=== PATIENT | female | born 1970 | race Two or more races ===

== ENCOUNTER 2017-04-29 08:43 | Inpatient (IN) | payer BC, OTHER ==
[~2017-04-29] VITALS: Ht 167.6 cm; Wt 129.7 kg
[~2017-04-29 08:43] MED LIST: CIPRO500 MG PO; DOXYCYCLINE MO100 MG ORAL; NKM; NORCO 10-325 T1 EACH ORAL; NORCO 5-325 TA1 EACH ORAL
[2017-04-29 08:58] VITALS: BP 98/60
[2017-04-29 09:36] LABS: BASOPHILS % (AUTO) 0.6 % (0.0-2.0); EOSINOPHILS % (AUTO) 1.9 % (0.0-3.0); HEMATOCRIT 33.5 % (37.0-47.0); HEMOGLOBIN 10.8 G/DL (12.0-16.0); LYMPHOCYTES % (AUTO) 16.1 % (20.0-45.0); MEAN CORPUSCULAR VOLUME 92 FL (80-99); MONOCYTES % (AUTO) 7.1 % (1.0-10.0); NEUTROPHILS % (AUTO) 74.3 % (45.0-75.0); PLATELET COUNT 345 K/UL (150-450); RED BLOOD COUNT 3.66 M/UL (4.20-5.40); WHITE BLOOD COUNT 10.6 K/UL (4.8-10.8)
--- NOTE | 2017-04-29 09:39 | Emergency Room Report ---
History of Present Illness General Chief Complaint: Skin Rash/Abscess Source: Patient, Medical Record Present Illness HPI Patient with h/o hydradenitis with worsened pain, fever, drainage from lesions L thigh and between glutei. Has been worsening for several days. Taking motrin with fair relief. Pain now rated 10/10 thigh and buttock area, constant and worse when laying on affected areas, not radiating. Pus drainage from thigh and buttock area. Has had surgical treatment in the past. No dysuria. Menses last was normal. No URI, sore throat, cough, chest pain, NVD, joint pain. 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 Last Menstrual Period: 04/17/17 Reviewed Nursing Documentation: PMH: Agreed, PSxH: Agreed Nursing Documentation-PMH Past Medical History: No History, Except For Hx Cardiac Problems: No - hidradenitis suppurativa Hx Cancer: No Hx Gastrointestinal Problems: No Hx Neurological Problems: No Review of Systems All Other Systems: negative except mentioned in HPI Physical Exam Vital Signs Date Time Temp Pulse Resp B/P (MAP) Pulse Ox O2 Delivery O2 Flow Rate FiO2 04/29/17 08:48 97.4 83 18 117/74 100 Room Air 97.3 Sp02 EP Interpretation: reviewed, normal General Appearance: well appearing, no apparent distress, GCS 15 Head: normocephalic Eyes: bilateral eye normal inspection, bilateral eye PERRL ENT: moist mucus membranes Neck: supple Respiratory: lungs clear, normal breath sounds Cardiovascular #1: regular rate, rhythm Cardiovascular #2: 2+ radial (R) Gastrointestinal: normal inspection, normal bowel sounds, non tender, no mass, non-distended, overweight Genitourinary: normal inspection Musculoskeletal: back normal, gait/station normal, normal range of motion Neurologic: alert, oriented x3, grossly normal Psychiatric: mood/affect normal Skin: warm/dry, other - multiple lesions between thighs, worse L with some drainage, some erythema. Also between glutei Medical Decision Making Diagnostic Impression: Primary Impression: Hidradenitis suppurativa Additional Impression: Abscess or cellulitis of groin ER Course Patient with hydradinitis with worsening of lesions with drainage. Ddx: cellulitis, abscesses amongst others. Evaluation with labs, EKG, CXR, culture. Treatment for pain and antibiotics with IV hydration. EKG without injury. CXR normal. Labs with WBC upper limit normal, mild anemia , glucose 110. Improved with treatment. Will need surgical intervention. Admit med, Dr. Bernardo. Laboratory Tests Test 04/29/17 09:10 White Blood Count 10.6 K/UL (4.8-10.8) Red Blood Count 3.66 M/UL (4.20-5.40) L Hemoglobin 10.8 G/DL (12.0-16.0) L Hematocrit 33.5 % (37.0-47.0) L Mean Corpuscular Volume 92 FL (80-99) Mean Corpuscular Hemoglobin 29.6 PG (27.0-31.0) Mean Corpuscular Hemoglobin Concent 32.3 G/DL (32.0-36.0) Red Cell Distribution Width 13.0 % (11.6-14.8) Platelet Count 345 K/UL (150-450) Mean Platelet Volume 6.4 FL (6.5-10.1) L Neutrophils (%) (Auto) 74.3 % (45.0-75.0) Lymphocytes (%) (Auto) 16.1 % (20.0-45.0) L Monocytes (%) (Auto) 7.1 % (1.0-10.0) Eosinophils (%) (Auto) 1.9 % (0.0-3.0) Basophils (%) (Auto) 0.6 % (0.0-2.0) Prothrombin Time 9.1 SEC (9.30-11.50) L Prothrombin Time INR 0.9 (0.9-1.1) PTT 27 SEC (23-33) Urine Color Yellow Urine Appearance Clear Urine pH 5 (4.5-8.0) Urine Specific [place] 1.025 (1.005-1.035) Urine Protein 1+ (NEGATIVE) H Urine Glucose (UA) Negative (NEGATIVE) Urine Ketones Negative (NEGATIVE) Urine Occult Blood 5+ (NEGATIVE) H Urine Nitrite Negative (NEGATIVE) Urine Bilirubin Negative (NEGATIVE) Urine Urobilinogen Normal MG/DL (0.0-1.0) Urine Leukocyte Esterase 1+ (NEGATIVE) H Urine RBC 20-30 /HPF (0 - 2) H Urine WBC 2-4 /HPF (0 - 2) Urine Squamous Epithelial Cells Moderate /LPF (NONE/OCC) H Urine Bacteria Few /HPF (NONE) Urine HCG, Qualitative Negative Sodium Level 136 MMOL/L (136-145) Potassium Level 3.9 MMOL/L (3.5-5.1) Chloride Level 104 MMOL/L (98-107) Carbon Dioxide Level 26 MMOL/L (21-32) Anion Gap 6 mmol/L (5-15) Blood Urea Nitrogen 13 mg/dL (7-18) Creatinine 0.7 MG/DL (0.55-1.30) Estimate Glomerular Filtration Rate > 60 mL/min (>60) Glucose Level 110 MG/DL (74-106) H Calcium Level 8.4 MG/DL (8.5-10.1) L Total Bilirubin 0.2 MG/DL (0.2-1.0) Aspartate Amino Transferase (AST) 14 U/L (15-37) L Alanine Aminotransferase (ALT) 11 U/L (12-78) L Alkaline Phosphatase 79 U/L (46-116) Total Creatine Kinase 51 U/L (26-308) Total Protein 7.8 G/DL (6.4-8.2) Albumin 2.7 G/DL (3.4-5.0) L Globulin 5.1 g/dL Albumin/Globulin Ratio 0.5 (1.0-2.7) L EKG Diagnostic Results Rate: normal Rhythm: NSR ST Segments: no acute changes Rhythm Strip Diag. Results EP Interpretation: yes Rhythm: NSR, no PVC's, no ectopy Chest X-Ray Diagnostic Results Chest X-Ray Diagnostic Results : Chest X-Ray Ordered: Yes # of Views/Limited/Complete: 1 View Indication: Other EP Interpretation: Yes Interpretation: no consolidation, no effusion, no pneumothorax Impression: No acute disease Electronically Signed by: Arvin Martinez MD Last Vital Signs Date Time Temp Pulse Resp B/P (MAP) Pulse Ox O2 Delivery O2 Flow Rate FiO2 04/29/17 13:09 98.6 79 20 111/69 95 04/29/17 11:20 Room Air Status: improved Disposition: ADMITTED INPATIENT Condition: Serious Referrals: KHRIS NOLAN (PCP) Arvin Martinez M.D. Apr 29, 2017 09:38
[2017-04-29 09:40] LABS: COLOR,URINE YELLOW
[2017-04-29 09:41] LABS: APPEARANCE,URINE CLEAR; BILIRUBIN, URINE NEGATIVE (NEGATIVE); GLUCOSE, URINE (UA) NEGATIVE (NEGATIVE); KETONES,URINE NEGATIVE (NEGATIVE); LEUKOCYTE ESTERASE ,URINE 1+ (NEGATIVE); NITRITE,URINE NEGATIVE (NEGATIVE); PH,URINE 5 (4.5-8.0); PROTEIN,URINE 1+ (NEGATIVE); UROBILINOGEN,URINE NORMAL MG/DL (0.0-1.0)
[2017-04-29 09:44] LABS: ALANINE AMINOTRANSFERASE 11 U/L (12-78); ALBUMIN 2.7 G/DL (3.4-5.0); ALBUMIN/GLOBULIN RATIO 0.5 (1.0-2.7); ALKALINE PHOSPHATASE 79 U/L (46-116); ANION GAP 6 mmol/L (5-15); ASPARTATE AMINO TRANSFERASE 14 U/L (15-37); BLOOD UREA NITROGEN 13 mg/dL (7-18); CALCIUM 8.4 MG/DL (8.5-10.1); CARBON DIOXIDE 26 MMOL/L (21-32); CHLORIDE 104 MMOL/L (98-107); CREATINE KINASE 51 U/L (26-308); CREATININE 0.7 MG/DL (0.55-1.30); POTASSIUM 3.9 MMOL/L (3.5-5.1); SODIUM 136 MMOL/L (136-145)
[2017-04-29 09:49] LABS: INR 0.9 (0.9-1.1)
[2017-04-29 10:01] LABS: BILIRUBIN,TOTAL 0.2 MG/DL (0.2-1.0)
[2017-04-29] MEDS ORDERED: Acetaminophen 650 MG SUPP RECTAL PRN ×2 (10:15)
[2017-04-29] MEDS ORDERED: Zolpidem 5mg tab ORAL PRN (10:15)
[2017-04-29] MEDS ORDERED: Morphine Sulfate 2mg/ml Inj IVP PRN (10:15)
[2017-04-29] MEDS ORDERED: Mylanta II UD 30ml ORAL PRN (10:15)
[2017-04-29] MEDS ORDERED: Morphine Sulfate 4mg/ml Inj IVP PRN (10:15)
[2017-04-29] MEDS ORDERED: Ketorolac 30mg Inj IV ONE (10:30)
[2017-04-29] MEDS ORDERED: Vancomycin 1gm inj IVPB ONE (10:38)
[2017-04-29] MEDS ORDERED: Vancomycin 1 GM in D5W 275 ML IVPB ONE (10:45)
[2017-04-29 11:20] VITALS: BP 108/72
--- NOTE | 2017-04-29 11:42 | Diagnostic Imaging Report ---
Indication: Dyspnea Comparison: 12/05/2014 A single view chest radiograph was obtained. Findings: Cardiomediastinal appearance is within normal limits for age. Pulmonary vascularity is appropriate. The diaphragmatic contour is smooth and costophrenic angles are sharp. No pleural effusions are identified. The bones are unremarkable. Impression: No acute findings
--- NOTE | 2017-04-29 12:51 | History and Physical ---
History of Present Illness General Date patient seen: Apr 29, 2017 Time patient seen: 12:51 Reason for Hospitalization: Abscess Present Illness HPI 46y/o female with pmh of inguinal/groin abscesses s/p multiple I+D and flap elevations who presents with recurrent groin swelling/pain/redness/drainage. Pt last admitted 12/09-12/16 for similar symptoms and underwent surgical debridement and flap closure. Pt states she has been doing well but noted recurrent groin lesions w/ redness/pain/swelling/warmth/drainage. Also w/ intermittent subjective fevers/chills. Denies abd pain, n/v, d/c, chest pain, SOB. Pt states at baseline able to ambulate a couple blocks and a few flights of stairs w/o symptoms. Denies h/o AK/CHF/CKD/DM2/HTN. Allergies: Coded Allergies: Shrimp (Verified Allergy, Unknown, 12/10/15) Medication History Scheduled No Known Medications* (NKM - No Known Medications*), 0 ., (Reported) Scheduled PRN Hydrocodone Bit/Acetaminophen 10-325* ([place] 10-325*), 1 TAB ORAL Q6H PRN for For Pain, (Reported) Patient History History Provided By: Patient, Medical Record, PMD Healthcare decision maker Resuscitation status Full Code Advanced Directive on File Past Medical/Surgical History Past Medical/Surgical History: (1) Hidradenitis suppurativa Family History Family History: Patient reports no known family medical history. Social History Social History: (1) No significant social history Review of Systems Constitutional: Reports: fever, malaise, weakness Eye: Reports: no symptoms ENT: Reports: no symptoms Respiratory: Reports: no symptoms Cardiovascular: Reports: no symptoms Gastrointestinal: Reports: no symptoms Genitourinary: Reports: no symptoms Musculoskeletal: Reports: no symptoms Skin: Reports: lesions Psychiatric: Reports: no symptoms Neurological: Reports: no symptoms Endocrine: Reports: no symptoms Hematologic/Lymphatic: Reports: no symptoms Physical Exam Physical Exam Narrative General: alert, cooperative, no distress, appears stated age Head: normocephalic, without obvious abnormality, atraumatic Eyes: conjunctivae/corneas clear. PERRL, EOM's intact Throat: lips, mucosa, and tongue normal. MMM Neck: supple, symmetrical, trachea midline, and no JVD Lungs: clear to auscultation bilaterally Heart: regular rate and rhythm, S1, S2 normal, no murmur, click, rub or gallop Abdomen: soft, non-tender, non-distended, bowel sounds normal; no masses or organomegaly Extremities: extremities normal, atraumatic, no cyanosis or edema Pulses: 2+ and symmetric Skin: skin color, texture, turgor normal; no rashes or lesions Neurologic: grossly normal, no focal deficits Last 24 Hour Vital Signs Date Time Temp Pulse Resp B/P (MAP) Pulse Ox O2 Delivery O2 Flow Rate FiO2 04/29/17 11:20 98.2 85 20 108/72 99 Room Air 98.2 04/29/17 11:20 98.2 85 20 108/72 99 Room Air 207.1 04/29/17 11:11 98.2 04/29/17 10:41 97.3 04/29/17 08:58 97.3 77 19 98/60 100 Room Air 97.3 04/29/17 08:48 97.4 83 18 117/74 100 Room Air 97.3 Laboratory Tests Test 04/29/17 09:10 White Blood Count 10.6 K/UL (4.8-10.8) Red Blood Count 3.66 M/UL (4.20-5.40) L Hemoglobin 10.8 G/DL (12.0-16.0) L Hematocrit 33.5 % (37.0-47.0) L Mean Corpuscular Volume 92 FL (80-99) Mean Corpuscular Hemoglobin 29.6 PG (27.0-31.0) Mean Corpuscular Hemoglobin Concent 32.3 G/DL (32.0-36.0) Red Cell Distribution Width 13.0 % (11.6-14.8) Platelet Count 345 K/UL (150-450) Mean Platelet Volume 6.4 FL (6.5-10.1) L Neutrophils (%) (Auto) 74.3 % (45.0-75.0) Lymphocytes (%) (Auto) 16.1 % (20.0-45.0) L Monocytes (%) (Auto) 7.1 % (1.0-10.0) Eosinophils (%) (Auto) 1.9 % (0.0-3.0) Basophils (%) (Auto) 0.6 % (0.0-2.0) Prothrombin Time 9.1 SEC (9.30-11.50) L Prothromb Time International Ratio 0.9 (0.9-1.1) Activated Partial Thromboplast Time 27 SEC (23-33) Urine Color Yellow Urine Appearance Clear Urine pH 5 (4.5-8.0) Urine Specific [place] 1.025 (1.005-1.035) Urine Protein 1+ (NEGATIVE) H Urine Glucose (UA) Negative (NEGATIVE) Urine Ketones Negative (NEGATIVE) Urine Occult Blood 5+ (NEGATIVE) H Urine Nitrite Negative (NEGATIVE) Urine Bilirubin Negative (NEGATIVE) Urine Urobilinogen Normal MG/DL (0.0-1.0) Urine Leukocyte Esterase 1+ (NEGATIVE) H Urine RBC 20-30 /HPF (0 - 2) H Urine WBC 2-4 /HPF (0 - 2) Urine Squamous Epithelial Cells Moderate /LPF (NONE/OCC) H Urine Bacteria Few /HPF (NONE) Urine HCG, Qualitative Negative Sodium Level 136 MMOL/L (136-145) Potassium Level 3.9 MMOL/L (3.5-5.1) Chloride Level 104 MMOL/L (98-107) Carbon Dioxide Level 26 MMOL/L (21-32) Anion Gap 6 mmol/L (5-15) Blood Urea Nitrogen 13 mg/dL (7-18) Creatinine 0.7 MG/DL (0.55-1.30) Estimat Glomerular Filtration Rate > 60 mL/min (>60) Glucose Level 110 MG/DL (74-106) H Calcium Level 8.4 MG/DL (8.5-10.1) L Total Bilirubin 0.2 MG/DL (0.2-1.0) Aspartate Amino Transf (AST/SGOT) 14 U/L (15-37) L Alanine Aminotransferase (ALT/SGPT) 11 U/L (12-78) L Alkaline Phosphatase 79 U/L (46-116) Total Creatine Kinase 51 U/L (26-308) Total Protein 7.8 G/DL (6.4-8.2) Albumin 2.7 G/DL (3.4-5.0) L Globulin 5.1 g/dL Albumin/Globulin Ratio 0.5 (1.0-2.7) L Height (Feet): 5 Height (Inches): 6.00 Weight (Pounds): 286 Medications Current Medications Medications (Trade) Dose Ordered Sig/Reese Route PRN Reason Start Time Stop Time Status Last Admin Dose Admin Acetaminophen (Tylenol) 650 mg Q4H PRN ORAL Mild Pain (Pain Scale 1-3) 04/29/17 10:15 05/29/17 10:14 Acetaminophen (Tylenol) 650 mg Q4H PRN ORAL fever 04/29/17 10:15 05/29/17 10:14 Acetaminophen (Tylenol) 650 mg Q4H PRN RECTAL Mild Pain (Pain Scale 1-3) 04/29/17 10:15 05/29/17 10:14 Acetaminophen (Tylenol) 650 mg Q4H PRN RECTAL fever 04/29/17 10:15 05/29/17 10:14 Al Hydroxide/Mg Hydroxide (Mylanta II) 30 ml Q6H PRN ORAL dyspepsia 04/29/17 10:15 05/29/17 10:14 Bisacodyl (Dulcolax) 10 mg HSPRN PRN RECTAL Constipation 04/29/17 10:15 05/29/17 10:14 Dextrose (Dextrose 50%) STAT PRN IV Hypoglycemia 04/29/17 10:15 05/29/17 10:14 Dextrose/Sodium Chloride 1,000 ml @ 75 mls/hr [id number] IV 04/30/17 06:00 05/30/17 05:59 Diphenhydramine HCl (Benadryl) 25 mg Q6H PRN ORAL Itching/Pruritis 04/29/17 10:15 05/29/17 10:14 Docusate Sodium (Colace) 100 mg EVERY 12 HOURS ORAL 04/29/17 21:00 05/29/17 20:59 Morphine Sulfate (Morphine Sulfate) 2 mg Q4H PRN IVP Moderate Pain (Pain Scale 4-6) 04/29/17 10:15 05/06/17 10:14 Morphine Sulfate (Morphine Sulfate) 4 mg Q4H PRN IVP Severe Pain (Pain Scale 7-10) 04/29/17 10:15 05/06/17 10:14 Ondansetron HCl (Zofran) 4 mg Q6H PRN IVP Nausea & Vomiting 04/29/17 10:15 05/29/17 10:14 Polyethylene Glycol (Miralax) 17 gm HSPRN PRN ORAL Constipation 04/29/17 10:15 05/29/17 10:14 Zolpidem Tartrate (Ambien) 5 mg HSPRN PRN ORAL Insomnia 04/29/17 10:15 05/06/17 10:14 Assessment/Plan Problem List: (1) Groin abscess ICD Codes: L02.214 - Cutaneous abscess of groin SNOMED: [id number] (2) Hidradenitis suppurativa Status: stable Assessment/Plan Admit inpt Plastic surgery consulted Check blood cultures x 2 Empiric IV ancef Wound care per surgery Pain control, bowel regimen Supportive care If patient is required to have surgery, based on the patient's medical history, and other available ancillary data, the patient is a LOW risk for an INTERMEDIATE risk procedure. Per the most recent ACC/AHA guidelines, the patient does not need any further cardiopulmonary testing prior to the procedure and there do not appear to be any clear medical contraindications to proceeding with the proposed procedure. METs>4 Discussed with patient, RN, SW/CM, surgery regarding mgmt and dispo Huan Roche M.D. Apr 29, 2017 12:51
[2017-04-29 13:09] VITALS: BP 111/69
[2017-04-29 16:21] VITALS: BP 146/66
[2017-04-29] MEDS: Lactobacillus-GG tablet ORAL SCH (17:38)
[2017-04-29] MEDS ORDERED: Lactobacillus-GG tablet ORAL SCH (18:00)
[2017-04-29 20:00] VITALS: BP 123/70
[2017-04-29] MEDS: Docusate 100mg cap ORAL SCH ×2 (21:00→22:39)
[2017-04-29] MEDS: ceFAZolin sod 1 GM in NS 55 ML IVP SCH (22:39)
[2017-04-30] VITALS (13 sets, daily range): BP systolic 104–141; BP diastolic 63–94
[2017-04-30] MEDS: D5 1/2NS 1,000 ML IV SCH ×3 (05:27→19:20)
[2017-04-30] MEDS: ceFAZolin sod 1 GM in NS 55 ML IVP SCH ×2 (05:28→17:30)
[2017-04-30] MEDS ORDERED: Naloxone 0.4mg/ml Inj IV PRN ×2 (08:00)
[2017-04-30] MEDS ORDERED: Propofol 200mg/20ml IV ONE (08:01)
[2017-04-30] MEDS ORDERED: TransDerm Scop 1mg/72HR Patch TDERMAL ONE (08:02)
[2017-04-30] MEDS ORDERED: Bacitracin 50000 Units Vial ONE (08:02)
[2017-04-30] MEDS ORDERED: Lidocaine 1% 10mg/ml/EPI 0.01mg/ml 50ml INJ ONE (08:02)
[2017-04-30] MEDS ORDERED: NeoSporin Gu Irrig 1ml Amp IRRIG ONE (08:02)
[2017-04-30] MEDS: Docusate 100mg cap ORAL SCH ×2 (08:24→21:28)
[2017-04-30] MEDS: Lactobacillus-GG tablet ORAL SCH ×2 (08:24→17:30)
--- NOTE | 2017-04-30 08:35 | Pre-Procedure Note/Attestation ---
Pre-Procedure Note/Attestation Complete Prior to Procedure Planned Procedure: bilateral Procedure Narrative: Bilateral groin and buttock tissue and lower abdominal tissue debridement and flap elevation Attestation I attest that I discussed the nature of the procedure; its benefits; risks and complications; and alternatives (and the risks and benefits of such alternatives ), prior to the procedure, with the patient (or the patient's legal fulfillment representative). I attest that, if there was a reasonable possibility of needing a blood transfusion, the patient (or the patient's legal fulfillment representative) was given the [facility] standardized written summary, pursuant to the Jd Stephen Blood Safety Act ([place] Health and Safety Code # 1645, as amended). I attest that I re-evaluated the patient just prior to the surgery and that there has been no change in the patient's H&P, except as documented below: KHRIS NOLAN Apr 30, 2017 08:35
[2017-04-30] MEDS ORDERED: Zemuron 50mg/5ml Inj IV ONE (09:30)
[2017-04-30] MEDS ORDERED: Midazolam 2mg/2ml Inj ONE (09:30)
[2017-04-30] MEDS ORDERED: Succinylcholine 20mg/ml 10ml vial ONE (09:30)
[2017-04-30] MEDS ORDERED: LR 1000ml ONE (09:30)
[2017-04-30] MEDS ORDERED: fentaNYL 100 mcg/2 mL IV ONE (09:30)
[2017-04-30] MEDS ORDERED: NS Irrig 1000ml ONE (09:30)
[2017-04-30] MEDS ORDERED: Ketorolac 30mg Inj ONE (09:30)
[2017-04-30] MEDS ORDERED: Sterile Water Irrig 1000ml IRRIG ONE (09:30)
[2017-04-30] MEDS ORDERED: Morphine Sulfate 10mg/ml Inj ONE (09:30)
[2017-04-30] MEDS ORDERED: Surgicel 4in x 8in TOPIC ONE ×2 (10:08→10:51)
[2017-04-30] MEDS ORDERED: LR 1000ml 1,000 ML IVLG SCH (10:28)
--- NOTE | 2017-04-30 10:28 | Anethesia Preoperative Eval ---
Anesthesia Pre-op PMH/ROS General Date of Evaluation: Apr 30, 2017 Time of Evaluation: 09:10 Anesthesiologist: Kamila ASA Score: ASA 3 Mallampati Score Class I : Soft palate, uvula, fauces, pillars visible Class II: Soft palate, uvula, fauces visible Class III: Soft palate, base of uvula visible Class IV: Only hard plate visible Mallampati Classification: Class III Surgeon: Brenda Diagnosis: Bilateral groin HS Surgical Procedure: Excision of bilateral groin HSW Anesthesia History: none Family History: no anesthesia problems Allergies: Coded Allergies: Shrimp (Verified Allergy, Unknown, 12/10/15) Past Medical History Cardiovascular: Denies: HTN, CAD, NC, valve dz, arrhythmia, other Pulmonary: Reports: MELINDA, Denies: asthma, COPD, other Gastrointestinal/Genitourinary: Reports: GERD, Denies: CRI, ESRD, other Neurologic/Psychiatric: Reports: depression/anxiety, Denies: dementia, CVA, TIA, other Endocrine: Denies: DM, hypothyroidism, steroids, other HEENT: Denies: cataract (L), cataract (R), glaucoma, [place] (L), [place] (R), other Hematology/Immune: Reports: anemia - mild, Denies: DVT, bleeding disorder, other Musculoskeletal/Integumentary: Denies: OA, RA, DJD, DDD, edema, other Other: obesity PMH Narrative: as above PSxH Narrative: Multiple Sx for recurrent HS treatment Anesthesia Pre-op Phys. Exam Physician Exam Last Vital Signs Date Time Temp Pulse Resp B/P (MAP) Pulse Ox O2 Delivery O2 Flow Rate FiO2 04/30/17 08:00 98.0 93 18 116/65 99 04/30/17 04:00 Room Air Constitutional: NAD Neurologic: CN 2-12 intact Cardiovascular: RRR, no M/R/G Respiratory: CTA Gastrointestinal: other - obesity Airway Exam Mallampati Score: Class III MO: full Neck: short ROM: full Teeth: missing Dentures: no upper, no lower Anesthesia Pre-op A/P Labs see chart Risk Assessment & Plan Assessment: ASA 3 Plan: GA with ETT Status Change Before Surgery: No Pre-Antibiotics Drug: Ancef 2 gr. Given Within 1 Hr of Incision: Yes Time Given: 09:52 SERENA MENON M.D. Apr 30, 2017 10:28
[2017-04-30] MEDS ORDERED: Meperidine 50mg/ml Inj(FOR RIGORS ONLY) IV PRN ×2 (10:30)
[2017-04-30] MEDS ORDERED: DiphenhydrAMINE 50mg/ml Inj IVP PRN (10:30)
[2017-04-30] MEDS ORDERED: Ketorolac 30mg Inj IV PRN (10:30)
[2017-04-30] MEDS ORDERED: Hydromorphone 0.5mg/0.5ml inj IVP PRN (10:30)
[2017-04-30] MEDS ORDERED: Midazolam 2mg/2ml Inj IVP PRN (10:30)
[2017-04-30] MEDS ORDERED: Rate Change PCA 1 Each MISC PRN (10:45)
--- NOTE | 2017-04-30 10:52 | Operative Note - PDOC ---
Operative Note Operative Note Procedure: Bilateral groin, buttock and lower abdominal debridement and flap elevation Post-op Diagnosis: same as pre-op Surgeon: Brenda [employer] Specialist: Jordy Anesthesia: general Specimen: yes Complications: none Condition: stable Estimated Blood Loss: volume Drains: none Implant(s) used?: No - 50 KHRIS NOLAN Apr 30, 2017 10:51
--- NOTE | 2017-04-30 11:26 | Immediate Post-Op Evaluation ---
Immediate Post-Op Evalulation Immediate Post-Op Evalulation Procedure: Excision of bilateral groin HS Date of Evaluation: Apr 30, 2017 Time of Evaluation: 11:25 IV Fluids: 800 Blood Products: none Estimated Blood Loss: 100 Urinary Output: 200 Blood Pressure Systolic: 135 Blood Pressure Diastolic: 74 Pulse Rate: 82 Respiratory Rate: 20 O2 Sat by Pulse Oximetry: 99 Temperature (Fahrenheit): 97.6 Pain Score (1-10): 2 Nausea: No Vomiting: No Complications none Patient Status: awake, patent, extubated, none Hydration Status: adequate SERENA MENON M.D. Apr 30, 2017 11:26
[2017-04-30] MEDS: PCA HYDROmorphone 1mg/ml 30 ML IV PRN (11:40)
[2017-04-30] MEDS ORDERED: PCA Education Pamphlet MISC ONE (12:00)
--- NOTE | 2017-04-30 12:58 | Cardiology Report ---
APPROVED REPORT EKG Measurement Heart [id number] Normal sinus rhythm Normal ECG
[2017-04-30] MEDS ORDERED: D5 1/2NS 1000ml IV ONE (16:19)
[2017-04-30] MEDS ORDERED: Tubing IV Secondary IV ONE (16:19)
--- NOTE | 2017-04-30 18:47 | Consultation ---
DATE OF CONSULTATION: 04/30/2017 HISTORY OF PRESENT ILLNESS: This is a 46-year-old female admitted to the emergency room for multiple areas of active drainage associated with hidradenitis. The patient presented with pain and induration in multiple areas in her groin and buttock region. She was admitted by the medical team for IV antibiotics. PAST MEDICAL HISTORY: Significant for morbid obesity and hidradenitis. PAST SURGICAL HISTORY: Significant for previous hidradenitis suppurativa excision and reconstruction. MEDICATIONS: Include chronic use of antibiotics. ALLERGIES: Shrimp PHYSICAL EXAMINATION: GENERAL: The patient is alert and oriented x3. HEART: Regular rate and rhythm. ABDOMEN: Soft and nondistended, but reveals tender region in the left lower abdomen consistent with a grade 2/3 hidradenitis. EXTREMITIES: Evaluation of the perineum and upper thigh region reveals multiple areas of active abscesses associated with grade 2 and 3 hidradenitis. ASSESSMENT AND PLAN: This is a 46-year-old female with a known history of hidradenitis suppurativa previously treated and reconstructed, who now presents with new areas of disease in the perineum and lower abdomen. She will require radical excision and reconstruction of these areas. She understands the plan and agrees to proceed. Jm Gutierrez M.D. DR: SHANTI JOB#: [id number] CC: SELENA
[2017-04-30] MEDS: PCA shift volume MISC SCH (19:07)
--- NOTE | 2017-04-30 19:32 | Operative Note - Dictated ---
DATE OF OPERATION: 04/30/2017 PREOPERATIVE DIAGNOSIS: Multiple areas of active hidradenitis in the bilateral groin, upper thigh, buttock and abdominal regions. POSTOPERATIVE DIAGNOSIS: Multiple areas of active hidradenitis in the bilateral groin, upper thigh, buttock and abdominal regions. PROCEDURES: 1. Radical excision of hidradenitis bearing tissue in the following areas 1.1. Right inner buttock. 1.2. Right outer buttock. 1.3. Right perivulvar region. 1.4. Right groin. 1.5. Left perivulvar region. 1.6. Left upper thigh. 1.7. Left groin. 1.8. Left lower abdomen. 2. Elevation of a medial thigh fasciocutaneous flap for staged closure of left groin wound with the wound measuring 20 x 10 cm and the flap measurements were 15 x 10 cm. 3. Elevation of a posterior thigh flap for closure of left groin wound with flap measuring 5 x 5 cm. SURGEON: Jm Gutierrez M.D. LINE THERAPIST: Delia Spence M.D. ANESTHESIA: General. COMPLICATIONS: None. DRAINS: None. ESTIMATED BLOOD LOSS: 50 mL. SPECIMEN: Multiple specimens from the hidradenitis bearing tissues including the right inner buttock, right outer buttock, right perivulvar region, left perivulvar region, right groin, left groin, left upper thigh, and left lower abdominal regions. DISPOSITION: Stable to the recovery room. INDICATIONS FOR SURGERY: This is a 46-year-old female with an advanced history of hidradenitis suppurativa who has previously undergone radical excision and reconstruction about two and half years ago in her perineal and groin regions who now presented with new areas that are diseased and affected by her condition. She presented to the emergency room with significant pain and discomfort in these areas and was started on IV antibiotics for her infection. Upon evaluation by me, I felt that she was an appropriate candidate for staged treatment with first radical excision of the infected tissue followed by reconstruction in a staged fashion. The patient understood the risks and benefits of surgery and agreed to proceed. DETAILS OF THE OPERATION: The patient was brought to the operating room and laid in the supine position on the operating table. After induction of anesthesia, she was placed in lithotomy. We began by marking out all eight areas of abscess and disease within her perineum, thigh, and lower abdominal regions. Once this was done, she was fully prepped and draped and we began by first injecting a total of 20 mL of lidocaine with epinephrine to all the involved areas. Once this was done, we then sequentially began by using a #15 blade to individually removal all infected and diseased hidradenitis bearing tissue. First began on the right inner buttock tissue, a elliptical type of incision was designed. A #15 blade was then used to make the incision, radical excision carried down all way to the level of the fascia. We then went on to the right outer buttock tissue in a similar fashion. This excision was performed. She had diseased bearing tissue in the right perivulvar region inferior to the right vulva. This area was also excised using a #15 blade and the electrocautery in a similar fashion. The left perivulvar tissue was also approached with an elliptical type incision and the disease was removed. Next, the left upper thigh had a single lesion, which was removed as well using a #15 blade and then the right groin was addressed with a small lesion that had to be removed with an elliptical type of incision. The larger areas of disease were in the left groin and left lower abdomen. We first turned our attention to the left lower abdomen. An elliptical incision was designed that measured 10 x 5 cm and a #15 blade was then used to make the skin incision. The electrocautery was then used to radically excise the tissue all way down to the level of the Virginia's fascia. We then turned our attention to the left groin diseased bearing tissue and this was a large area that measured 20 x 10 cm. A #15 blade was used to make the skin incision to excise this all way down the level of the adductor fascia. This defect was quite large and could not be closed primarily and there was also a communication with the left perivulvar tissue where there was an opening that was extending into this area as well. As such, a medial thigh flap as well as the posterior thigh flap that was in the vicinity had to be elevated to allow for definitive tension-free repair. The medial thigh flap was elevated by releasing overlying skin and fascial tissue over the adductor muscles with proximal and distal incisions made to fully mobilize the flap and the superficial femoral artery perforators were perfusing this flap. This allowed for closure of the superior aspect; however, the posterior inferior aspect of the wound required elevation of a posterior thigh flap based off of perforators of the inferior gluteal artery with lateral and medial incisions made to fully mobilize this flap. After these two flaps fully mobilized, we were able to close the wound in a tentative fashion without any tension. The flap measurements for the medial thigh flap was 15 x 10 cm and for the posterior thigh flap was 5 x 5 cm. Once this was done, all the wounds were then copiously irrigated with pulse lavage. Once hemostasis was achieved, all the wounds were packed. The plan will be to bring the patient back to the operating room within 3 to 4 days to perform definitive wound closure. Again the reason for not performing definitive closure at this immediate setting is because of the level of purulent tissue and pus that was encountered. The patient tolerated the procedure well and there were no complications. Jm Gutierrez M.D. DR: DEION JOB#: [id number] CC:
[2017-04-30] MEDS: Heparin 5000 units/ml inj SUBQ SCH (21:29)
--- NOTE | 2017-04-30 22:00 | General Progress Note ---
Assessment/Plan Problem List: (1) Groin abscess ICD Codes: L02.214 - Cutaneous abscess of groin SNOMED: 98480990 (2) Hidradenitis suppurativa ICD Codes: L73.2 - Hidradenitis suppurativa SNOMED: 57339962 Status: stable Assessment/Plan Appreciate plastic surgery rec's s/p bilateral groin, buttock and lower abdominal debridement and flap elevation on 04/30/17 Cont empiric IV ancef F/u blood cultures mIVFs Post operative recommendations include: - encourage mobilization/ambulation - encourage incentive spirometry to optimize pulmonary hygiene - DVT/GI prophylaxis as appropriate--SCDs, HSQ - ctm CBC and hemodynamics - ctm electrolytes, adjust/replete prn - pain control, supportive care, bowel regimen FULL CODE A total of 32min of extra time was spent on this encounter in addition to normal encounter time for care/coordination and counseling. Discussed with pt, RN, SW/CM, surgery regarding mgmt and dispo. Subjective Date patient seen: Apr 30, 2017 Time patient seen: 16:00 ROS Limited/Unobtainable: No Constitutional: Reports: no symptoms HEENT: Reports: no symptoms Cardiovascular: Reports: no symptoms Respiratory: Reports: no symptoms Gastrointestinal/Abdominal: Reports: no symptoms Genitourinary: Reports: no symptoms Neurologic/Psychiatric: Reports: no symptoms Endocrine: Reports: no symptoms Hematologic/Lymphatic: Reports: no symptoms Allergies: Coded Allergies: Shrimp (Verified Allergy, Unknown, 12/10/15) Subjective No acute o/n events s/p bilateral groin, buttock and lower abdominal debridement and flap elevation POD#0 Pt doing well. Pain controlled. Denies f/c, n/v, d/c, chest pain, SOB Objective Last 24 Hour Vital Signs Date Time Temp Pulse Resp B/P (MAP) Pulse Ox O2 Delivery O2 Flow Rate FiO2 04/30/17 20:00 98.3 64 18 119/67 98 Room Air 04/30/17 19:46 97 Nasal Cannula 3.0 32 04/30/17 16:00 98.0 76 18 104/67 97 04/30/17 16:00 97 Nasal Cannula 3.0 04/30/17 16:00 18 04/30/17 13:04 16 04/30/17 12:40 95.0 58 18 109/70 96 04/30/17 12:40 96 Nasal Cannula 3.0 04/30/17 12:30 Nasal Cannula 3.0 32 04/30/17 12:30 96 3.0 32 04/30/17 12:30 16 04/30/17 12:25 15 04/30/17 12:17 98.0 67 15 125/72 100 Nasal Cannula 3.0 04/30/17 12:10 14 04/30/17 12:05 58 18 120/74 100 Nasal Cannula 3.0 04/30/17 12:03 98.3 04/30/17 12:03 98.3 04/30/17 11:55 16 04/30/17 11:50 53 18 120/72 100 Nasal Cannula 3.0 04/30/17 11:40 98.3 04/30/17 11:40 55 16 126/74 100 Nasal Cannula 3.0 04/30/17 11:40 15 04/30/17 11:33 98.3 04/30/17 11:28 53 18 126/73 100 Nasal Cannula 3.0 04/30/17 11:26 207.7 82 20 99 04/30/17 11:23 69 18 141/81 100 Simple Mask 6.0 04/30/17 11:18 97.7 65 15 131/81 100 Simple Mask 6.0 04/30/17 08:00 98.0 93 18 116/65 99 04/30/17 04:00 Room Air 04/30/17 04:00 98.3 72 18 108/63 98 04/30/17 00:00 Room Air 04/30/17 00:00 98.3 79 18 128/94 96 Intake and Output 04/29/17 04/30/17 19:00 07:00 Intake Total 600 ml 315 ml Balance 600 ml 315 ml Intake Oral 300 ml 240 ml IV Total 300 ml 75 ml # Voids 1 3 Height (Feet): 5 Height (Inches): 6.00 Weight (Pounds): 286 Objective General: alert, cooperative, no distress, appears stated age Head: normocephalic, without obvious abnormality, atraumatic Eyes: conjunctivae/corneas clear. PERRL, EOM's intact Throat: lips, mucosa, and tongue normal. MMM Neck: supple, symmetrical, trachea midline, and no JVD Lungs: clear to auscultation bilaterally Heart: regular rate and rhythm, S1, S2 normal, no murmur, click, rub or gallop Abdomen: soft, non-tender, non-distended, bowel sounds normal; no masses or organomegaly Extremities: extremities normal, atraumatic, no cyanosis or edema Pulses: 2+ and symmetric Skin: skin color, texture, turgor normal; no rashes or lesions Neurologic: grossly normal, no focal deficits Huan Roche M.D. Apr 30, 2017 22:00
[2017-05-01] MEDS: ceFAZolin sod 1 GM in NS 55 ML IVP SCH ×3 (01:17→17:33)
[2017-05-01] MEDS: D5 1/2NS 1,000 ML IV SCH (01:34)
[2017-05-01 04:00] VITALS: BP 123/64
[2017-05-01] MEDS: PCA shift volume MISC SCH ×2 (07:00→18:59)
[2017-05-01 08:00] VITALS: BP 109/71
[2017-05-01] MEDS: Docusate 100mg cap ORAL SCH ×2 (08:20→20:52)
[2017-05-01] MEDS: Lactobacillus-GG tablet ORAL SCH ×2 (08:21→17:32)
[2017-05-01] MEDS: Heparin 5000 units/ml inj SUBQ SCH ×2 (08:24→20:52)
--- NOTE | 2017-05-01 09:56 | General Progress Note ---
Progress Note Progress Note Pt seen and examined. POD# 1and doing very well. Dressings are CDI Will take down tomorrow and plan for surgery on Thursday for wound closures. MD AN Jhaveri AMIR May 01, 2017 09:56
[2017-05-01 12:00] VITALS: BP 123/58
--- NOTE | 2017-05-01 12:04 | 48 Hour Post Anesthesia Eval ---
Post Anesthesia Evaluation Procedure: Excision of bilateral groin HS Date of Evaluation: May 01, 2017 Time of Evaluation: 12:03 Blood Pressure Systolic: 110 0: 62 Pulse Rate: 74 Respiratory Rate: 20 Temperature (Fahrenheit): 97.6 O2 Sat by Pulse Oximetry: 98 Airway: patent Nausea: No Vomiting: No Pain Intensity: 3 Hydration Status: adequate Cardiopulmonary Status: stable Mental Status/LOC: patient returned to baseline Follow-up Care/Observations: n/a Post-Anesthesia Complications: none Follow-up care needed: N/A SERENA MENON M.D. May 01, 2017 12:04
[2017-05-01] MEDS: PCA HYDROmorphone 1mg/ml 30 ML IV PRN (13:48)
--- NOTE | 2017-05-01 15:34 | General Progress Note ---
Assessment/Plan Problem List: (1) Groin abscess ICD Codes: L02.214 - Cutaneous abscess of groin SNOMED: 31397406 (2) Hidradenitis suppurativa ICD Codes: L73.2 - Hidradenitis suppurativa SNOMED: 97126166 Status: stable Assessment/Plan Appreciate plastic surgery rec's s/p bilateral groin, buttock and lower abdominal debridement and flap elevation on 04/30/17 Cont empiric IV ancef F/u blood cultures D/c IVFs Post operative recommendations include: - encourage mobilization/ambulation - encourage incentive spirometry to optimize pulmonary hygiene - DVT/GI prophylaxis as appropriate--SCDs, HSQ - ctm CBC and hemodynamics - ctm electrolytes, adjust/replete prn - pain control, supportive care, bowel regimen FULL CODE A total of 31min of extra time was spent on this encounter in addition to normal encounter time for care/coordination and counseling. Discussed with pt, RN, SW/CM, surgery regarding mgmt and dispo. D/w surgery re postop mgmt Subjective Date patient seen: May 01, 2017 Time patient seen: 14:50 ROS Limited/Unobtainable: No Constitutional: Reports: no symptoms HEENT: Reports: no symptoms Cardiovascular: Reports: no symptoms Respiratory: Reports: no symptoms Gastrointestinal/Abdominal: Reports: no symptoms Genitourinary: Reports: no symptoms Neurologic/Psychiatric: Reports: no symptoms Endocrine: Reports: no symptoms Hematologic/Lymphatic: Reports: no symptoms Allergies: Coded Allergies: Shrimp (Verified Allergy, Unknown, 12/10/15) Subjective No acute o/n events s/p bilateral groin, buttock and lower abdominal debridement and flap elevation POD#1 Pt doing well. Didn't sleep well. Pain controlled. Denies f/c, n/v, d/c, chest pain, SOB Objective Last 24 Hour Vital Signs Date Time Temp Pulse Resp B/P (MAP) Pulse Ox O2 Delivery O2 Flow Rate FiO2 05/01/17 14:18 97.6 05/01/17 13:48 18 05/01/17 13:48 97.6 05/01/17 13:40 18 05/01/17 12:04 207.7 74 20 98 05/01/17 12:00 18 05/01/17 12:00 98.6 58 17 123/58 98 05/01/17 08:00 97.7 73 18 109/71 98 05/01/17 08:00 18 05/01/17 04:00 18 05/01/17 04:00 98.3 70 18 123/64 98 Room Air 05/01/17 00:00 18 04/30/17 20:00 98.3 64 18 119/67 98 Room Air 04/30/17 20:00 18 04/30/17 19:46 97 Nasal Cannula 3.0 32 04/30/17 16:00 98.0 76 18 104/67 97 04/30/17 16:00 97 Nasal Cannula 3.0 04/30/17 16:00 18 Intake and Output 04/30/17 05/01/17 19:00 07:00 Intake Total 2017.5 ml 1417.5 ml Output Total 250 ml 2000 ml Balance 1767.5 ml -582.5 ml Intake Oral 630 ml 500 ml IV Total 1387.5 ml 917.5 ml Output Urine Total 150 ml 2000 ml Estimated Blood Loss 100 ml Height (Feet): 5 Height (Inches): 6.00 Weight (Pounds): 286 Objective General: alert, cooperative, no distress, appears stated age Head: normocephalic, without obvious abnormality, atraumatic Eyes: conjunctivae/corneas clear. PERRL, EOM's intact Throat: lips, mucosa, and tongue normal. MMM Neck: supple, symmetrical, trachea midline, and no JVD Lungs: clear to auscultation bilaterally Heart: regular rate and rhythm, S1, S2 normal, no murmur, click, rub or gallop Abdomen: soft, non-tender, non-distended, bowel sounds normal; no masses or organomegaly Extremities: extremities normal, atraumatic, no cyanosis or edema Pulses: 2+ and symmetric Skin: skin color, texture, turgor normal; dressing c/d/i Neurologic: grossly normal, no focal deficits Huan Roche M.D. May 01, 2017 15:34
[2017-05-01 16:00] VITALS: BP 121/68
[2017-05-01 20:38] VITALS: BP 126/69
[2017-05-02 00:41] VITALS: BP 112/65
[2017-05-02] MEDS: ceFAZolin sod 1 GM in NS 55 ML IVP SCH ×3 (01:52→17:41)
[2017-05-02 04:43] VITALS: BP 108/67
[2017-05-02] MEDS: PCA shift volume MISC SCH ×3 (07:06→19:13)
[2017-05-02 08:00] VITALS: BP 117/64
[2017-05-02] MEDS ORDERED: Rate Change PCA 1 Each MISC PRN (08:00)
[2017-05-02] MEDS: Docusate 100mg cap ORAL SCH ×2 (08:14→20:11)
[2017-05-02] MEDS: Lactobacillus-GG tablet ORAL SCH ×2 (08:18→17:41)
[2017-05-02] MEDS: Heparin 5000 units/ml inj SUBQ SCH ×2 (08:22→20:13)
[2017-05-02 08:46] LABS: BASOPHILS % (AUTO) 0.7 % (0.0-2.0); EOSINOPHILS % (AUTO) 2.8 % (0.0-3.0); HEMATOCRIT 28.2 % (37.0-47.0); HEMOGLOBIN 9.3 G/DL (12.0-16.0); LYMPHOCYTES % (AUTO) 22.5 % (20.0-45.0); MEAN CORPUSCULAR VOLUME 91 FL (80-99); MONOCYTES % (AUTO) 8.4 % (1.0-10.0); NEUTROPHILS % (AUTO) 65.6 % (45.0-75.0); PLATELET COUNT 273 K/UL (150-450); RED CELL DISTRIBUTION WIDTH 13.3 % (11.6-14.8); WHITE BLOOD COUNT 9.2 K/UL (4.8-10.8)
--- NOTE | 2017-05-02 10:43 | General Progress Note ---
Progress Note Progress Note Pt seen and examined. POD# 2 and doing well. Dressings to be removed and can shower. To OR on thursday. MD NA Jhaveri AMIR May 02, 2017 10:43
[2017-05-02] MEDS ORDERED: Morphine Sulfate 4mg/ml Inj IVP PRN ×2 (11:00)
[2017-05-02 12:00] VITALS: BP 104/63
[2017-05-02] MEDS ORDERED: D5 1/2NS 1000ml IV ONE (14:29)
[2017-05-02] MEDS ORDERED: Tubing IV Secondary IV ONE (14:29)
[2017-05-02] MEDS: PCA HYDROmorphone 1mg/ml 30 ML IV PRN (15:52)
[2017-05-02 16:00] VITALS: BP 120/71
--- NOTE | 2017-05-02 20:03 | General Progress Note ---
Assessment/Plan Problem List: (1) Groin abscess ICD Codes: L02.214 - Cutaneous abscess of groin SNOMED: [id number] (2) Hidradenitis suppurativa ICD Codes: L73.2 - Hidradenitis suppurativa SNOMED: 92848534 Status: stable Assessment/Plan Appreciate plastic surgery rec's s/p bilateral groin, buttock and lower abdominal debridement and flap elevation on 04/30/17 Plan for 2nd surgery on Mon Cont empiric IV ancef F/u blood cultures--ngtd Repeat labs in AM Post operative recommendations include: - encourage mobilization/ambulation - encourage incentive spirometry to optimize pulmonary hygiene - DVT/GI prophylaxis as appropriate--SCDs, HSQ - ctm CBC and hemodynamics - ctm electrolytes, adjust/replete prn - pain control, supportive care, bowel regimen FULL CODE A total of 31min of extra time was spent on this encounter in addition to normal encounter time for care/coordination and counseling. Discussed with pt, RN, SW/CM, surgery regarding mgmt and dispo. D/w surgery re postop mgmt Subjective Date patient seen: May 02, 2017 Time patient seen: 13:00 ROS Limited/Unobtainable: No Constitutional: Reports: no symptoms HEENT: Reports: no symptoms Cardiovascular: Reports: no symptoms Respiratory: Reports: no symptoms Gastrointestinal/Abdominal: Reports: no symptoms Genitourinary: Reports: no symptoms Neurologic/Psychiatric: Reports: no symptoms Endocrine: Reports: no symptoms Hematologic/Lymphatic: Reports: no symptoms Allergies: Coded Allergies: Shrimp (Verified Allergy, Unknown, 12/10/15) All Systems: reviewed and negative except above Subjective No acute o/n events s/p bilateral groin, buttock and lower abdominal debridement and flap elevation POD#2 Pt doing well. Didn't sleep well. Pain controlled. Denies f/c, n/v, d/c, chest pain, SOB. C/o flare-up of acne on face, thinks it is related to Dilaudid Objective Last 24 Hour Vital Signs Date Time Temp Pulse Resp B/P (MAP) Pulse Ox O2 Delivery O2 Flow Rate FiO2 05/02/17 16:00 19 05/02/17 16:00 98.6 77 20 120/71 97 Room Air 05/02/17 12:00 18 05/02/17 12:00 98.0 70 18 104/63 99 Room Air 05/02/17 08:00 97.9 70 20 117/64 98 Room Air 05/02/17 08:00 20 05/02/17 04:43 98.2 85 17 108/67 98 05/02/17 04:00 17 05/02/17 00:41 98.9 73 17 112/65 98 05/01/17 23:56 18 05/01/17 20:38 99.3 84 18 126/69 97 05/01/17 20:00 17 Intake and Output 05/01/17 05/02/17 19:00 07:00 Intake Total 1172.5 ml 800 ml Output Total 1500 ml 2250 ml Balance -327.5 ml -1450 ml Intake Oral 650 ml 800 ml IV Total 522.5 ml Output Urine Total 1500 ml 2250 ml Laboratory Tests 05/02/17 07:10: White Blood Count 9.2, Red Blood Count 3.10L, Hemoglobin 9.3L, Hematocrit 28.2L , Mean Corpuscular Volume 91, Mean Corpuscular Hemoglobin 29.9, Mean Corpuscular Hemoglobin Concent 32.8, Red Cell Distribution Width 13.3, Platelet Count 273, Mean Platelet Volume 6.5, Neutrophils (%) (Auto) 65.6, Lymphocytes (% ) (Auto) 22.5, Monocytes (%) (Auto) 8.4, Eosinophils (%) (Auto) 2.8, Basophils ( %) (Auto) 0.7 Height (Feet): 5 Height (Inches): 6.00 Weight (Pounds): 286 Objective General: alert, cooperative, no distress, appears stated age Head: normocephalic, without obvious abnormality, atraumatic Eyes: conjunctivae/corneas clear. PERRL, EOM's intact Throat: lips, mucosa, and tongue normal. MMM Neck: supple, symmetrical, trachea midline, and no JVD Lungs: clear to auscultation bilaterally Heart: regular rate and rhythm, S1, S2 normal, no murmur, click, rub or gallop Abdomen: soft, non-tender, non-distended, bowel sounds normal; no masses or organomegaly Extremities: extremities normal, atraumatic, no cyanosis or edema Pulses: 2+ and symmetric Skin: skin color, texture, turgor normal; dressing c/d/i Neurologic: grossly normal, no focal deficits Huan Roche M.D. May 02, 2017 20:03
[2017-05-02 20:18] VITALS: BP 108/64
[2017-05-02] MEDS: Miralax 17gm pkt ORAL PRN (22:15)
[2017-05-03 00:48] VITALS: BP 115/64
[2017-05-03] MEDS: ceFAZolin sod 1 GM in NS 55 ML IVP SCH ×3 (02:10→19:09)
[2017-05-03 04:00] VITALS: BP 103/58
[2017-05-03 05:51] LABS: BASOPHILS % (AUTO) 0.7 % (0.0-2.0); EOSINOPHILS % (AUTO) 2.2 % (0.0-3.0); HEMATOCRIT 27.3 % (37.0-47.0); HEMOGLOBIN 9.3 G/DL (12.0-16.0); LYMPHOCYTES % (AUTO) 16.8 % (20.0-45.0); MEAN CORPUSCULAR VOLUME 90 FL (80-99); NEUTROPHILS % (AUTO) 73.2 % (45.0-75.0); PLATELET COUNT 284 K/UL (150-450); RED BLOOD COUNT 3.03 M/UL (4.20-5.40); WHITE BLOOD COUNT 10.2 K/UL (4.8-10.8)
[2017-05-03 06:11] LABS: ANION GAP 3 mmol/L (5-15); BLOOD UREA NITROGEN 6 mg/dL (7-18); CALCIUM 8.1 MG/DL (8.5-10.1); CARBON DIOXIDE 29 MMOL/L (21-32); CHLORIDE 103 MMOL/L (98-107); CREATININE 0.6 MG/DL (0.55-1.30); POTASSIUM 3.7 MMOL/L (3.5-5.1); SODIUM 135 MMOL/L (136-145)
[2017-05-03] MEDS: PCA shift volume MISC SCH ×2 (07:00→19:00)
[2017-05-03 08:39] VITALS: BP 116/74
[2017-05-03] MEDS: Lactobacillus-GG tablet ORAL SCH ×2 (08:55→19:09)
[2017-05-03] MEDS: Docusate 100mg cap ORAL SCH ×2 (08:55→19:53)
[2017-05-03] MEDS: Heparin 5000 units/ml inj SUBQ SCH ×2 (08:59→19:53)
[2017-05-03] MEDS ORDERED: NS 500ML ONE (10:14)
[2017-05-03 11:55] VITALS: BP 126/62
[2017-05-03 16:20] VITALS: BP 117/70
[2017-05-03] MEDS: PCA HYDROmorphone 1mg/ml 30 ML IV PRN (17:22)
[2017-05-03] MEDS: Miralax 17gm pkt ORAL PRN (19:09)
[2017-05-03 20:00] VITALS: BP 133/89
--- NOTE | 2017-05-03 20:48 | General Progress Note ---
Assessment/Plan Problem List: (1) Groin abscess ICD Codes: L02.214 - Cutaneous abscess of groin SNOMED: [id number] (2) Hidradenitis suppurativa ICD Codes: L73.2 - Hidradenitis suppurativa SNOMED: [id number] Status: stable Assessment/Plan Appreciate plastic surgery rec's s/p bilateral groin, buttock and lower abdominal debridement and flap elevation on 04/30/17 Plan for 2nd surgery on Mon, NPO at [place], IVFs Cont empiric IV ancef F/u blood cultures--ngtd Repeat labs in AM Post operative recommendations include: - encourage mobilization/ambulation - encourage incentive spirometry to optimize pulmonary hygiene - DVT/GI prophylaxis as appropriate--SCDs, HSQ - ctm CBC and hemodynamics - ctm electrolytes, adjust/replete prn - pain control, supportive care, bowel regimen FULL CODE A total of 31min of extra time was spent on this encounter in addition to normal encounter time for care/coordination and counseling. Discussed with pt, RN, SW/CM, surgery regarding mgmt and dispo. D/w surgery re postop mgmt, plan for OR tomorrow Subjective Date patient seen: May 03, 2017 Time patient seen: 12:50 ROS Limited/Unobtainable: No Constitutional: Reports: no symptoms HEENT: Reports: no symptoms Cardiovascular: Reports: no symptoms Respiratory: Reports: no symptoms Gastrointestinal/Abdominal: Reports: no symptoms Genitourinary: Reports: no symptoms Neurologic/Psychiatric: Reports: no symptoms Endocrine: Reports: no symptoms Allergies: Coded Allergies: Shrimp (Verified Allergy, Unknown, 12/10/15) Subjective No acute o/n events s/p bilateral groin, buttock and lower abdominal debridement and flap elevation POD#3 Pt doing well. Didn't sleep well. Denies f/c, n/v, d/c, chest pain, SOB. C/o flare-up of acne on face, thinks it is related to Dilaudid Objective Last 24 Hour Vital Signs Date Time Temp Pulse Resp B/P (MAP) Pulse Ox O2 Delivery O2 Flow Rate FiO2 05/03/17 20:00 17 05/03/17 16:20 98.9 67 20 117/70 97 Room Air 05/03/17 16:00 18 05/03/17 13:21 97 Room Air 21 05/03/17 13:21 Room Air 21 05/03/17 12:00 18 05/03/17 11:55 98.4 72 20 126/62 97 05/03/17 08:39 98.4 78 21 116/74 97 05/03/17 08:00 17 05/03/17 04:00 18 05/03/17 04:00 98.8 77 18 103/58 97 05/03/17 00:48 98.7 72 19 115/64 98 Intake and Output 05/02/17 05/03/17 19:00 07:00 Intake Total 850 ml 800 ml Output Total 1200 ml 2200 ml Balance -350 ml -1400 ml Intake Oral 850 ml 800 ml Output Urine Total 1200 ml 2200 ml Laboratory Tests 05/03/17 05:15: White Blood Count 10.2, Red Blood Count 3.03L, Hemoglobin 9.3L, Hematocrit 27.3L , Mean Corpuscular Volume 90, Mean Corpuscular Hemoglobin 30.7, Mean Corpuscular Hemoglobin Concent 34.1, Red Cell Distribution Width 13.0, Platelet Count 284, Mean Platelet Volume 6.5, Neutrophils (%) (Auto) 73.2, Lymphocytes (% ) (Auto) 16.8L, Monocytes (%) (Auto) 7.0, Eosinophils (%) (Auto) 2.2, Basophils (%) (Auto) 0.7, Sodium Level 135L, Potassium Level 3.7, Chloride Level 103, Carbon Dioxide Level 29, Anion Gap 3L, Blood Urea Nitrogen 6L, Creatinine 0.6, Estimat Glomerular Filtration Rate > 60, Glucose Level 96, Calcium Level 8.1L Height (Feet): 5 Height (Inches): 6.00 Weight (Pounds): 286 Objective General: alert, cooperative, no distress, appears stated age Head: normocephalic, without obvious abnormality, atraumatic Eyes: conjunctivae/corneas clear. PERRL, EOM's intact Throat: lips, mucosa, and tongue normal. MMM Neck: supple, symmetrical, trachea midline, and no JVD Lungs: clear to auscultation bilaterally Heart: regular rate and rhythm, S1, S2 normal, no murmur, click, rub or gallop Abdomen: soft, non-tender, non-distended, bowel sounds normal; no masses or organomegaly Extremities: extremities normal, atraumatic, no cyanosis or edema Pulses: 2+ and symmetric Skin: skin color, texture, turgor normal; dressing c/d/i Neurologic: grossly normal, no focal deficits Huan Roche M.D. May 03, 2017 20:48
[2017-05-03] MEDS: D5NS 1,000 ML IV SCH (21:27)
[2017-05-04] VITALS (15 sets, daily range): BP systolic 96–142; BP diastolic 59–83
[2017-05-04] MEDS: ceFAZolin sod 1 GM in NS 55 ML IVP SCH ×3 (01:30→17:27)
[2017-05-04] MEDS ORDERED: Rate Change PCA 1 Each MISC PRN ×2 (07:00→11:50)
[2017-05-04] MEDS ORDERED: Morphine Sulfate 4mg/ml Inj IVP PRN (07:00)
[2017-05-04] MEDS ORDERED: PCA shift volume MISC SCH (07:00)
[2017-05-04] MEDS ORDERED: Bacitracin 50000 Units Vial ONE (07:29)
[2017-05-04] MEDS ORDERED: NeoSporin Gu Irrig 1ml Amp IRRIG ONE (07:29)
[2017-05-04] MEDS ORDERED: Surgicel 4in x 8in TOPIC ONE (07:29)
[2017-05-04] MEDS ORDERED: Lidocaine 1% 10mg/ml/EPI 0.01mg/ml 50ml INJ ONE (07:29)
[2017-05-04] MEDS ORDERED: PCA HYDROmorphone 1mg/ml 30 ML IV PRN (08:00)
[2017-05-04] MEDS: Docusate 100mg cap ORAL SCH ×2 (08:00→20:06)
[2017-05-04] MEDS: Lactobacillus-GG tablet ORAL SCH ×2 (08:00→17:27)
[2017-05-04] MEDS: Heparin 5000 units/ml inj SUBQ SCH ×2 (08:01→20:07)
[2017-05-04] MEDS ORDERED: LR 1000ml 1,000 ML IVLG SCH (08:44)
[2017-05-04] MEDS ORDERED: LORazepam Inj 2mg/ml 1ml IV PRN (08:45)
[2017-05-04] MEDS ORDERED: oxyCODONE HCL/Acetaminophen 5/325mg ORAL PRN (08:45)
[2017-05-04] MEDS ORDERED: Midazolam 2mg/2ml Inj IVP PRN (08:45)
[2017-05-04] MEDS ORDERED: DiphenhydrAMINE 50mg/ml Inj IVP PRN (08:45)
[2017-05-04] MEDS ORDERED: Labetalol 5mg/ml 20ml vial IV PRN (08:45)
[2017-05-04] MEDS ORDERED: HYDROcodone/Acetamin 7.5/325 tab ORAL PRN (08:45)
[2017-05-04] MEDS ORDERED: fentaNYL 100 mcg/2 mL IV PRN (08:45)
[2017-05-04] MEDS ORDERED: Ketorolac 60mg Inj IV PRN (08:45)
[2017-05-04] MEDS ORDERED: Atropine Inj 1mg/10ml Syr IV PRN (08:45)
[2017-05-04] MEDS ORDERED: Ketorolac 30mg Inj IV PRN (08:45)
[2017-05-04] MEDS ORDERED: Acetaminophen (Non formulary) 100 ML IV ONE (08:45)
[2017-05-04] MEDS ORDERED: Norco 5mg/325mg tab ORAL PRN (08:45)
--- NOTE | 2017-05-04 08:54 | Immediate Post-Op Evaluation ---
Immediate Post-Op Evalulation Immediate Post-Op Evalulation Procedure: Closure of bilateral groin HS Date of Evaluation: May 04, 2017 Time of Evaluation: 11:20 IV Fluids: 700 LR Blood Products: 0 Estimated Blood Loss: 25 Urinary Output: 300 Blood Pressure Systolic: 142 Blood Pressure Diastolic: 77 Pulse Rate: 104 Respiratory Rate: 16 O2 Sat by Pulse Oximetry: 97 Temperature (Fahrenheit): 98.5 Pain Score (1-10): 3 Nausea: No Vomiting: No Complications 0 Patient Status: awake, reacts, patent, extubated, none Hydration Status: adequate Dru grams Ancef IV Given Within 1 Hr of Incision: Yes Time Given: 09:11 Kamlesh Castaneda MD May 04, 2017 08:54
[2017-05-04] MEDS ORDERED: Zemuron 50mg/5ml Inj IV ONE (09:00)
[2017-05-04] MEDS ORDERED: fentaNYL 100 mcg/2 mL IV ONE (09:00)
[2017-05-04] MEDS ORDERED: NS Irrig 1000ml ONE (09:00)
[2017-05-04] MEDS ORDERED: Propofol 1,000mg/ 100ml btl IV ONE (09:00)
[2017-05-04] MEDS ORDERED: LR 1000ml ONE (09:00)
[2017-05-04] MEDS ORDERED: Sterile Water Irrig 1000ml IRRIG ONE (09:00)
[2017-05-04] MEDS ORDERED: Propofol 200mg/20ml IV ONE (09:00)
[2017-05-04] MEDS ORDERED: Lidocaine 1% MPF 10mg/ml 5ml ONE (09:00)
--- NOTE | 2017-05-04 09:03 | Pre-Procedure Note/Attestation ---
Pre-Procedure Note/Attestation Complete Prior to Procedure Planned Procedure: bilateral Procedure Narrative: CLosure of bilateral groin , thigh, and abdominal wounds Attestation I attest that I discussed the nature of the procedure; its benefits; risks and complications; and alternatives (and the risks and benefits of such alternatives ), prior to the procedure, with the patient (or the patient's legal teleservices representative). I attest that, if there was a reasonable possibility of needing a blood transfusion, the patient (or the patient's legal teleservices representative) was given the [facility] standardized written summary, pursuant to the Jd Stephen Blood Safety Act ([place] Health and Safety Code # 1645, as amended). I attest that I re-evaluated the patient just prior to the surgery and that there has been no change in the patient's H&P, except as documented below: KHRIS NOLAN May 04, 2017 09:03
[2017-05-04] MEDS ORDERED: PCA Education Pamphlet MISC ONE (09:15)
[2017-05-04] MEDS: D5NS 1,000 ML IV SCH ×2 (10:20→17:28)
--- NOTE | 2017-05-04 10:47 | Operative Note - PDOC ---
Operative Note Operative Note Procedure: Bilateral groin, buttock and lower abdominal wound closures Post-op Diagnosis: same as pre-op Surgeon: Brenda Rotor Coil Taper: Tammie Anesthesia: general Specimen: yes Complications: none Condition: stable Estimated Blood Loss: minimal Drains: SHELLIE Implant(s) used?: No KHRIS NOLAN May 04, 2017 10:47
[2017-05-04] MEDS: Hydromorphone 0.5mg/0.5ml inj IVP PRN ×3 (11:17→12:06)
[2017-05-04] MEDS ORDERED: Naloxone 0.4mg/ml Inj IV PRN (11:50)
[2017-05-04] MEDS: PCA HYDROmorphone 1mg/ml 30 ML IV PRN (11:57)
--- NOTE | 2017-05-04 16:45 | Operative Note - Dictated ---
DATE OF OPERATION: 05/04/2017 PREOPERATIVE DIAGNOSIS: Multiple open groin, buttock, and abdominal wounds. POSTOPERATIVE DIAGNOSIS: Multiple open groin, buttock, and abdominal wounds. PROCEDURES: 1. Preparation of left lower abdominal wound for secondary closure. 2. Secondary closure of left lower abdominal wound. 3. Secondary closure of left thigh wound. 4. Secondary closure of right groin wound. 5. Adjacent tissue transfer closure of right inferior perivulvar wound measuring 5 x 6 cm. 6. Medial thigh flap re-elevation for closure of left groin wound measuring 15 x 10 cm. The flap measurements are 10 x 5 cm. 7. Re-elevation of posterior thigh flap for closure of left groin wound measuring 5 x 5 cm. SURGEON: Jm Gutierrez M.D. MEAT BONER AND SLICER: Narinder Crump M.D. ANESTHESIA: General. COMPLICATIONS: None. DRAINS: Included one SHELLIE in the left groin wound. DISPOSITION: Stable to the recovery room. INDICATIONS FOR SURGERY: This is a 46-year-old female, who is now four days status post radical excision of infected hidradenitis in bilateral groin, buttock, and lower abdominal regions, who has undergone local wound care, was on IV antibiotics, and is now prepared for definitive closure of her wounds. She understands the risks and benefits of surgery and agrees to proceed. DETAILS OF THE OPERATION: The patient was brought to the operating room and laid in the lithotomy position on the operating table. Her bilateral upper thighs, groin, and lower abdominal regions were prepped and draped in sterile and usual fashion. I first began by debriding some of the nonviable tissue of the left lower abdominal wound. This wound measured 8 x 4 cm, however, there was no need to sterilely elevate flaps for this as it was amenable to tension-free closure, so we pursued a secondary closure of the wound following debridement of the wound. The secondary closure was completed using #0 and 2-0 Vicryl sutures and dre were used to close the skin. There was also a left thigh wound in the inferior mid thigh region that measured 5 x 4 cm. This was also not requiring elevation of skin flaps for closure. As such, a secondary closure was pursued using #0 and 2-0 Vicryl sutures and dre were used to close the skin. There was also a 4 x 4 cm right groin wound that also was amenable to primary closure and so secondary closure was pursued using #0 and 2-0 Vicryl sutures and dre were used to close the skin. The patient's right inferior perivulvar wound measured 5 x 6 cm and this was debrided of some of its nonviable tissue and the skin flaps were elevated on either side to allow for adjacent tissue transfer closure of the wound using #0 and 2-0 Vicryl sutures and 2-0 Prolene was used to close the skin. The central left groin wound was 5 x 10 cm, was clearly not amenable to definitive closure. Flaps that had been previously elevated in the first operation had to be re-elevated and the medial thigh flap was re-elevated based off of perforators of the superficial femoral artery and this was then advanced into the wound and along with a posterior thigh flap that had been previously elevated, that was further mobilized and its tissues that were tethering at its base were further released to allow for tension-free reapproximation of all the tissues in the groin wound as well as in the left perivulvar region. The wounds were closed over a SHELLIE drain, size #15 using #0 and 2-0 Vicryl sutures and a combination of dre and 2-0 Prolene was used to close the skin. All the wounds were then covered with dressings. The patient tolerated the procedure well and of note, the inner buttock wounds that had been previously created from excision of the hidradenitis were felt to be appropriate to be left open given their location and likelihood for dehiscence and high likelihood of infection given the proximity to the fecal stream. The patient tolerated the procedure well. There were no complications. Jm Gutierrez M.D. DR: ILEANA JOB#: [id number] CC:
[2017-05-04] MEDS: PCA shift volume MISC SCH (19:03)
[2017-05-04] MEDS: Miralax 17gm pkt ORAL PRN (20:06)
[2017-05-04] MEDS ORDERED: Zolpidem 5mg tab ORAL PRN (21:00)
--- NOTE | 2017-05-04 22:10 | General Progress Note ---
Assessment/Plan Problem List: (1) Groin abscess ICD Codes: L02.214 - Cutaneous abscess of groin SNOMED: 20220627 (2) Hidradenitis suppurativa ICD Codes: L73.2 - Hidradenitis suppurativa SNOMED: 25307631 Status: stable Assessment/Plan Appreciate plastic surgery rec's s/p bilateral groin, buttock and lower abdominal debridement and flap elevation on 04/30/17 s/p bilateral groin, buttock and lower abdominal wound closures on 05/04/17 Cont empiric IV ancef F/u blood cultures--ngtd Repeat labs in AM Post operative recommendations include: - encourage mobilization/ambulation - encourage incentive spirometry to optimize pulmonary hygiene - DVT/GI prophylaxis as appropriate--SCDs, HSQ - ctm CBC and hemodynamics - ctm electrolytes, adjust/replete prn - pain control, supportive care, bowel regimen FULL CODE A total of 31min of extra time was spent on this encounter in addition to normal encounter time for care/coordination and counseling. Discussed with pt, RN, SW/CM, surgery regarding mgmt and dispo. D/w surgery re postop mgmt Subjective Date patient seen: May 04, 2017 Time patient seen: 16:00 ROS Limited/Unobtainable: No Constitutional: Reports: no symptoms HEENT: Reports: no symptoms Cardiovascular: Reports: no symptoms Respiratory: Reports: no symptoms Gastrointestinal/Abdominal: Reports: no symptoms Genitourinary: Reports: no symptoms Neurologic/Psychiatric: Reports: no symptoms Endocrine: Reports: no symptoms Hematologic/Lymphatic: Reports: no symptoms Allergies: Coded Allergies: Shrimp (Verified Allergy, Unknown, 12/10/15) All Systems: reviewed and negative except above Subjective No acute o/n events s/p bilateral groin, buttock and lower abdominal debridement and flap elevation POD#4 s/p bilateral groin, buttock and lower abdominal wound closures POD#0 Pt doing well. Pain controlled. Denies f/c, n/v, d/c, chest pain, SOB. Objective Last 24 Hour Vital Signs Date Time Temp Pulse Resp B/P (MAP) Pulse Ox O2 Delivery O2 Flow Rate FiO2 05/04/17 20:00 98.4 90 19 105/68 100 Nasal Cannula 3.0 05/04/17 20:00 17 2/19/18 16:00 18 05/04/17 16:00 98.3 89 18 112/61 100 Nasal Cannula 3.0 05/04/17 13:45 97.7 83 18 103/71 97 Nasal Cannula 2.0 05/04/17 12:45 98.4 68 18 110/63 99 Nasal Cannula 2.0 05/04/17 12:40 15 05/04/17 12:25 98.6 70 16 108/59 97 Nasal Cannula 3.0 05/04/17 12:25 98.6 05/04/17 12:25 98.6 05/04/17 12:25 16 05/04/17 12:10 87 16 96/68 97 Nasal Cannula 3.0 05/04/17 12:10 16 05/04/17 12:06 98.5 05/04/17 12:03 98.5 05/04/17 11:57 98.5 05/04/17 11:57 16 05/04/17 11:55 72 11 115/71 97 Nasal Cannula 3.0 05/04/17 11:43 80 19 118/77 97 Nasal Cannula 3.0 05/04/17 11:43 98.5 05/04/17 11:33 98.5 05/04/17 11:33 85 18 129/77 97 Nasal Cannula 3.0 05/04/17 11:25 85 15 124/78 96 Nasal Cannula 3.0 05/04/17 11:17 98.5 05/04/17 11:17 93 13 136/83 97 Nasal Cannula 3.0 05/04/17 11:14 100 15 140/80 97 Simple Mask 6.0 05/04/17 11:09 98.5 105 17 142/77 94 Simple Mask 6.0 05/04/17 11:08 209.3 104 16 97 05/04/17 09:51 Nasal Cannula 3.0 05/04/17 09:50 96 Nasal Cannula 3.0 32 05/04/17 08:00 20 05/04/17 08:00 99.9 91 20 126/69 96 Room Air 05/04/17 04:00 17 05/04/17 00:00 18 05/04/17 00:00 98.1 80 18 117/80 98 Room Air Intake and Output 05/03/17 05/04/17 19:00 07:00 Intake Total 375 ml 900 ml Output Total 700 ml 2000 ml Balance -325 ml -1100 ml Intake Oral 300 ml IV Total 75 ml 900 ml Output Urine Total 700 ml 2000 ml # Bowel Movements 1 Height (Feet): 5 Height (Inches): 6.00 Weight (Pounds): 286 Objective General: alert, cooperative, no distress, appears stated age Head: normocephalic, without obvious abnormality, atraumatic Eyes: conjunctivae/corneas clear. PERRL, EOM's intact Throat: lips, mucosa, and tongue normal. MMM Neck: supple, symmetrical, trachea midline, and no JVD Lungs: clear to auscultation bilaterally Heart: regular rate and rhythm, S1, S2 normal, no murmur, click, rub or gallop Abdomen: soft, non-tender, non-distended, bowel sounds normal; no masses or organomegaly Extremities: extremities normal, atraumatic, no cyanosis or edema Pulses: 2+ and symmetric Skin: skin color, texture, turgor normal; dressing c/d/i Neurologic: grossly normal, no focal deficits Huan Roche M.D. May 04, 2017 22:10
[2017-05-05] VITALS (7 sets, daily range): BP systolic 98–128; BP diastolic 61–70
[2017-05-05] MEDS: ceFAZolin sod 1 GM in NS 55 ML IVP SCH (00:15)
[2017-05-05] MEDS: PCA shift volume MISC SCH ×2 (07:00→19:00)
[2017-05-05] MEDS: Docusate 100mg cap ORAL SCH ×2 (08:27→20:08)
[2017-05-05] MEDS: Lactobacillus-GG tablet ORAL SCH ×2 (08:27→17:10)
[2017-05-05] MEDS: Heparin 5000 units/ml inj SUBQ SCH ×2 (08:28→20:17)
[2017-05-05 09:37] LABS: APPEARANCE,URINE CLEAR; BILIRUBIN, URINE NEGATIVE (NEGATIVE); COLOR,URINE PALE YELLOW; GLUCOSE, URINE (UA) NEGATIVE (NEGATIVE); KETONES,URINE NEGATIVE (NEGATIVE); LEUKOCYTE ESTERASE ,URINE NEGATIVE (NEGATIVE); NITRITE,URINE NEGATIVE (NEGATIVE); PH,URINE 6 (4.5-8.0); PROTEIN,URINE NEGATIVE (NEGATIVE); UROBILINOGEN,URINE NORMAL MG/DL (0.0-1.0)
--- NOTE | 2017-05-05 10:33 | 48 Hour Post Anesthesia Eval ---
Post Anesthesia Evaluation Procedure: Closure of bilateral groin HS Date of Evaluation: May 05, 2017 Time of Evaluation: 10:37 Blood Pressure Systolic: 102 0: 67 Pulse Rate: 89 Respiratory Rate: 18 Temperature (Fahrenheit): 98.1 O2 Sat by Pulse Oximetry: 96 Airway: patent Nausea: No Vomiting: No Pain Intensity: 3 Hydration Status: adequate Cardiopulmonary Status: Stable Mental Status/LOC: patient returned to baseline Follow-up Care/Observations: 0 Post-Anesthesia Complications: 0 Follow-up care needed: N/A Kamlesh Castaneda MD May 05, 2017 10:33
[2017-05-05] MEDS: PCA HYDROmorphone 1mg/ml 30 ML IV PRN (11:53)
[2017-05-05 13:15] LABS: BASOPHILS % (AUTO) 0.4 % (0.0-2.0); EOSINOPHILS % (AUTO) 1.9 % (0.0-3.0); LYMPHOCYTES % (AUTO) 9.4 % (20.0-45.0); MEAN CORPUSCULAR VOLUME 91 FL (80-99); MONOCYTES % (AUTO) 8.4 % (1.0-10.0); NEUTROPHILS % (AUTO) 79.9 % (45.0-75.0); PLATELET COUNT 309 K/UL (150-450); RED CELL DISTRIBUTION WIDTH 13.3 % (11.6-14.8)
[2017-05-05 13:52] LABS: ALANINE AMINOTRANSFERASE < 6 U/L (12-78); ALBUMIN 2.2 G/DL (3.4-5.0); ALBUMIN/GLOBULIN RATIO 0.5 (1.0-2.7); ALKALINE PHOSPHATASE 58 U/L (46-116); ANION GAP 2 mmol/L (5-15); ASPARTATE AMINO TRANSFERASE 10 U/L (15-37); BILIRUBIN,TOTAL 0.4 MG/DL (0.2-1.0); BLOOD UREA NITROGEN 6 mg/dL (7-18); CALCIUM 7.9 MG/DL (8.5-10.1); CARBON DIOXIDE 30 MMOL/L (21-32); CHLORIDE 101 MMOL/L (98-107); CREATININE 0.6 MG/DL (0.55-1.30); POTASSIUM 3.9 MMOL/L (3.5-5.1); SODIUM 133 MMOL/L (136-145)
--- NOTE | 2017-05-05 17:27 | General Progress Note ---
Assessment/Plan Problem List: (1) Sepsis ICD Codes: A41.9 - Sepsis, unspecified organism SNOMED: 77901369 (2) Groin abscess ICD Codes: L02.214 - Cutaneous abscess of groin SNOMED: 26335598 (3) Hidradenitis suppurativa ICD Codes: L73.2 - Hidradenitis suppurativa SNOMED: 37006577 (4) Postoperative fever ICD Codes: R50.82 - Postprocedural fever SNOMED: 126715407 (5) Hyponatremia ICD Codes: E87.1 - Hypo-osmolality and hyponatremia SNOMED: 48176142 (6) Acute blood loss anemia ICD Codes: D62 - Acute posthemorrhagic anemia SNOMED: 924569679 Status: stable Assessment/Plan Appreciate plastic surgery rec's s/p bilateral groin, buttock and lower abdominal debridement and flap elevation on 04/30/17 s/p bilateral groin, buttock and lower abdominal wound closures on 05/04/17 Will change to levaquin given wound cultures results, d/c ancef Repeat U/A Consider ID consult give continues to have fevers F/u blood cultures--ngtd Repeat labs in AM IVFs Post operative recommendations include: - encourage mobilization/ambulation - encourage incentive spirometry to optimize pulmonary hygiene - DVT/GI prophylaxis as appropriate--SCDs, HSQ - ctm CBC and hemodynamics - ctm electrolytes, adjust/replete prn - pain control, supportive care, bowel regimen FULL CODE A total of 33min of extra time was spent on this encounter in addition to normal encounter time for care/coordination and counseling. Discussed with pt, RN, SW/CM, surgery regarding mgmt and dispo. D/w surgery re postop mgmt, fevers , change in antibiotics Subjective Date patient seen: May 05, 2017 Time patient seen: 17:24 ROS Limited/Unobtainable: No Constitutional: Reports: no symptoms HEENT: Reports: no symptoms Cardiovascular: Reports: no symptoms Respiratory: Reports: no symptoms Gastrointestinal/Abdominal: Reports: no symptoms Genitourinary: Reports: no symptoms Neurologic/Psychiatric: Reports: no symptoms Endocrine: Reports: no symptoms Hematologic/Lymphatic: Reports: no symptoms Allergies: Coded Allergies: Shrimp (Verified Allergy, Unknown, 12/10/15) All Systems: reviewed and negative except above Subjective No acute o/n events s/p bilateral groin, buttock and lower abdominal debridement and flap elevation POD#5 s/p bilateral groin, buttock and lower abdominal wound closures POD#1 Fever to 101 early this AM Pt doing well. C/o increase in pain since 2nd surgery but LABOR RELATIONS TEACHER is helping. Denies f/c, n/v, d/c, chest pain, SOB. Objective Last 24 Hour Vital Signs Date Time Temp Pulse Resp B/P (MAP) Pulse Ox O2 Delivery O2 Flow Rate FiO2 05/05/17 15:58 18 05/05/17 12:03 18 05/05/17 12:00 18 05/05/17 12:00 98.3 88 18 99/63 96 Room Air 05/05/17 10:33 208.6 89 18 96 05/05/17 08:00 18 05/05/17 08:00 98.1 89 18 102/67 96 Room Air 05/05/17 05:53 101.1 05/05/17 04:54 101.3 05/05/17 04:00 98.4 88 18 98/62 97 Nasal Cannula 3.0 05/05/17 04:00 18 05/05/17 00:00 18 05/05/17 00:00 98.2 89 18 108/70 100 Nasal Cannula 3.0 05/04/17 20:00 98.4 90 19 105/68 100 Nasal Cannula 3.0 05/04/17 20:00 17 05/04/17 19:00 95 Nasal Cannula 3.0 32 05/04/17 19:00 Nasal Cannula 3.0 32 Intake and Output 05/04/17 05/05/17 19:00 07:00 Intake Total 2442.5 ml 400 ml Output Total 915 ml 1305 ml Balance 1527.5 ml -905 ml Intake Oral 600 ml 400 ml IV Total 1842.5 ml Output Urine Total 850 ml 1300 ml Drainage Total 15 ml 5 ml Estimated Blood Loss 50 ml # Bowel Movements 1 Laboratory Tests 05/05/17 08:45: Urine Color Pale yellow, Urine Appearance Clear, Urine pH 6, Urine Specific [place] 1.005, Urine Protein Negative, Urine Glucose (UA) Negative, Urine Ketones Negative, Urine Occult Blood 3+H, Urine Nitrite Negative, Urine Bilirubin Negative, Urine Urobilinogen Normal, Urine Leukocyte Esterase Negative , Urine RBC 2-4H, Urine WBC 2-4, Urine Squamous Epithelial Cells Few, Urine Bacteria Few 05/05/17 11:54: White Blood Count 13.0H, Red Blood Count 3.10L, Hemoglobin 9.0L, Hematocrit 28.0L, Mean Corpuscular Volume 91, Mean Corpuscular Hemoglobin 29.0, Mean Corpuscular Hemoglobin Concent 32.0, Red Cell Distribution Width 13.3, Platelet Count 309, Mean Platelet Volume 6.5, Neutrophils (%) (Auto) 79.9H, Lymphocytes ( %) (Auto) 9.4L, Monocytes (%) (Auto) 8.4, Eosinophils (%) (Auto) 1.9, Basophils (%) (Auto) 0.4, Sodium Level 133L, Potassium Level 3.9, Chloride Level 101, Carbon Dioxide Level 30, Anion Gap 2L, Blood Urea Nitrogen 6L, Creatinine 0.6, Estimat Glomerular Filtration Rate > 60, Glucose Level 93, Calcium Level 7.9L, Total Bilirubin 0.4, Aspartate Amino Transf (AST/SGOT) 10L, Alanine Aminotransferase (ALT/SGPT) < 6L, Alkaline Phosphatase 58, Total Protein 6.6, Albumin 2.2L, Globulin 4.4, Albumin/Globulin Ratio 0.5L Height (Feet): 5 Height (Inches): 6.00 Weight (Pounds): 286 Objective General: alert, cooperative, no distress, appears stated age Head: normocephalic, without obvious abnormality, atraumatic Eyes: conjunctivae/corneas clear. PERRL, EOM's intact Throat: lips, mucosa, and tongue normal. MMM Neck: supple, symmetrical, trachea midline, and no JVD Lungs: clear to auscultation bilaterally Heart: regular rate and rhythm, S1, S2 normal, no murmur, click, rub or gallop Abdomen: soft, non-tender, non-distended, bowel sounds normal; no masses or organomegaly Extremities: extremities normal, atraumatic, no cyanosis or edema Pulses: 2+ and symmetric Skin: skin color, texture, turgor normal; dressing c/d/i Neurologic: grossly normal, no focal deficits Huan Roche M.D. May 05, 2017 17:27
[2017-05-06 00:28] VITALS: BP 114/72
[2017-05-06 04:40] VITALS: BP 109/62
[2017-05-06] MEDS: PCA shift volume MISC SCH ×2 (07:02→19:15)
[2017-05-06 08:00] VITALS: BP 104/67
[2017-05-06] MEDS ORDERED: Rate Change PCA 1 Each MISC PRN (08:15)
[2017-05-06] MEDS ORDERED: Acetaminophen 650 MG SUPP RECTAL PRN (08:30)
[2017-05-06] MEDS: Docusate 100mg cap ORAL SCH ×2 (09:18→17:31)
[2017-05-06] MEDS: Miralax 17gm pkt ORAL PRN (09:18)
[2017-05-06] MEDS: Lactobacillus-GG tablet ORAL SCH ×2 (09:18→17:31)
[2017-05-06] MEDS: Heparin 5000 units/ml inj SUBQ SCH ×2 (09:21→20:29)
--- NOTE | 2017-05-06 09:52 | General Progress Note ---
Progress Note Progress Note Pt seen and examined. POD# 2 from closure of wounds. Doing well. Will remove dressings and can shower today. Continue IV abx and check CBC. Khris Nolan M.D. KHRIS NOLAN May 06, 2017 09:52
[2017-05-06 10:40] LABS: BASOPHILS % (AUTO) 0.3 % (0.0-2.0); EOSINOPHILS % (AUTO) 1.3 % (0.0-3.0); HEMATOCRIT 25.6 % (37.0-47.0); HEMOGLOBIN 8.5 G/DL (12.0-16.0); LYMPHOCYTES % (AUTO) 8.3 % (20.0-45.0); MEAN CORPUSCULAR VOLUME 90 FL (80-99); MONOCYTES % (AUTO) 6.5 % (1.0-10.0); NEUTROPHILS % (AUTO) 83.6 % (45.0-75.0); PLATELET COUNT 292 K/UL (150-450); RED BLOOD COUNT 2.83 M/UL (4.20-5.40); RED CELL DISTRIBUTION WIDTH 13.1 % (11.6-14.8); WHITE BLOOD COUNT 13.1 K/UL (4.8-10.8)
[2017-05-06 11:07] LABS: ALANINE AMINOTRANSFERASE 11 U/L (12-78); ALBUMIN 2.1 G/DL (3.4-5.0); ALKALINE PHOSPHATASE 60 U/L (46-116); ANION GAP 6 mmol/L (5-15); ASPARTATE AMINO TRANSFERASE 11 U/L (15-37); BILIRUBIN,DIRECT < 0.1 MG/DL (0.0-0.3); BILIRUBIN,TOTAL 0.3 MG/DL (0.2-1.0); BLOOD UREA NITROGEN 5 mg/dL (7-18); CALCIUM 8.2 MG/DL (8.5-10.1); CARBON DIOXIDE 27 MMOL/L (21-32); CHLORIDE 101 MMOL/L (98-107); CREATININE 0.6 MG/DL (0.55-1.30); POTASSIUM 3.7 MMOL/L (3.5-5.1); SODIUM 134 MMOL/L (136-145)
[2017-05-06] MEDS ORDERED: Morphine Sulfate 4mg/ml Inj IVP PRN ×2 (11:50)
[2017-05-06 12:00] VITALS: BP 103/60
[2017-05-06] MEDS: PCA HYDROmorphone 1mg/ml 30 ML IV PRN (13:37)
[2017-05-06 16:00] VITALS: BP 110/68
--- NOTE | 2017-05-06 22:30 | General Progress Note ---
Assessment/Plan Problem List: (1) Sepsis ICD Codes: A41.9 - Sepsis, unspecified organism SNOMED: 62729385 (2) Groin abscess ICD Codes: L02.214 - Cutaneous abscess of groin SNOMED: 37089518 (3) Hidradenitis suppurativa ICD Codes: L73.2 - Hidradenitis suppurativa SNOMED: 03723037 (4) Postoperative fever ICD Codes: R50.82 - Postprocedural fever SNOMED: 246860724 (5) Hyponatremia ICD Codes: E87.1 - Hypo-osmolality and hyponatremia SNOMED: 14375231 (6) Acute blood loss anemia ICD Codes: D62 - Acute posthemorrhagic anemia SNOMED: 049110593 Status: stable Assessment/Plan Appreciate plastic surgery rec's s/p bilateral groin, buttock and lower abdominal debridement and flap elevation on 04/30/17 s/p bilateral groin, buttock and lower abdominal wound closures on 05/04/17 Cont levaquin (05/05-) s/p ancef Repeat U/A--neg Consider ID consult if persistent fevers F/u blood cultures--ngtd Repeat CBC in AM IVFs Post operative recommendations include: - encourage mobilization/ambulation - encourage incentive spirometry to optimize pulmonary hygiene - DVT/GI prophylaxis as appropriate--SCDs, HSQ - ctm CBC and hemodynamics - ctm electrolytes, adjust/replete prn - pain control, supportive care, bowel regimen FULL CODE A total of 32min of extra time was spent on this encounter in addition to normal encounter time for care/coordination and counseling. Discussed with pt, RN, SW/CM, surgery regarding mgmt and dispo. D/w surgery re postop mgmt, fevers , change in antibiotics Subjective Date patient seen: May 06, 2017 Time patient seen: 13:00 ROS Limited/Unobtainable: No Constitutional: Reports: no symptoms, fever HEENT: Reports: no symptoms Cardiovascular: Reports: no symptoms Respiratory: Reports: no symptoms Gastrointestinal/Abdominal: Reports: no symptoms Genitourinary: Reports: no symptoms Neurologic/Psychiatric: Reports: no symptoms Endocrine: Reports: no symptoms Hematologic/Lymphatic: Reports: no symptoms Allergies: Coded Allergies: Shrimp (Verified Allergy, Unknown, 12/10/15) Subjective No acute o/n events s/p bilateral groin, buttock and lower abdominal debridement and flap elevation POD#6 s/p bilateral groin, buttock and lower abdominal wound closures POD#2 Fever to 101 yesterday evening, afebrile this AM Pt doing well. 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 Denies f/c, n/v, d/c, chest pain, SOB. Ambulating. Passing gas, but no BM yet Objective Last 24 Hour Vital Signs Date Time Temp Pulse Resp B/P (MAP) Pulse Ox O2 Delivery O2 Flow Rate FiO2 05/06/17 16:54 Nasal Cannula 3.0 32 05/06/17 16:54 94 Nasal Cannula 3.0 32 05/06/17 16:00 98.6 83 20 110/68 100 Room Air 98.6 05/06/17 16:00 18 05/06/17 12:00 98.1 79 20 103/60 97 Room Air 98.1 05/06/17 12:00 20 05/06/17 08:00 20 05/06/17 08:00 98.6 87 22 104/67 95 98.6 05/06/17 04:40 98.9 99 20 109/62 97 98.9 05/06/17 04:00 18 05/06/17 00:28 98.7 97 20 114/72 98 98.7 05/06/17 00:00 18 05/06/17 00:00 96 Room Air Intake and Output 05/05/17 05/06/17 19:00 07:00 Intake Total 3375 ml 1110 ml Output Total 2800 ml 1701 ml Balance 575 ml -591 ml Intake Oral 360 ml IV Total 675 ml 750 ml Other 2700 ml Output Urine Total 2800 ml 1700 ml Drainage Total 1 ml # Voids 3 Laboratory Tests 05/06/17 09:54: White Blood Count 13.1H, Red Blood Count 2.83L, Hemoglobin 8.5L, Hematocrit 25.6L, Mean Corpuscular Volume 90, Mean Corpuscular Hemoglobin 29.9, Mean Corpuscular Hemoglobin Concent 33.1, Red Cell Distribution Width 13.1, Platelet Count 292, Mean Platelet Volume 6.4L, Neutrophils (%) (Auto) 83.6H, Lymphocytes (%) (Auto) 8.3L, Monocytes (%) (Auto) 6.5, Eosinophils (%) (Auto) 1.3, Basophils (%) (Auto) 0.3, Sodium Level 134L, Potassium Level 3.7, Chloride Level 101, Carbon Dioxide Level 27, Anion Gap 6, Blood Urea Nitrogen 5L, Creatinine 0.6, Estimat Glomerular Filtration Rate > 60, Glucose Level 113H, Calcium Level 8.2L, Total Bilirubin 0.3, Direct Bilirubin < 0.1, Aspartate Amino Transf (AST/SGOT) 11L, Alanine Aminotransferase (ALT/SGPT) 11L, Alkaline Phosphatase 60, Total Protein 6.7, Albumin 2.1L Height (Feet): 5 Height (Inches): 6.00 Weight (Pounds): 286 Objective General: alert, cooperative, no distress, appears stated age Head: normocephalic, without obvious abnormality, atraumatic Eyes: conjunctivae/corneas clear. PERRL, EOM's intact Throat: lips, mucosa, and tongue normal. MMM Neck: supple, symmetrical, trachea midline, and no JVD Lungs: clear to auscultation bilaterally Heart: regular rate and rhythm, S1, S2 normal, no murmur, click, rub or gallop Abdomen: soft, non-tender, non-distended, bowel sounds normal; no masses or organomegaly Extremities: extremities normal, atraumatic, no cyanosis or edema Pulses: 2+ and symmetric Skin: skin color, texture, turgor normal; dressing c/d/i Neurologic: grossly normal, no focal deficits Huan Roche M.D. May 06, 2017 22:30
[2017-05-07] VITALS (8 sets, daily range): BP systolic 99–145; BP diastolic 55–71
[2017-05-07] MEDS: PCA shift volume MISC SCH ×2 (07:00→19:17)
[2017-05-07 07:23] LABS: HEMATOCRIT 24.2 % (37.0-47.0); HEMOGLOBIN 7.9 G/DL (12.0-16.0); MEAN CORPUSCULAR VOLUME 90 FL (80-99); PLATELET COUNT 293 K/UL (150-450); RED BLOOD COUNT 2.69 M/UL (4.20-5.40); RED CELL DISTRIBUTION WIDTH 13.3 % (11.6-14.8); WHITE BLOOD COUNT 10.5 K/UL (4.8-10.8)
--- NOTE | 2017-05-07 08:32 | General Progress Note ---
Progress Note Progress Note Pt seen and examined. Doing well. wounds are clean. WBC is normal. DC home tomorrow or Thursday. KHRIS Singh MD May 07, 2017 08:32
[2017-05-07] MEDS: Lactobacillus-GG tablet ORAL SCH ×2 (09:50→18:20)
[2017-05-07] MEDS: Pantoprazole Inj IVP SCH (09:50)
[2017-05-07] MEDS: Docusate 100mg cap ORAL SCH ×2 (09:50→21:02)
[2017-05-07] MEDS: Heparin 5000 units/ml inj SUBQ SCH ×2 (09:53→21:08)
--- NOTE | 2017-05-07 13:33 | General Progress Note ---
Assessment/Plan Problem List: (1) Sepsis ICD Codes: A41.9 - Sepsis, unspecified organism SNOMED: 10868914 (2) Groin abscess ICD Codes: L02.214 - Cutaneous abscess of groin SNOMED: 56585974 (3) Hidradenitis suppurativa ICD Codes: L73.2 - Hidradenitis suppurativa SNOMED: 00728886 (4) Postoperative fever ICD Codes: R50.82 - Postprocedural fever SNOMED: 983392384 (5) Hyponatremia ICD Codes: E87.1 - Hypo-osmolality and hyponatremia SNOMED: 06192789 (6) Acute blood loss anemia ICD Codes: D62 - Acute posthemorrhagic anemia SNOMED: 088187973 Status: stable Assessment/Plan Appreciate plastic surgery rec's s/p bilateral groin, buttock and lower abdominal debridement and flap elevation on 04/30/17 s/p bilateral groin, buttock and lower abdominal wound closures on 05/04/17 Cont levaquin (05/05-) s/p ancef F/u repeat U/A--neg Consider ID consult if persistent fevers or leukocytopsis F/u blood cultures--ngtd IV venofer for Fe def anemia Post operative recommendations include: - encourage mobilization/ambulation - encourage incentive spirometry to optimize pulmonary hygiene - DVT/GI prophylaxis as appropriate--SCDs, HSQ - ctm CBC and hemodynamics - ctm electrolytes, adjust/replete prn - pain control, supportive care, bowel regimen Home health ordered DC planning for home w/ hh in 1-2 todays FULL CODE A total of 31min of extra time was spent on this encounter in addition to normal encounter time for care/coordination and counseling. Discussed with pt, RN, SW/CM, surgery regarding mgmt and dispo. D/w surgery re dc plan, home health , anemia Subjective Date patient seen: May 07, 2017 Time patient seen: 13:33 ROS Limited/Unobtainable: No Constitutional: Reports: no symptoms HEENT: Reports: no symptoms Cardiovascular: Reports: no symptoms Respiratory: Reports: no symptoms Gastrointestinal/Abdominal: Reports: no symptoms Genitourinary: Reports: no symptoms Neurologic/Psychiatric: Reports: no symptoms Endocrine: Reports: no symptoms Hematologic/Lymphatic: Reports: no symptoms Allergies: Coded Allergies: Shrimp (Verified Allergy, Unknown, 12/10/15) All Systems: reviewed and negative except above Subjective No acute o/n events s/p bilateral groin, buttock and lower abdominal debridement and flap elevation POD#7 s/p bilateral groin, buttock and lower abdominal wound closures POD#3 Afebrile o/n and this AM Pt doing well. C/o increase in pain since 2nd surgery but HOSPITAL MEDICAL ASSISTANT is helping. Denies f/c, n/v, d/c, chest pain, SOB. Ambulating. Passing gas, but no BM yet Objective Last 24 Hour Vital Signs Date Time Temp Pulse Resp B/P (MAP) Pulse Ox O2 Delivery O2 Flow Rate FiO2 05/07/17 12:00 99.1 75 19 103/55 98 99.1 05/07/17 08:19 98.6 90 18 145/70 98 Room Air 98.6 05/07/17 08:00 98.0 75 19 100/55 98 98.0 05/07/17 04:00 18 05/07/17 04:00 98.7 82 20 107/61 98 Room Air 98.7 05/07/17 00:00 18 05/07/17 00:00 98.5 86 20 111/64 100 Room Air 98.5 05/06/17 20:00 18 05/06/17 16:54 Nasal Cannula 3.0 32 05/06/17 16:54 94 Nasal Cannula 3.0 32 05/06/17 16:00 98.6 83 20 110/68 100 Room Air 98.6 05/06/17 16:00 18 Intake and Output 05/06/17 05/07/17 19:00 07:00 Intake Total 300 ml 1050 ml Output Total 1220 ml 1930 ml Balance -920 ml -880 ml Intake Oral 450 ml IV Total 300 ml 600 ml Output Urine Total 1220 ml 1900 ml Drainage Total 30 ml Laboratory Tests 05/07/17 06:20: White Blood Count 10.5, Red Blood Count 2.69L, Hemoglobin 7.9L, Hematocrit 24.2L , Mean Corpuscular Volume 90, Mean Corpuscular Hemoglobin 29.5, Mean Corpuscular Hemoglobin Concent 32.8, Red Cell Distribution Width 13.3, Platelet Count 293, Mean Platelet Volume 6.2L, Neutrophils (%) (Auto) , Lymphocytes (%) ( Auto) , Monocytes (%) (Auto) , Eosinophils (%) (Auto) , Basophils (%) (Auto) , Differential Total Cells Counted 100, Neutrophils % (Manual) 69, Lymphocytes % ( Manual) 21, Monocytes % (Manual) 5, Eosinophils % (Manual) 5H, Basophils % ( Manual) 0, Band Neutrophils 0, Platelet Estimate Adequate, Platelet Morphology Normal, Hypochromasia 3+, Anisocytosis 1+ Height (Feet): 5 Height (Inches): 6.00 Weight (Pounds): 286 Objective General: alert, cooperative, no distress, appears stated age Head: normocephalic, without obvious abnormality, atraumatic Eyes: conjunctivae/corneas clear. PERRL, EOM's intact Throat: lips, mucosa, and tongue normal. MMM Neck: supple, symmetrical, trachea midline, and no JVD Lungs: clear to auscultation bilaterally Heart: regular rate and rhythm, S1, S2 normal, no murmur, click, rub or gallop Abdomen: soft, non-tender, non-distended, bowel sounds normal; no masses or organomegaly Extremities: extremities normal, atraumatic, no cyanosis or edema Pulses: 2+ and symmetric Skin: skin color, texture, turgor normal; dressing c/d/i Neurologic: grossly normal, no focal deficits Huan Roche M.D. May 07, 2017 13:33
[2017-05-07] MEDS: PCA HYDROmorphone 1mg/ml 30 ML IV PRN (13:50)
[2017-05-07] MEDS ORDERED: Iron Sucrose 100 MG in NS 55 ML IV ONE (14:00)
[2017-05-07] MEDS ORDERED: D5NS 1000ml IV ONE (15:51)
[2017-05-07] MEDS ORDERED: Tubing IV Secondary IV ONE (15:51)
[2017-05-07] MEDS: Lactulose 20gm/30ml UDC ORAL PRN (16:33)
[2017-05-07] MEDS ORDERED: Magnesium Citrate Liq Btl ORAL ONE (17:30)
[2017-05-07] MEDS ORDERED: Iron Sucrose 100 MG in NS 55 ML IV SCH (21:00)
[2017-05-08] VITALS: BP 93/57
[2017-05-08 04:07] VITALS: BP 98/63
[2017-05-08] MEDS: PCA shift volume MISC SCH (07:00)
[2017-05-08 08:10] VITALS: BP 115/68
[2017-05-08] MEDS: Pantoprazole Inj IVP SCH (09:27)
[2017-05-08] MEDS: Docusate 100mg cap ORAL SCH ×2 (09:27→21:59)
[2017-05-08] MEDS: Lactobacillus-GG tablet ORAL SCH ×2 (09:27→18:01)
[2017-05-08] MEDS: Heparin 5000 units/ml inj SUBQ SCH ×2 (09:31→21:59)
[2017-05-08 11:46] VITALS: BP 114/79
[2017-05-08] MEDS ORDERED: LEVAQUIN750 MG ORAL (14:30)
--- NOTE | 2017-05-08 14:56 | General Progress Note ---
Assessment/Plan Problem List: (1) Sepsis ICD Codes: A41.9 - Sepsis, unspecified organism SNOMED: 89158398 (2) Groin abscess ICD Codes: L02.214 - Cutaneous abscess of groin SNOMED: 26324960 (3) Hidradenitis suppurativa ICD Codes: L73.2 - Hidradenitis suppurativa SNOMED: 53105705 (4) Postoperative fever ICD Codes: R50.82 - Postprocedural fever SNOMED: 504472862 (5) Hyponatremia ICD Codes: E87.1 - Hypo-osmolality and hyponatremia SNOMED: 18440908 (6) Acute blood loss anemia ICD Codes: D62 - Acute posthemorrhagic anemia SNOMED: 045093721 Status: stable Assessment/Plan Appreciate plastic surgery rec's s/p bilateral groin, buttock and lower abdominal debridement and flap elevation on 04/30/17 s/p bilateral groin, buttock and lower abdominal wound closures on 05/04/17 Cont levaquin (05/05-) s/p ancef F/u repeat U/A--neg F/u blood cultures--ngtd Iron supplementation added for Fe def anemia Post operative recommendations include: - encourage mobilization/ambulation - encourage incentive spirometry to optimize pulmonary hygiene - DVT/GI prophylaxis as appropriate--SCDs, HSQ - ctm CBC and hemodynamics - ctm electrolytes, adjust/replete prn - pain control, supportive care, bowel regimen DC planning for home likey tomorrow AM FULL CODE A total of 32min of extra time was spent on this encounter in addition to normal encounter time for care/coordination and counseling. Discussed with pt, RN, SW/CM, surgery regarding mgmt and dispo. D/w surgery re dc plan, home health , anemia Subjective Date patient seen: May 08, 2017 Time patient seen: 12:00 ROS Limited/Unobtainable: No Constitutional: Reports: no symptoms HEENT: Reports: no symptoms Cardiovascular: Reports: no symptoms Respiratory: Reports: no symptoms Gastrointestinal/Abdominal: Reports: no symptoms Genitourinary: Reports: no symptoms Neurologic/Psychiatric: Reports: no symptoms Endocrine: Reports: no symptoms Hematologic/Lymphatic: Reports: no symptoms Allergies: Coded Allergies: Shrimp (Verified Allergy, Unknown, 12/10/15) All Systems: reviewed and negative except above Subjective No acute o/n events s/p bilateral groin, buttock and lower abdominal debridement and flap elevation POD#8 s/p bilateral groin, buttock and lower abdominal wound closures POD#4 Afebrile o/n and this AM Pt doing well. C/o increase in pain since 2nd surgery but SLIP TENDER is helping. Denies f/c, n/v, d/c, chest pain, SOB. Ambulating. Passing gas, but no BM yet Objective Last 24 Hour Vital Signs Date Time Temp Pulse Resp B/P (MAP) Pulse Ox O2 Delivery O2 Flow Rate FiO2 05/08/17 12:00 18 05/08/17 11:46 98.2 72 20 114/79 99 98.2 05/08/17 08:10 98.2 80 21 115/68 97 98.2 05/08/17 08:00 18 05/08/17 07:36 Room Air 05/08/17 07:36 97 Room Air 21 05/08/17 04:07 98.1 75 18 98/63 99 Room Air 98.1 05/08/17 04:00 18 05/08/17 00:00 18 05/08/17 00:00 98.4 82 18 93/57 98 98.4 05/07/17 20:00 18 05/07/17 20:00 97.9 79 18 120/71 100 97.9 05/07/17 18:50 96 Room Air 05/07/17 18:50 Room Air 05/07/17 16:00 98.2 82 19 99/62 98 98.2 05/07/17 16:00 18 05/07/17 15:23 99.1 Intake and Output 05/07/17 05/08/17 19:00 07:00 Intake Total 480 ml 1000 ml Output Total 1500 ml 2485 ml Balance -1020 ml -1485 ml Intake Oral 480 ml 1000 ml Output Urine Total 1500 ml 2450 ml Drainage Total 35 ml # Voids 1 # Bowel Movements 1 Height (Feet): 5 Height (Inches): 6.00 Weight (Pounds): 286 Objective General: alert, cooperative, no distress, appears stated age Head: normocephalic, without obvious abnormality, atraumatic Eyes: conjunctivae/corneas clear. PERRL, EOM's intact Throat: lips, mucosa, and tongue normal. MMM Neck: supple, symmetrical, trachea midline, and no JVD Lungs: clear to auscultation bilaterally Heart: regular rate and rhythm, S1, S2 normal, no murmur, click, rub or gallop Abdomen: soft, non-tender, non-distended, bowel sounds normal; no masses or organomegaly Extremities: extremities normal, atraumatic, no cyanosis or edema Pulses: 2+ and symmetric Skin: skin color, texture, turgor normal; dressing c/d/i Neurologic: grossly normal, no focal deficits Huan Roche M.D. May 08, 2017 14:56
[2017-05-08 15:58] VITALS: BP 124/73
[2017-05-08 20:00] VITALS: BP 109/67
[2017-05-08 20:08] LABS: % IRON SATURATION 5 % (15-50); IRON 9 ug/dL (50-175); TOTAL IRON BINDING CAPACITY 199 ug/dL (250-450)
[2017-05-08 20:22] LABS: FERRITIN 76 NG/ML (8-388)
[2017-05-08] MEDS ORDERED: traMADol 50mg tab ORAL PRN (21:45)
--- NOTE | 2017-05-09 | Consultation ---
DATE OF CONSULTATION: 05/07/2017 HEMATOLOGY/ONCOLOGY CONSULTATION CONSULTING PHYSICIAN: Fernando Mayfield M.D. REFERRING PHYSICIANS: 1. Huan Roche M.D. 2. Maye Bernardo M.D. REASON FOR CONSULTATION: Evaluation of ongoing anemia and leukocytosis. IDENTIFICATION DATA: Dear Dr. Pressley and Dr. Bernardo: The patient is a pleasant 46-year-old female with past medical history significant for multiple areas of drainage, noted to be consistent with hidradenitis; history of morbid obesity; prior reconstruction procedure; status post multiple I and D and flap elevations, at this time presents with recurrent groin swelling, pain, redness, drainage, noted to be anemic. Hematology Service consulted for further evaluation and treatment as well as the patient noted to have mild leukocytosis. PAST MEDICAL HISTORY: As noted above, hidradenitis suppurativa. PAST SURGICAL HISTORY: Multiple surgeries, status post multiple I and D, flap elevation. MEDICATIONS: Reviewed. SOCIAL HISTORY: No alcohol, tobacco, or illicit drug use. REVIEW OF SYSTEMS: CONSTITUTIONAL: No fever, chills, or night sweats. SKIN: No rashes, bumps, or itching. HEENT: No headache, hearing, or vision changes. BREASTS: No lumps, pain, or discharge. PULMONARY: No cough, sputum, or shortness of breath. GASTROINTESTINAL: No nausea, vomiting, or diarrhea. GENITOURINARY: No dysuria, frequency, or urgency. MUSCULOSKELETAL: No joint swelling, muscle pain, or trauma. PHYSICAL EXAMINATION: VITAL SIGNS: Reviewed. Temperature 98.2 degrees Fahrenheit, pulse rate of 72, respiratory rate 12, blood pressure 114/79, and pulse oximetry 99% on room air. GENERAL: No acute distress. PULMONARY: Decreased breath sounds. CARDIOVASCULAR: Regular rate. No S3 or S4. ABDOMEN: Soft, nontender, and nondistended. EXTREMITIES: No cyanosis, swelling, or edema. LABORATORY AND DIAGNOSTIC DATA: WBC of 10.5, hemoglobin of 9.8, and platelet count 298,000. Anemia workup not yet ordered. INR of 0.9. BUN of 5 and creatinine 0.6. Imaging, chest x-ray from 04/29/2017 normal limits for age. ASSESSMENT AND RECOMMENDATIONS: 1. Anemia due to underlying chronic disease, potentially secondary to heavy menstruation. Continue to closely monitor. Obtain anemia workup. 2. Leukocytosis, likely secondary to reactive process, very mild at this time, also could be secondary to surgery. Continue antibiotics as needed. 3. Anemia due to history of iron-deficiency anemia. The patient is status post intravenous iron treatment. Continue to monitor. 4. Status post bilateral groin and buttock and lower abdominal debridements and flap elevation. 5. Groin abscess. 6. Hyponatremia. I appreciate the consultation. Fernando Mayfield M.D. DR: Farheen JOB#: [id number] CC:
[2017-05-09 04:00] VITALS: BP 105/70
[2017-05-09 08:00] VITALS: BP 99/57
[2017-05-09] MEDS: Heparin 5000 units/ml inj SUBQ SCH (09:00)
[2017-05-09] MEDS: Lactulose 20gm/30ml UDC ORAL PRN (09:39)
[2017-05-09] MEDS: Docusate 100mg cap ORAL SCH (09:40)
[2017-05-09] MEDS: Lactobacillus-GG tablet ORAL SCH (09:40)
--- NOTE | 2017-05-10 11:58 | General Progress Note ---
Assessment/Plan Assessment/Plan 1. Anemia due to underlying chronic disease, potentially secondary to heavy menstruation. --> Continue to closely monitor. --> Anemia workup reviewed. --> Iron 9, TIBC 199, %sat 5. 2. Leukocytosis, likely secondary to reactive process, very mild at this time, also could be secondary to surgery. --> Continue antibiotics as needed. 3. Anemia due to history of iron-deficiency anemia. --> The patient is status post intravenous iron treatment. --> Continue to monitor. 4. Status post bilateral groin and buttock and lower abdominal debridements and flap elevation. 5. Groin abscess. 6. Hyponatremia. Subjective Date patient seen: May 08, 2017 Constitutional: Denies: no symptoms, chills, diaphoresis, fever, malaise, weakness, other HEENT: Denies: no symptoms, eye pain, blurred vision, tearing, double vision, ear pain, ear discharge, nose pain, nose congestion, throat pain, throat swelling, mouth pain, mouth swelling, other Cardiovascular: Denies: no symptoms, chest pain, edema, irregular heart rate, lightheadedness, palpitations, syncope, other Respiratory: Denies: no symptoms, cough, orthopnea, shortness of breath, SOB with excertion, SOB at rest, sputum, stridor, wheezing, other Gastrointestinal/Abdominal: Denies: no symptoms, abdomen distended, abdominal pain, black stools, tarry stools, blood in stool, constipated, diarrhea, difficulty swallowing, nausea, poor appetite, poor fluid intake, rectal bleeding , vomiting, other Genitourinary: Denies: no symptoms, burning, discharge, frequency, flank pain, hematuria, incontinence, pain, urgency, other Neurologic/Psychiatric: Denies: no symptoms, anxiety, depressed, emotional problems, headache, numbness, paresthesia, pre-existing deficit, seizure, tingling, tremors, weakness, other Hematologic/Lymphatic: Reports: anemia Allergies: Coded Allergies: Shrimp (Verified Allergy, Unknown, 12/10/15) Subjective NAD. Resting in bed. No sob or cp. Objective VS - Last 72 Hours, by Label Date Time Temp Pulse Resp B/P (MAP) Pulse Ox O2 Delivery O2 Flow Rate FiO2 05/09/17 11:38 98.1 05/09/17 09:54 98.1 05/09/17 08:00 98.1 99 18 99/57 97 Room Air 98.1 05/09/17 04:00 98.4 82 20 105/70 99 Room Air 98.4 05/08/17 20:00 99.1 93 20 109/67 99 Room Air 99.1 05/08/17 19:41 97 Room Air 05/08/17 19:41 Room Air 05/08/17 16:00 17 05/08/17 15:58 98.6 85 20 124/73 96 98.6 05/08/17 12:00 18 05/08/17 11:46 98.2 72 20 114/79 99 98.2 05/08/17 08:10 98.2 80 21 115/68 97 98.2 05/08/17 08:00 18 05/08/17 07:36 Room Air 05/08/17 07:36 97 Room Air 21 05/08/17 04:07 98.1 75 18 98/63 99 Room Air 98.1 05/08/17 04:00 18 05/08/17 00:00 18 05/08/17 00:00 98.4 82 18 93/57 98 98.4 05/07/17 20:00 18 05/07/17 20:00 97.9 79 18 120/71 100 97.9 05/07/17 18:50 96 Room Air 05/07/17 18:50 Room Air 05/07/17 16:00 98.2 82 19 99/62 98 98.2 05/07/17 16:00 18 05/07/17 15:23 99.1 05/07/17 14:00 18 05/07/17 13:50 99.1 05/07/17 12:00 99.1 75 19 103/55 98 99.1 05/07/17 12:00 18 Labs Test 05/08/17 19:30 Fibrinogen 714 mg/dL (200-400) Iron Level 9 ug/dL (50-175) Total Iron Binding Capacity 199 ug/dL (250-450) Percent Iron Saturation 5 % (15-50) Unsaturated Iron Binding 190 ug/dL (112-346) Ferritin 76 NG/ML (8-388) Height (Feet): 5 Height (Inches): 6.00 Weight (Pounds): 286 General Appearance: no apparent distress Cardiovascular: normal rate Respiratory/Chest: lungs clear Abdomen: non tender Fernando Mayfield May 10, 2017 11:58
--- NOTE | 2017-05-10 12:02 | General Progress Note ---
Assessment/Plan Assessment/Plan 1. Anemia due to underlying chronic disease, potentially secondary to heavy menstruation. --> Hemoglobin goal >7, transfuse if below goal or symptomatic. --> Continue to closely monitor. --> Anemia workup reviewed. --> Iron 9, TIBC 199, %sat 5. 2. Leukocytosis, likely secondary to reactive process, very mild at this time, also could be secondary to surgery. --> Continue antibiotics as needed. 3. Anemia due to history of iron-deficiency anemia. --> The patient is status post intravenous iron treatment. --> Continue to monitor. 4. Status post bilateral groin and buttock and lower abdominal debridements and flap elevation. 5. Groin abscess. 6. Hyponatremia. Subjective Date patient seen: May 09, 2017 Constitutional: Denies: no symptoms, chills, diaphoresis, fever, malaise, weakness, other HEENT: Denies: no symptoms, eye pain, blurred vision, tearing, double vision, ear pain, ear discharge, nose pain, nose congestion, throat pain, throat swelling, mouth pain, mouth swelling, other Cardiovascular: Denies: no symptoms, chest pain, edema, irregular heart rate, lightheadedness, palpitations, syncope, other Respiratory: Denies: no symptoms, cough, orthopnea, shortness of breath, SOB with excertion, SOB at rest, sputum, stridor, wheezing, other Gastrointestinal/Abdominal: Denies: no symptoms, abdomen distended, abdominal pain, black stools, tarry stools, blood in stool, constipated, diarrhea, difficulty swallowing, nausea, poor appetite, poor fluid intake, rectal bleeding , vomiting, other Genitourinary: Denies: no symptoms, burning, discharge, frequency, flank pain, hematuria, incontinence, pain, urgency, other Neurologic/Psychiatric: Denies: no symptoms, anxiety, depressed, emotional problems, headache, numbness, paresthesia, pre-existing deficit, seizure, tingling, tremors, weakness, other Hematologic/Lymphatic: Reports: anemia Allergies: Coded Allergies: Shrimp (Verified Allergy, Unknown, 12/10/15) Subjective Pt improved. On pain control. NAD. Objective Height (Feet): 5 Height (Inches): 6.00 Weight (Pounds): 286 General Appearance: no apparent distress EENT: normal ENT inspection Respiratory/Chest: decreased breath sounds Abdomen: non tender, soft Neurologic: java websphere developer II-XII grossly normal Skin: warm/dry Fernando Mayfield May 10, 2017 12:02
--- NOTE | 2017-05-11 09:00 | Discharge Summary ---
Discharge Summary Hospital Course Date of Admission Apr 29, 2017 at 09:33 Date of Discharge May 09, 2017 at 13:00 Admitting Diagnosis abscess Reason for Hospitalization: abscess HPI 46y/o female with pmh of inguinal/groin abscesses s/p multiple I+D and flap elevations who presents with recurrent groin swelling/pain/redness/drainage. Pt last admitted 12/09-12/16 for similar symptoms and underwent surgical debridement and flap closure. Pt states she has been doing well but noted recurrent groin lesions w/ redness/pain/swelling/warmth/drainage. Also w/ intermittent subjective fevers/chills. Denies abd pain, n/v, d/c, chest pain, SOB. Pt states at baseline able to ambulate a couple blocks and a few flights of stairs w/o symptoms. Denies h/o NE/CHF/CKD/DM2/HTN. Consultations Plastic surgery - Dr. Gutierrez Procedures Bilateral groin, buttock and lower abdominal debridement and flap elevation on Bilateral groin, buttock and lower abdominal wound closures on 05/04/17 Hospital Course Pt was admitted and placed on IV antibiotics. She was seen by surgery and underwent bilateral groin, buttock and lower abdominal debridement and flap elevation on 04/30/17, followed by bilateral groin, buttock and lower abdominal wound closures on 05/04/17. Pt tolerated procedures well. Hospital course complicated by fevers and leukocytosis. Antibiotics adjusted per wound culture with improvement. Once pain controlled and wounds stable, pt was discharged home. Discharge Medications New Medications: Levofloxacin* (Levaquin*) 750 Mg Tablet 750 MG ORAL DAILY for 7 Days, #7 TAB Continued Medications: Hydrocodone Bit/Acetaminophen 10-325* (Berwick 10-325*) 1 Each Tablet 1 TAB ORAL Q6H PRN for For Pain, #30 TAB 0 Refills PRN PAIN Discharge Condition Upon Discharge: stable Discharge Disposition Patient was discharged to Home (01) Discharge Diagnoses: (1) Abscess or cellulitis of groin (2) Hidradenitis suppurativa (3) Sepsis (4) Groin abscess (5) UTI (urinary tract infection) (6) Hyponatremia (7) Acute blood loss anemia (8) Postoperative fever Huan Roche M.D. May 11, 2017 09:00
== END 2017-05-09 13:00 | disposition home or self-care (01) | DRG 576 ==
LOC: EMR 09:15 → 3E 09:33 → EDBEDREQ 09:47
DX: L73.2 Hidradenitis suppurativa (principal); A41.9 Sepsis, unspecified organism; Z68.42 Body mass index [BMI] 45.0-49.9, adult; E66.01 Morbid (severe) obesity due to excess calories; D62 Acute posthemorrhagic anemia; E87.1 Hypo-osmolality and hyponatremia; N39.0 Urinary tract infection, site not specified; L02.214 Cutaneous abscess of groin; D50.9 Iron deficiency anemia, unspecified
CPT/HCPCS: 36415; 71045; 80048; 80053; 80076; 81003; 81025; 82550; 82728; 83540; 83550; 84238; 85007; 85025; 85384; 85610; 85730; 86850; 86900; 86901; 87040; 87070; 87181; 87205; 93005; 94003; 94150; 94760; 99285; J2250; J2405

== ENCOUNTER 2018-01-26 12:14 | Inpatient (IN) | payer OTHER ==
[~2018-01-26] VITALS: Ht 165.1 cm; Wt 136.5 kg
[~2018-01-26 12:14] MED LIST changes: +LEVAQUIN750 MG ORAL
[2018-01-26 12:25] VITALS: BP 101/57
[2018-01-26] MEDS ORDERED: Naloxone 0.4mg/ml Inj IVP PRN (12:46)
[2018-01-26 13:02] LABS: BASOPHILS % (AUTO) 0.7 % (0.0-2.0); EOSINOPHILS % (AUTO) 1.1 % (0.0-3.0); HEMATOCRIT 35.7 % (37.0-47.0); HEMOGLOBIN 11.6 G/DL (12.0-16.0); LYMPHOCYTES % (AUTO) 18.1 % (20.0-45.0); MEAN CORPUSCULAR VOLUME 86 FL (80-99); MONOCYTES % (AUTO) 5.5 % (1.0-10.0); NEUTROPHILS % (AUTO) 74.5 % (45.0-75.0); PLATELET COUNT 408 K/UL (150-450); RED BLOOD COUNT 4.16 M/UL (4.20-5.40); RED CELL DISTRIBUTION WIDTH 13.1 % (11.6-14.8); WHITE BLOOD COUNT 11.2 K/UL (4.8-10.8)
[2018-01-26 13:09] LABS: INR 0.9 (0.9-1.1)
[2018-01-26 13:13] LABS: BILIRUBIN, URINE NEGATIVE (NEGATIVE); GLUCOSE, URINE (UA) NEGATIVE (NEGATIVE); KETONES,URINE NEGATIVE (NEGATIVE); LEUKOCYTE ESTERASE ,URINE 1+ (NEGATIVE); NITRITE,URINE POSITIVE (NEGATIVE); PH,URINE 6 (4.5-8.0); PROTEIN,URINE 3+ (NEGATIVE); UROBILINOGEN,URINE NORMAL MG/DL (0.0-1.0)
[2018-01-26 13:14] LABS: APPEARANCE,URINE SLIGHTLY CLOUDY; COLOR,URINE YELLOW
[2018-01-26 13:17] LABS: ANION GAP 10 mmol/L (5-15); BLOOD UREA NITROGEN 11 mg/dL (7-18); CALCIUM 8.5 MG/DL (8.5-10.1); CARBON DIOXIDE 25 MMOL/L (21-32); CHLORIDE 104 MMOL/L (98-107); CREATININE 0.9 MG/DL (0.55-1.30); POTASSIUM 3.7 MMOL/L (3.5-5.1); SODIUM 139 MMOL/L (136-145)
[2018-01-26 13:23] LABS: ALANINE AMINOTRANSFERASE 16 U/L (12-78); ALBUMIN 3.1 G/DL (3.4-5.0); ALBUMIN/GLOBULIN RATIO 0.6 (1.0-2.7); ALKALINE PHOSPHATASE 78 U/L (46-116); ASPARTATE AMINO TRANSFERASE 13 U/L (15-37); BILIRUBIN,TOTAL 0.3 MG/DL (0.2-1.0)
--- NOTE | 2018-01-26 13:35 | Emergency Room Report ---
History of Present Illness General Chief Complaint: General Complaint Source: Patient, Medical Record Present Illness HPI Patient presents emergency department today complaining of right groin hidradenitis. Patient has had multiple episodes of hidradenitis and require surgery in the past. Patient's surgeon is Dr. Casas. Patient presents today complaining of worsening right buttock pain. She is concerned her hidradenitis getting worse. She denies any fever chest pain shortness breath. She was sent here for evaluation and possible admission. No other modifying factors. No other associated signs and symptoms. No other complaints were noted. Allergies: Coded Allergies: Shrimp (Verified Allergy, Unknown, 12/10/15) Patient History Past Medical History: other - Hidradenitis Past Surgical History: none Pertinent Family History: none Social History: Denies: smoking, alcohol use, drug use Last Menstrual Period: 01/22/18 Reviewed Nursing Documentation: PMH: Agreed; PSxH: Agreed Nursing Documentation-PMH Past Medical History: No History, Except For Hx Cardiac Problems: No - HYDRADENITIS, anemia Hx Cancer: No Hx Gastrointestinal Problems: No Hx Neurological Problems: No Review of Systems All Other Systems: negative except mentioned in HPI Physical Exam Vital Signs Date Time Temp Pulse Resp B/P (MAP) Pulse Ox O2 Delivery O2 Flow Rate FiO2 01/26/18 12:23 98.1 87 18 126/79 96 Room Air Sp02 EP Interpretation: reviewed, normal General Appearance: normal inspection, well appearing, no apparent distress, alert Head: atraumatic Eyes: bilateral eye normal inspection ENT: normal ENT inspection, hearing grossly normal, normal voice Neck: normal inspection, full range of motion, supple, no bony tend Respiratory: normal inspection, lungs clear, normal breath sounds, no respiratory distress, no retraction, no wheezing Cardiovascular #1: regular rate, rhythm, no edema Gastrointestinal: normal inspection, normal bowel sounds, non tender, soft, no guarding, no hernia Genitourinary: no CVA tenderness Musculoskeletal: normal inspection, back normal, normal range of motion Neurologic: normal inspection, alert, responsive, speech normal Psychiatric: normal inspection, judgement/insight normal, mood/affect normal Skin: other - Right groin hidradenitis Medical Decision Making Diagnostic Impression: Primary Impression: Hidradenitis suppurativa ER Course Patient presents emergency department today complaining of right groin swelling. Differential considerations: Abscess, cellulitis, lymphadenopathy. Patient's exam consistent hidradenitis. Case was discussed with Dr. Az atkinson for admission. Patient will be admitted to their service for further treatment. Labs Test 01/26/18 12:35 01/26/18 12:46 Urine Color Yellow Urine Appearance Slightly cloudy Urine pH 6 (4.5-8.0) Urine Specific [place] 1.020 (1.005-1.035) Urine Protein 3+ (NEGATIVE) Urine Glucose (UA) Negative (NEGATIVE) Urine Ketones Negative (NEGATIVE) Urine Blood 5+ (NEGATIVE) Urine Nitrite Positive (NEGATIVE) Urine Bilirubin Negative (NEGATIVE) Urine Urobilinogen Normal MG/DL (0.0-1.0) Urine Leukocyte Esterase 1+ (NEGATIVE) Urine RBC 5-10 /HPF (0 - 2) Urine WBC 2-4 /HPF (0 - 2) Urine Squamous Epithelial Cells Many /LPF (NONE/OCC) Urine Bacteria Moderate /HPF (NONE) Urine HCG, Qualitative Negative (NEGATIVE) White Blood Count 11.2 K/UL (4.8-10.8) Red Blood Count 4.16 M/UL (4.20-5.40) Hemoglobin 11.6 G/DL (12.0-16.0) Hematocrit 35.7 % (37.0-47.0) Mean Corpuscular Volume 86 FL (80-99) Mean Corpuscular Hemoglobin 27.8 PG (27.0-31.0) Mean Corpuscular Hemoglobin Concent 32.4 G/DL (32.0-36.0) Red Cell Distribution Width 13.1 % (11.6-14.8) Platelet Count 408 K/UL (150-450) Mean Platelet Volume 5.9 FL (6.5-10.1) Neutrophils (%) (Auto) 74.5 % (45.0-75.0) Lymphocytes (%) (Auto) 18.1 % (20.0-45.0) Monocytes (%) (Auto) 5.5 % (1.0-10.0) Eosinophils (%) (Auto) 1.1 % (0.0-3.0) Basophils (%) (Auto) 0.7 % (0.0-2.0) Prothrombin Time 10.0 SEC (9.30-11.50) Prothromb Time International Ratio 0.9 (0.9-1.1) Activated Partial Thromboplast Time 28 SEC (23-33) Sodium Level 139 MMOL/L (136-145) Potassium Level 3.7 MMOL/L (3.5-5.1) Chloride Level 104 MMOL/L (98-107) Carbon Dioxide Level 25 MMOL/L (21-32) Anion Gap 10 mmol/L (5-15) Blood Urea Nitrogen 11 mg/dL (7-18) Creatinine 0.9 MG/DL (0.55-1.30) Estimat Glomerular Filtration Rate > 60 mL/min (>60) Glucose Level 112 MG/DL (74-106) Calcium Level 8.5 MG/DL (8.5-10.1) Total Bilirubin 0.3 MG/DL (0.2-1.0) Aspartate Amino Transf (AST/SGOT) 13 U/L (15-37) Alanine Aminotransferase (ALT/SGPT) 16 U/L (12-78) Alkaline Phosphatase 78 U/L (46-116) Total Protein 8.3 G/DL (6.4-8.2) Albumin 3.1 G/DL (3.4-5.0) Globulin 5.2 g/dL Albumin/Globulin Ratio 0.6 (1.0-2.7) Last Vital Signs Date Time Temp Pulse Resp B/P (MAP) Pulse Ox O2 Delivery O2 Flow Rate FiO2 01/26/18 12:25 98.1 85 18 101/57 97 Room Air Status: improved Disposition: ADMITTED INPATIENT Condition: Stable Referrals: Jm Gutierrez MD (PCP) Fransisco Roland MD Jan 26, 2018 13:35
[2018-01-26] MEDS ORDERED: HYDROcodone/Acetamin 10/325 tab ORAL PRN (14:15)
[2018-01-26] MEDS ORDERED: Norco 5mg/325mg tab ORAL PRN (14:15)
[2018-01-26] MEDS ORDERED: Morphine Sulfate 2mg/ml Inj IVP PRN (14:15)
[2018-01-26] MEDS ORDERED: Rate Change PCA 1 Each MISC PRN (14:15)
[2018-01-26] MEDS ORDERED: PCA HYDROmorphone 1mg/ml 30 ML IV PRN (14:15)
[2018-01-26 14:20] VITALS: BP 104/57
--- NOTE | 2018-01-26 14:26 | History and Physical ---
History of Present Illness General Date patient seen: Jan 26, 2018 Time patient seen: 14:00 Reason for Hospitalization: abscess, groin Present Illness HPI 47 yo F PMH of obesity Hidradenitis Suppurativa, Anemia, presents for worsening pain and drainage from B/L groin region. Patient has has history of HS with abscesses in the past and multiple admissions for surgery with Dr. Gutierrez. Patient denies fevers, chills, sob, dysuria chest pain or shortness of breath. She does not regularly exercise but states she is able to walk up a flight of stairs without chest pain or shortness of breath. Patient is also able to carry her groceries without any difficulty. Patient states on last admission the "second antibiotic" given was tolerated better than the first. Upon review of prior records, it appears patient was referring to levaquin being tolerated better than ancef. Allergies: NKDA Meds: occasionally iron sulfate PMH: HS PSH: multiple I and D for HS and groin abscesses in the past FmHx: father- HTN Soc Hx: patient used to smoke occasionally for several years, drinks occasionally, and occasionally uses marijuana Allergies: Coded Allergies: Shrimp (Verified Allergy, Unknown, 12/10/15) Medication History Scheduled Levofloxacin* (Levaquin*), 750 MG ORAL DAILY No Known Medications* (NKM - No Known Medications*), 0 ., (Reported) Scheduled PRN Hydrocodone Bit/Acetaminophen 10-325* ([place] 10-325*), 1 TAB ORAL Q6H PRN for For Pain, (Reported) Patient History Healthcare decision maker Resuscitation status Advanced Directive on File Family History Family History: Patient reports no known family medical history. Review of Systems All Other Systems: negative except mentioned in HPI ROS Narrative all ROS aside from HPI are negative including more than 12 systems Physical Exam General Appearance: WD/WN, no apparent distress, alert, morbidly obese Lines, tubes and drains: peripheral HEENT: normocephalic, atraumatic, anicteric, PERRL Neck: non-tender, normal alignment, supple, normal inspection Respiratory/Chest: chest wall non-tender, lungs clear, normal breath sounds, no respiratory distress, no accessory muscle use Cardiovascular/Chest: normal peripheral pulses, normal rate, regular rhythm, no JVD Abdomen: normal bowel sounds, non tender, soft, no organomegaly, no mass, abnormal bowel sounds Genitourinary/Rectal: other - B/L groin region mid and post, acitve drainage of serous fluid with renderness and erythema b/l Extremities: normal range of motion, non-tender, normal inspection, no calf tenderness, normal capillary refill Skin Exam: normal pigmentation, warm/dry 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: 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 grossly normal, no motor/sensory deficits, oriented x 3 , responsive, normal mood/affect Musculoskeletal: normal muscle bulk Last 24 Hour Vital Signs Date Time Temp Pulse Resp B/P (MAP) Pulse Ox O2 Delivery O2 Flow Rate FiO2 01/26/18 12:25 98.1 85 18 101/57 97 Room Air 01/26/18 12:25 87 18 Room Air 01/26/18 12:23 98.1 87 18 126/79 96 Room Air Laboratory Tests Test 01/26/18 12:35 01/26/18 12:46 Urine Color Yellow Urine Appearance Slightly cloudy Urine pH 6 (4.5-8.0) Urine Specific [place] 1.020 (1.005-1.035) Urine Protein 3+ (NEGATIVE) H Urine Glucose (UA) Negative (NEGATIVE) Urine Ketones Negative (NEGATIVE) Urine Blood 5+ (NEGATIVE) H Urine Nitrite Positive (NEGATIVE) H Urine Bilirubin Negative (NEGATIVE) Urine Urobilinogen Normal MG/DL (0.0-1.0) Urine Leukocyte Esterase 1+ (NEGATIVE) H Urine RBC 5-10 /HPF (0 - 2) H Urine WBC 2-4 /HPF (0 - 2) Urine Squamous Epithelial Cells Many /LPF (NONE/OCC) H Urine Bacteria Moderate /HPF (NONE) H Urine HCG, Qualitative Negative (NEGATIVE) White Blood Count 11.2 K/UL (4.8-10.8) H Red Blood Count 4.16 M/UL (4.20-5.40) L Hemoglobin 11.6 G/DL (12.0-16.0) L Hematocrit 35.7 % (37.0-47.0) L Mean Corpuscular Volume 86 FL (80-99) Mean Corpuscular Hemoglobin 27.8 PG (27.0-31.0) Mean Corpuscular Hemoglobin Concent 32.4 G/DL (32.0-36.0) Red Cell Distribution Width 13.1 % (11.6-14.8) Platelet Count 408 K/UL (150-450) Mean Platelet Volume 5.9 FL (6.5-10.1) L Neutrophils (%) (Auto) 74.5 % (45.0-75.0) Lymphocytes (%) (Auto) 18.1 % (20.0-45.0) L Monocytes (%) (Auto) 5.5 % (1.0-10.0) Eosinophils (%) (Auto) 1.1 % (0.0-3.0) Basophils (%) (Auto) 0.7 % (0.0-2.0) Prothrombin Time 10.0 SEC (9.30-11.50) Prothromb Time International Ratio 0.9 (0.9-1.1) Activated Partial Thromboplast Time 28 SEC (23-33) Sodium Level 139 MMOL/L (136-145) Potassium Level 3.7 MMOL/L (3.5-5.1) Chloride Level 104 MMOL/L (98-107) Carbon Dioxide Level 25 MMOL/L (21-32) Anion Gap 10 mmol/L (5-15) Blood Urea Nitrogen 11 mg/dL (7-18) Creatinine 0.9 MG/DL (0.55-1.30) Estimat Glomerular Filtration Rate > 60 mL/min (>60) Glucose Level 112 MG/DL (74-106) H Calcium Level 8.5 MG/DL (8.5-10.1) Total Bilirubin 0.3 MG/DL (0.2-1.0) Aspartate Amino Transf (AST/SGOT) 13 U/L (15-37) L Alanine Aminotransferase (ALT/SGPT) 16 U/L (12-78) Alkaline Phosphatase 78 U/L (46-116) Total Protein 8.3 G/DL (6.4-8.2) H Albumin 3.1 G/DL (3.4-5.0) L Globulin 5.2 g/dL Albumin/Globulin Ratio 0.6 (1.0-2.7) L Height (Feet): 5 Height (Inches): 6.00 Weight (Pounds): 300 Medications Current Medications Medications (Trade) Dose Ordered Sig/Reese Route PRN Reason Start Time Stop Time Status Last Admin Dose Admin Acetaminophen (Tylenol) 650 mg Q4H PRN ORAL Mild Pain (Pain Scale 1-3) 01/26/18 14:15 02/25/18 14:14 UNV Acetaminophen (Tylenol) 650 mg Q4H PRN ORAL fever 01/26/18 14:15 02/25/18 14:14 UNV Acetaminophen/ Hydrocodone Bitart ([place] 10/325) 1 tab Q4H PRN ORAL For Pain 01/26/18 14:15 02/02/18 14:14 UNV Acetaminophen/ Hydrocodone Bitart ([place] 5/325) 1 tab Q4H PRN ORAL Moderate Pain (Pain Scale >6) 01/26/18 14:15 02/02/18 14:14 UNV Dextrose (Dextrose 50%) 25 ml Q30M PRN IV Hypoglycemia 01/26/18 14:15 02/25/18 14:14 UNV Dextrose (Dextrose 50%) 50 ml Q30M PRN IV Hypoglycemia 01/26/18 14:15 02/25/18 14:14 UNV Docusate Sodium (Colace) 200 mg EVERY 12 HOURS ORAL 01/26/18 21:00 02/25/18 20:59 UNV Heparin Sodium (Porcine) (Heparin 5000 units/ml) 5,000 units EVERY 12 HOURS SUBQ 01/26/18 21:00 02/25/18 20:59 UNV Hydromorphone HCl 30 ml @ 0 mls/hr Q24H PRN IV For Pain 01/26/18 14:15 01/28/18 14:14 UNV Magnesium Hydroxide (Mom) 30 ml HSPRN PRN ORAL Constipation 01/26/18 14:15 02/25/18 14:14 UNV Miscellaneous Medication (PLUNKET NURSE Education Pamphlet) 1 ea ONCE ONCE MISC 01/26/18 14:15 01/26/18 14:16 UNV Miscellaneous Medication (PLUNKET NURSE Rate Change) 1 ea DAILY PRN MISC rate change 01/26/18 14:15 01/28/18 14:14 UNV Miscellaneous Medication (PLUNKET NURSE shift volume) 1 ea Q12HR@0700,1900 MISC 01/26/18 19:00 01/28/18 18:59 UNV Morphine Sulfate (Morphine Sulfate) 2 mg Q4H PRN IVP breakthrough 01/26/18 14:15 02/02/18 14:14 UNV Naloxone HCl (Narcan) 0.1 mg Q1M PRN IVP RR<10/min OR SBP<90 mmHg 01/26/18 14:15 01/28/18 14:14 UNV Ondansetron HCl (Zofran) 4 mg Q6H PRN IVP Nausea & Vomiting 01/26/18 14:15 02/25/18 14:14 UNV Pantoprazole (Protonix) 40 mg DAILY ORAL 01/27/18 09:00 02/26/18 08:59 UNV Sodium Chloride 1,000 ml @ 100 mls/hr Q10H IVLG 01/26/18 15:15 02/25/18 15:14 UNV Zolpidem Tartrate (Ambien) 5 mg HSPRN PRN ORAL Insomnia 01/26/18 14:15 02/02/18 14:14 UNV Assessment/Plan Problem List: (1) Groin abscess ICD Codes: L02.214 - Cutaneous abscess of groin SNOMED: 06525313 (2) Hidradenitis suppurativa ICD Codes: L73.2 - Hidradenitis suppurativa SNOMED: 69883961 (3) Anemia ICD Codes: D64.9 - Anemia, unspecified SNOMED: 979510908 Qualifiers: Qualified Codes: D64.9 - Anemia, unspecified Status: stable Assessment/Plan Hidradenitis suppurative with Groin Abscess - consult Dr. Gutierrez - IVF - IV ABX - wound care - pain control - mobilization - bowel regimen - baseline EKG reviewed with NSR, no ST or T wave changes Anemia - patient currently menstruating - iron panel - transfuse if Hgb < 70 - continue to monitor If patient is required to have surgery, based on the patient's medical history, and other available ancillary data, the patient is a LOW risk for an INTERMEDIATE risk procedure. Per the most recent ACC/AHA guidelines, the patient does not need any further cardiopulmonary testing prior to the procedure and there do not appear to be any clear medical contraindications to proceeding with the proposed procedure. METS>4 I have spent 70 minutes regarding patient care and counseling and 35 minutes of face to face time with the patient. Jen Gonzalez DO Jan 26, 2018 14:26
[2018-01-26 14:30] VITALS: BP 121/67
[2018-01-26 15:47] VITALS: BP 127/80
[2018-01-26 16:12] LABS: % IRON SATURATION 9 % (15-50); IRON 25 ug/dL (50-175); TOTAL IRON BINDING CAPACITY 285 ug/dL (250-450)
[2018-01-26] MEDS ORDERED: PCA Education Pamphlet MISC ONE (17:00)
[2018-01-26] MEDS ORDERED: PCA shift volume MISC SCH (19:00)
[2018-01-26 20:00] VITALS: BP 112/59
[2018-01-26] MEDS ORDERED: Zolpidem 5mg tab ORAL PRN (21:00)
[2018-01-26] MEDS ORDERED: Milk of Magnesia 30ml Ud ORAL PRN (21:00)
[2018-01-26] MEDS: Docusate 100mg cap ORAL SCH (21:00)
[2018-01-26] MEDS: Heparin 5000 units/ml inj SUBQ SCH (22:07)
[2018-01-27] VITALS (20 sets, daily range): BP systolic 100–133; BP diastolic 56–86
[2018-01-27 06:38] LABS: BASOPHILS % (AUTO) 0.5 % (0.0-2.0); EOSINOPHILS % (AUTO) 2.6 % (0.0-3.0); HEMATOCRIT 31.3 % (37.0-47.0); HEMOGLOBIN 10.2 G/DL (12.0-16.0); LYMPHOCYTES % (AUTO) 25.5 % (20.0-45.0); MEAN CORPUSCULAR VOLUME 87 FL (80-99); NEUTROPHILS % (AUTO) 63.4 % (45.0-75.0); PLATELET COUNT 346 K/UL (150-450); RED BLOOD COUNT 3.58 M/UL (4.20-5.40); RED CELL DISTRIBUTION WIDTH 13.3 % (11.6-14.8); WHITE BLOOD COUNT 7.6 K/UL (4.8-10.8)
[2018-01-27] MEDS ORDERED: Acetaminophen IV (Non formulary) 1,000 MG/100 ML ML IV ONE (07:00)
[2018-01-27 07:22] LABS: ANION GAP 10 mmol/L (5-15); CARBON DIOXIDE 24 MMOL/L (21-32); CHLORIDE 105 MMOL/L (98-107); POTASSIUM 3.6 MMOL/L (3.5-5.1); SODIUM 139 MMOL/L (136-145)
[2018-01-27 07:35] LABS: BLOOD UREA NITROGEN 12 mg/dL (7-18); CHOLESTEROL 158 MG/DL (< 200); CREATININE 0.7 MG/DL (0.55-1.30); HDL CHOLESTEROL 38 MG/DL (40-60); TRIGLYCERIDES 107 MG/DL (30-150)
--- NOTE | 2018-01-27 08:26 | General Progress Note ---
Assessment/Plan Problem List: (1) Abscess or cellulitis of groin SNOMED: 392127199 (2) Hidradenitis suppurativa ICD Codes: L73.2 - Hidradenitis suppurativa SNOMED: 55878795 (3) Anemia ICD Codes: D64.9 - Anemia, unspecified SNOMED: 085131364 Qualifiers: Qualified Codes: D64.9 - Anemia, unspecified Status: stable Assessment/Plan Hidradenitis suppurative with Groin Abscess - planned for procedure per Dr. Gutierrez - cont fluids - has been npo since midnight - IV ABX, lvq, states she believes she had abnormal reaction to penicillins in the past - wound care - pain control - mobilization - bowel regimen - baseline EKG reviewed with NSR, no ST or T wave changes Anemia - patient currently menstruating - iron panel - transfuse if Hgb < 7 - continue to monitor If patient is required to have surgery, based on the patient's medical history, and other available ancillary data, the patient is a LOW risk for an INTERMEDIATE risk procedure. Per the most recent ACC/AHA guidelines, the patient does not need any further cardiopulmonary testing prior to the procedure and there do not appear to be any clear medical contraindications to proceeding with the proposed procedure. METS>4 I have spent 68 minutes regarding patient care and counseling and 35 minutes of face to face time with the patient. Thank you Please feel free to contact me at any time Chente Hunt MD [facility] Subjective Allergies: Coded Allergies: Shrimp (Verified Allergy, Unknown, 12/10/15) All Systems: reviewed and negative except above Subjective Doing well denies any complaints planned for procedure today with plastics no acute events overnight shes been npo since midnight denies fevers/chills/nausea/vomiting is asking for probiotics to take during her stay here denies abd pain, no diarrhea/constipation Objective Last 24 Hour Vital Signs Date Time Temp Pulse Resp B/P (MAP) Pulse Ox O2 Delivery O2 Flow Rate FiO2 01/27/18 04:49 98.0 68 18 116/65 (82) 97 01/27/18 04:00 98.0 68 18 116/65 (82) 97 01/27/18 00:00 97.9 69 17 115/56 (75) 97 01/26/18 20:00 98.2 78 18 112/59 (76) 98 01/26/18 15:47 98.8 71 20 127/80 (96) 100 01/26/18 14:35 Room Air 01/26/18 14:30 98.1 68 18 121/67 (85) 100 01/26/18 14:26 98.1 79 18 104/57 100 Room Air 01/26/18 14:20 79 23 104/57 100 Room Air 01/26/18 12:25 98.1 85 18 101/57 97 Room Air 01/26/18 12:25 87 18 Room Air 01/26/18 12:23 98.1 87 18 126/79 96 Room Air Intake and Output 01/26/18 01/27/18 19:00 07:00 Intake Total 820 ml 600 ml Balance 820 ml 600 ml Intake Oral 420 ml IV Total 400 ml 600 ml # Voids 2 2 # Bowel Movements 2 Laboratory Tests 01/26/18 12:35: Urine Color Yellow, Urine Appearance Slightly cloudy, Urine pH 6, Urine Specific [place] 1.020, Urine Protein 3+H, Urine Glucose (UA) Negative, Urine Ketones Negative, Urine Blood 5+H, Urine Nitrite PositiveH, Urine Bilirubin Negative, Urine Urobilinogen Normal, Urine Leukocyte Esterase 1+H, Urine RBC 5- 10H, Urine WBC 2-4, Urine Squamous Epithelial Cells ManyH, Urine Bacteria ModerateH, Urine HCG, Qualitative Negative 01/26/18 12:46: White Blood Count 11.2H, Red Blood Count 4.16L, Hemoglobin 11.6L, Hematocrit 35.7L, Mean Corpuscular Volume 86, Mean Corpuscular Hemoglobin 27.8, Mean Corpuscular Hemoglobin Concent 32.4, Red Cell Distribution Width 13.1, Platelet Count 408, Mean Platelet Volume 5.9L, Neutrophils (%) (Auto) 74.5, Lymphocytes ( %) (Auto) 18.1L, Monocytes (%) (Auto) 5.5, Eosinophils (%) (Auto) 1.1, Basophils (%) (Auto) 0.7, Prothrombin Time 10.0, Prothromb Time International Ratio 0.9, Activated Partial Thromboplast Time 28, Sodium Level 139, Potassium Level 3.7, Chloride Level 104, Carbon Dioxide Level 25, Anion Gap 10, Blood Urea Nitrogen 11, Creatinine 0.9, Estimat Glomerular Filtration Rate > 60, Glucose Level 112H, Calcium Level 8.5, Total Bilirubin 0.3, Aspartate Amino Transf (AST/SGOT) 13L, Alanine Aminotransferase (ALT/SGPT) 16, Alkaline Phosphatase 78, Total Protein 8.3H, Albumin 3.1L, Globulin 5.2, Albumin/ Globulin Ratio 0.6L 01/26/18 15:00: Iron Level 25L, Total Iron Binding Capacity 285, Percent Iron Saturation 9L, Unsaturated Iron Binding 260, Vitamin B12 Level 345, RBC Folate Hemolysate [ Pending], Red Blood Cell Folate [Pending] 01/27/18 04:50: White Blood Count 7.6, Red Blood Count 3.58L, Hemoglobin 10.2L, Hematocrit 31.3L , Mean Corpuscular Volume 87, Mean Corpuscular Hemoglobin 28.6, Mean Corpuscular Hemoglobin Concent 32.7, Red Cell Distribution Width 13.3, Platelet Count 346, Mean Platelet Volume 6.4L, Neutrophils (%) (Auto) 63.4, Lymphocytes ( %) (Auto) 25.5, Monocytes (%) (Auto) 8.0, Eosinophils (%) (Auto) 2.6, Basophils (%) (Auto) 0.5, Sodium Level 139, Potassium Level 3.6, Chloride Level 105, Carbon Dioxide Level 24, Anion Gap 10, Blood Urea Nitrogen 12, Creatinine 0.7, Estimat Glomerular Filtration Rate > 60, Glucose Level 96, Calcium Level 8.0L, Magnesium Level 1.9, Triglycerides Level 107, Cholesterol Level 158, LDL Cholesterol 111H, HDL Cholesterol 38L, Cholesterol/HDL Ratio 4.2 Height (Feet): 5 Height (Inches): 6.00 Weight (Pounds): 302 General Appearance: no apparent distress, alert EENT: PERRL/EOMI, normal ENT inspection, pharynx normal Neck: non-tender, normal alignment, supple, normal inspection Cardiovascular: normal peripheral pulses, normal rate, regular rhythm Respiratory/Chest: chest wall non-tender, lungs clear, normal breath sounds, no respiratory distress, no accessory muscle use Abdomen: normal bowel sounds, non tender, soft, no organomegaly Genitourinary/Rectal: other - B/L groin region mid and post, acitve drainage of serous fluid with renderness and erythema b/l Extremities: normal range of motion, non-tender, normal inspection Neurologic: cath lab manager II-XII grossly normal, alert, oriented x 3 Chente Hunt MD Jan 27, 2018 08:26
[2018-01-27] MEDS: Heparin 5000 units/ml inj SUBQ SCH ×2 (08:28→20:50)
[2018-01-27] MEDS: Lactobacillus-GG tablet ORAL SCH ×2 (08:52→18:07)
[2018-01-27] MEDS: Docusate 100mg cap ORAL SCH ×2 (08:52→18:07)
--- NOTE | 2018-01-27 10:09 | Pre-Procedure Note/Attestation ---
Pre-Procedure Note/Attestation Complete Prior to Procedure Planned Procedure: left Procedure Narrative: Left thigh excision of hidradenitis and flap elevation Attestation I attest that I discussed the nature of the procedure; its benefits; risks and complications; and alternatives (and the risks and benefits of such alternatives ), prior to the procedure, with the patient (or the patient's legal branch service representative). I attest that, if there was a reasonable possibility of needing a blood transfusion, the patient (or the patient's legal branch service representative) was given the [facility] standardized written summary, pursuant to the Jd Stephen Blood Safety Act ([place] Health and Safety Code # 1645, as amended). I attest that I re-evaluated the patient just prior to the surgery and that there has been no change in the patient's H&P, except as documented below: Jm Gutierrez MD Jan 27, 2018 10:08
[2018-01-27] MEDS ORDERED: fentaNYL 100 mcg/2 mL IV ONE (11:32)
[2018-01-27] MEDS ORDERED: Midazolam 2mg/2ml Inj ONE (11:32)
[2018-01-27] MEDS ORDERED: Propofol 200mg/20ml IV ONE (11:33)
[2018-01-27] MEDS ORDERED: Lidocaine 1% MPF 10mg/ml 5ml ONE (11:33)
[2018-01-27] MEDS ORDERED: Rate Change PCA 1 Each MISC PRN (12:15)
[2018-01-27] MEDS ORDERED: PCA Education Pamphlet MISC ONE (12:15)
[2018-01-27] MEDS ORDERED: NeoSporin Gu Irrig 1ml Amp IRRIG ONE (12:17)
[2018-01-27] MEDS ORDERED: Lidocaine 1% 10mg/ml/Epi 0.005mg/ml 30ml vial INJ ONE (12:17)
[2018-01-27] MEDS ORDERED: Bacitracin 50000 Units Vial ONE (12:17)
[2018-01-27] MEDS ORDERED: Succinylcholine 20mg/ml 10ml vial ONE (12:25)
[2018-01-27] MEDS ORDERED: Zemuron 50mg/5ml Inj IV ONE (12:25)
[2018-01-27] MEDS ORDERED: NS Irrig 1000ml ONE (12:30)
[2018-01-27] MEDS ORDERED: Sterile Water Irrig 1000ml IRRIG ONE (12:30)
[2018-01-27] MEDS ORDERED: PCA HYDROmorphone 1mg/ml 30 ML IV PRN (12:46)
[2018-01-27] MEDS ORDERED: DiphenhydrAMINE 50mg/ml Inj IVP PRN ×2 (12:48→13:45)
[2018-01-27] MEDS ORDERED: Zolpidem 5mg tab ORAL PRN (12:48)
[2018-01-27] MEDS ORDERED: Glycopyrrolate 0.2mg/ml 1ml Vial ONE (13:22)
[2018-01-27] MEDS ORDERED: Morphine Sulfate 10mg/ml Inj ONE (13:22)
[2018-01-27] MEDS ORDERED: Neostigmine 1mg/ml 10ml Inj ONE (13:22)
[2018-01-27] MEDS ORDERED: Sodium Chloride 10ml vial INJ ONE (13:25)
[2018-01-27] MEDS ORDERED: LR 1000ml 1,000 ML IVLG SCH (13:38)
--- NOTE | 2018-01-27 13:38 | Anethesia Preoperative Eval ---
Anesthesia Pre-op PMH/ROS General Date of Evaluation: Jan 27, 2018 Time of Evaluation: 12:20 Anesthesiologist: Kamila ASA Score: ASA 3 Mallampati Score Class I : Soft palate, uvula, fauces, pillars visible Class II: Soft palate, uvula, fauces visible Class III: Soft palate, base of uvula visible Class IV: Only hard plate visible Mallampati Classification: Class III Surgeon: Brenda Diagnosis: Recurrent HS Surgical Procedure: Excision of groin HS Anesthesia History: none Family History: no anesthesia problems Allergies: Coded Allergies: Shrimp (Verified Allergy, Unknown, 12/10/15) Patient NPO?: Yes NPO Date: Jan 27, 2018 NPO Time: 0000 Past Medical History Cardiovascular: Denies: HTN, CAD, [place], valve dz, arrhythmia, other Pulmonary: Reports: MELINDA; Denies: asthma, COPD, other Gastrointestinal/Genitourinary: Reports: GERD; Denies: CRI, ESRD, other Neurologic/Psychiatric: Reports: depression/anxiety; Denies: dementia, CVA, TIA, other Endocrine: Reports: DM; Denies: hypothyroidism, steroids, other HEENT: Denies: cataract (L), cataract (R), glaucoma, [place] (L), [place] (R), other Hematology/Immune: Reports: anemia - mild; Denies: DVT, bleeding disorder, other Musculoskeletal/Integumentary: Reports: other - Recurrent HS Other: obesity - morbid obesity PMH Narrative: as above PSxH Narrative: Multiple Sx for HS treatment Anesthesia Pre-op Phys. Exam Physician Exam Last Vital Signs Date Time Temp Pulse Resp B/P (MAP) Pulse Ox O2 Delivery O2 Flow Rate FiO2 01/27/18 09:00 Room Air 01/27/18 08:00 98.0 72 18 106/61 (76) 100 Constitutional: NAD Neurologic: CN 2-12 intact Cardiovascular: RRR, no M/R/G Respiratory: CTA Gastrointestinal: other - obesity Airway Exam Mallampati Score: Class III MO: full Neck: short ROM: limited Teeth: missing Dentures: no upper, no lower Anesthesia Pre-op A/P Labs Hematology Test 01/27/18 04:50 White Blood Count 7.6 K/UL (4.8-10.8) Red Blood Count 3.58 M/UL (4.20-5.40) L Hemoglobin 10.2 G/DL (12.0-16.0) L Hematocrit 31.3 % (37.0-47.0) L Mean Corpuscular Volume 87 FL (80-99) Mean Corpuscular Hemoglobin 28.6 PG (27.0-31.0) Mean Corpuscular Hemoglobin Concent 32.7 G/DL (32.0-36.0) Red Cell Distribution Width 13.3 % (11.6-14.8) Platelet Count 346 K/UL (150-450) Mean Platelet Volume 6.4 FL (6.5-10.1) L Neutrophils (%) (Auto) 63.4 % (45.0-75.0) Lymphocytes (%) (Auto) 25.5 % (20.0-45.0) Monocytes (%) (Auto) 8.0 % (1.0-10.0) Eosinophils (%) (Auto) 2.6 % (0.0-3.0) Basophils (%) (Auto) 0.5 % (0.0-2.0) Chemistry Test 01/26/18 15:00 01/27/18 04:50 Iron Level 25 ug/dL (50-175) L Total Iron Binding Capacity 285 ug/dL (250-450) Percent Iron Saturation 9 % (15-50) L Unsaturated Iron Binding 260 ug/dL (112-346) Vitamin B12 Level 345 PG/ML (193-986) RBC Folate Hemolysate Pending Red Blood Cell Folate Pending Sodium Level 139 MMOL/L (136-145) Potassium Level 3.6 MMOL/L (3.5-5.1) Chloride Level 105 MMOL/L (98-107) Carbon Dioxide Level 24 MMOL/L (21-32) Anion Gap 10 mmol/L (5-15) Blood Urea Nitrogen 12 mg/dL (7-18) Creatinine 0.7 MG/DL (0.55-1.30) Estimat Glomerular Filtration Rate > 60 mL/min (>60) Glucose Level 96 MG/DL (74-106) Calcium Level 8.0 MG/DL (8.5-10.1) L Magnesium Level 1.9 MG/DL (1.8-2.4) Triglycerides Level 107 MG/DL (30-150) Cholesterol Level 158 MG/DL (< 200) LDL Cholesterol 111 mg/dL (<100) H HDL Cholesterol 38 MG/DL (40-60) L Cholesterol/HDL Ratio 4.2 (3.3-4.4) Risk Assessment & Plan Assessment: ASA 3 Plan: GA with ETT Status Change Before Surgery: No Pre-Antibiotics Drug: Ancef 2gr. Given Within 1 Hr of Incision: Yes Time Given: 13:02 Naga Treviño MD Jan 27, 2018 13:38
[2018-01-27] MEDS ORDERED: Ketorolac 30mg Inj IV PRN (13:45)
[2018-01-27] MEDS ORDERED: Midazolam 2mg/2ml Inj IVP PRN (13:45)
[2018-01-27] MEDS ORDERED: Metoclopramide 10mg/2ml Inj IVP PRN (13:45)
[2018-01-27] MEDS ORDERED: Meperidine 50mg/ml Inj(FOR RIGORS ONLY) IV PRN (13:45)
[2018-01-27] MEDS ORDERED: fentaNYL 100 mcg/2 mL IV PRN (13:45)
--- NOTE | 2018-01-27 13:52 | Operative Note - PDOC ---
Operative Note Operative Note Procedure: Excision of left upper thigh HS with flap elevation Post-op Diagnosis: same as pre-op Surgeon: Brenda Resident Medical Officer: Jordy Anesthesia: general Specimen: yes Complications: none Condition: stable Estimated Blood Loss: minimal Drains: none Implant(s) used?: No Jm Gutierrez MD Jan 27, 2018 13:52
--- NOTE | 2018-01-27 14:19 | Immediate Post-Op Evaluation ---
Immediate Post-Op Evalulation Immediate Post-Op Evalulation Procedure: Excixion of L groin hydradenitis Date of Evaluation: Jan 27, 2018 Time of Evaluation: 14:18 IV Fluids: 1000 Blood Products: none Estimated Blood Loss: 100 Urinary Output: 200 Blood Pressure Systolic: 133 Blood Pressure Diastolic: 72 Pulse Rate: 64 Respiratory Rate: 20 O2 Sat by Pulse Oximetry: 99 Temperature (Fahrenheit): 97.6 Pain Score (1-10): 2 Nausea: No Vomiting: No Complications none Patient Status: reacts, patent, extubated, none Hydration Status: adequate Naga Treviño MD Jan 27, 2018 14:19
--- NOTE | 2018-01-27 17:01 | Cardiology Report ---
APPROVED REPORT EKG Measurement Heart [id number] Normal sinus rhythm with sinus arrhythmia Normal ECG
[2018-01-27] MEDS: PCA shift volume MISC SCH (19:16)
--- NOTE | 2018-01-27 20:15 | Consultation ---
DATE OF CONSULTATION: 01/27/2018 HISTORY OF PRESENT ILLNESS: This is a 47-year-old female, who was admitted by the medical team for an acute abscess associated with hidradenitis in her left thigh. She presented with leukocytosis and pain and drainage in the area. The medical team admitted the patient and started on IV antibiotics. Upon my evaluation, I felt that she was an appropriate candidate for further treatment surgically. PAST MEDICAL HISTORY: Significant for hidradenitis and morbid obesity. PAST SURGICAL HISTORY: Significant for multiple areas of reconstructions for hidradenitis. MEDICATIONS: Include previous use of antibiotics. ALLERGIES: None. PHYSICAL EXAMINATION: GENERAL: The patient is alert and oriented x3. HEART: Regular rate and rhythm. ABDOMEN: Soft, nontender, and nondistended. EXTREMITIES: Examination of the extremities reveals a large abscess in the upper inner left thigh region with drainage extending down to the inner buttock region. She is quite tender in the area and there is obvious drainage as well. ASSESSMENT AND PLAN: This is a 47-year-old female with an advanced history of hidradenitis status post previous excisions and reconstructions, who presents now with a new area of disease in the left upper thigh. She will require a radical excision with flap elevation and delayed closure of the wound. Once again, the delay is for allowing the infection to clear before providing definitive soft tissue coverage. Jm Gutierrez M.D. DR: SHANTI JOB#: [id number] CC:
[2018-01-27] MEDS: ceFAZolin sod 1 GM in D5W 55 ML IVPB SCH (20:47)
--- NOTE | 2018-01-27 21:30 | Operative Note - Dictated ---
DATE OF OPERATION: 01/27/2018 PREOPERATIVE DIAGNOSIS: Left upper thigh hidradenitis, stage III. POSTOPERATIVE DIAGNOSIS: Left upper thigh hidradenitis, stage III. PROCEDURES: 1. Radical excision of left upper thigh hidradenitis leaving defect of 20 x 10 cm. 2. Elevation of a left medial thigh flap for closure of left thigh wound. 3. Elevation of a left medial groin flap for closure of left thigh wound. SURGEON: Jm Gutierrez M.D. FITTINGS FINISHER: Delia Spence M.D. ANESTHESIA: General. COMPLICATIONS: None. DRAINS: None. ESTIMATED BLOOD LOSS: Approximately 50 mL. DISPOSITION: Stable to recovery room. INDICATIONS FOR SURGERY: This is a 47-year-old female, who is well known to me, who has previously undergone multiple areas of excision for hidradenitis with reconstruction who presented to the emergency room with active pain and drainage and leukocytosis with an area of tenderness in her left upper thigh. On examination, she had a large area in the left inner thigh where there appeared to be a recurrence of her disease and it was felt that she would be an appropriate candidate for staged treatment with excision followed by flap closure of her wounds. She understood the risks and benefits of surgery and agreed to proceed. DETAILS OF THE OPERATION: The patient was brought to the operating room and laid in the lithotomy position on the operating room table. Her perineum and thighs were prepped and draped in a sterile and usual fashion. We first began by marking out the area using a marking pen of the disease. With this done, a #10 blade was then used to make the incision around the area. The dissection was carried down with electrocautery. We came across a large internal pocket of hidradenitis, which was fistulizing to the skin. This had to be carried all the way down to the level of the adductor fascia just above the gracilis muscle. Once this was fully identified and skeletonized, we were able to remove the specimen containing hidradenitis en bloc including the area that was tracking deep. This left a very large defect of about 20 x 10 cm, which was not amenable to primary closure. As such, flaps had to be elevated to allow for a tension-free repair. We first began by elevating a medial thigh flap based off of perforators. The superficial femoral artery with proximal and distal incisions made to fully mobilize the skin flap. This flap measured approximately 5 x 18 cm and allowed for partial closure of the wound. In a similar way, a medial groin flap based off of perforators the pudendal artery was elevated with proximal and distal. The incision was made to fully mobilize the flap. At this time measured approximately 18 x 3 cm and 2 of them when brought together in the midline allowed for a full tension-free coverage of the wound. However given the presence of pus and infection within this wound, it was felt that it was not appropriate to perform definitive closure of the wound at this time. Thus, pulse lavage irrigation was performed and hemostasis was achieved and the wound was packed with a plan of bringing the patient back within 48 to 72 hours to perform definitive flap insert and closure of the wounds. The patient tolerated the procedure well. Dressings were applied. There was no complications. Jm Gutierrez M.D. DR: MUKESH JOB#: [id number] CC:
[2018-01-28] VITALS: BP 98/67
[2018-01-28 04:00] VITALS: BP 101/55
[2018-01-28] MEDS: ceFAZolin sod 1 GM in D5W 55 ML IVPB SCH ×3 (04:07→20:07)
[2018-01-28] MEDS ORDERED: Acetaminophen (Non formulary) 100 ML IV ONE (07:00)
[2018-01-28] MEDS: PCA shift volume MISC SCH ×2 (07:27→19:18)
[2018-01-28 07:35] LABS: BASOPHILS % (AUTO) 0.7 % (0.0-2.0); EOSINOPHILS % (AUTO) 2.1 % (0.0-3.0); HEMATOCRIT 28.8 % (37.0-47.0); HEMOGLOBIN 9.6 G/DL (12.0-16.0); MEAN CORPUSCULAR VOLUME 87 FL (80-99); MONOCYTES % (AUTO) 5.9 % (1.0-10.0); NEUTROPHILS % (AUTO) 71.4 % (45.0-75.0); PLATELET COUNT 309 K/UL (150-450); RED BLOOD COUNT 3.32 M/UL (4.20-5.40); RED CELL DISTRIBUTION WIDTH 13.1 % (11.6-14.8); WHITE BLOOD COUNT 8.3 K/UL (4.8-10.8)
[2018-01-28 07:56] LABS: ANION GAP 7 mmol/L (5-15); BLOOD UREA NITROGEN 7 mg/dL (7-18); CALCIUM 7.8 MG/DL (8.5-10.1); CARBON DIOXIDE 25 MMOL/L (21-32); CHLORIDE 106 MMOL/L (98-107); CREATININE 0.7 MG/DL (0.55-1.30); POTASSIUM 3.5 MMOL/L (3.5-5.1); SODIUM 138 MMOL/L (136-145)
[2018-01-28 08:00] VITALS: BP 94/76
[2018-01-28] MEDS: Lactobacillus-GG tablet ORAL SCH ×2 (08:39→17:01)
[2018-01-28] MEDS: Docusate 100mg cap ORAL SCH ×2 (08:39→17:01)
[2018-01-28] MEDS: Heparin 5000 units/ml inj SUBQ SCH ×2 (08:40→20:11)
--- NOTE | 2018-01-28 10:03 | General Progress Note ---
Progress Note Progress Note Pt seen and examined. POD # 1 and doing well. Dressings are CDI and plan for OR tomorrow for wound closure. NPO after MN and consent. Jm Gutierrez M.D. Jm Gutierrez MD Jan 28, 2018 10:03
[2018-01-28 11:55] VITALS: BP 144/77
--- NOTE | 2018-01-28 12:25 | General Progress Note ---
Assessment/Plan Problem List: (1) Abscess or cellulitis of groin SNOMED: 397134577 (2) Hidradenitis suppurativa ICD Codes: L73.2 - Hidradenitis suppurativa SNOMED: 20302083 (3) Anemia ICD Codes: D64.9 - Anemia, unspecified SNOMED: 115458581 Qualifiers: Qualified Codes: D64.9 - Anemia, unspecified Assessment/Plan Hidradenitis suppurative with Groin Abscess - POD1 sp radical excision per Dr. Gutierrez - doing well, planned for closure tomorrow - cont fluids - has been npo since midnight - IV ABX, lvq, states she believes she had abnormal reaction to penicillins in the past - wound care - pain control - mobilization - bowel regimen Anemia - patient currently menstruating - iron panel - transfuse if Hgb < 7 - continue to monitor I have spent 70 minutes regarding patient care and counseling and 35 minutes of face to face time with the patient. Thank you Please feel free to contact me at any time Chente Hunt MD [facility] Subjective Date patient seen: Jan 28, 2018 Time patient seen: 12:25 Constitutional: Reports: no symptoms HEENT: Reports: no symptoms Cardiovascular: Reports: no symptoms Respiratory: Reports: no symptoms Gastrointestinal/Abdominal: Reports: no symptoms Genitourinary: Reports: no symptoms Neurologic/Psychiatric: Reports: no symptoms Endocrine: Reports: no symptoms Hematologic/Lymphatic: Reports: no symptoms Allergies: Coded Allergies: Shrimp (Verified Allergy, Unknown, 12/10/15) All Systems: reviewed and negative except above Subjective denies any complaints pod1 today doing well denies any fevers/chills pain well controlled Objective Last 24 Hour Vital Signs Date Time Temp Pulse Resp B/P (MAP) Pulse Ox O2 Delivery O2 Flow Rate FiO2 01/28/18 12:00 18 01/28/18 11:55 97.9 80 20 144/77 (99) 99 01/28/18 08:04 Room Air 01/28/18 08:00 18 01/28/18 08:00 98.7 90 19 94/76 (82) 99 01/28/18 04:00 18 01/28/18 04:00 98.7 67 18 101/55 (70) 99 01/28/18 00:00 98.4 74 18 98/67 (77) 97 01/28/18 00:00 18 01/27/18 21:00 Room Air 01/27/18 20:00 19 01/27/18 20:00 98.7 68 19 110/64 (79) 98 01/27/18 18:00 97.8 75 18 122/86 (98) 98 01/27/18 17:30 98.0 69 18 105/59 (74) 99 01/27/18 17:25 16 01/27/18 17:00 98.0 67 18 114/76 (89) 97 01/27/18 16:55 16 01/27/18 16:45 98.5 68 18 110/70 (83) 98 01/27/18 16:30 98.0 69 18 109/64 (79) 97 01/27/18 16:25 16 01/27/18 16:15 97.9 67 18 102/60 (74) 100 01/27/18 16:10 16 01/27/18 16:00 97.9 64 19 100/56 (71) 100 01/27/18 15:55 16 01/27/18 15:40 16 01/27/18 15:15 97.5 60 15 119/64 96 Room Air 01/27/18 15:10 16 01/27/18 15:00 61 17 116/65 98 Room Air 01/27/18 14:55 16 01/27/18 14:45 53 18 119/64 100 Room Air 01/27/18 14:40 16 01/27/18 14:30 55 15 113/67 100 Room Air 01/27/18 14:20 64 20 121/62 100 Room Air 01/27/18 14:19 64 20 99 01/27/18 14:00 62 17 120/70 100 Room Air 01/27/18 13:20 68 18 128/77 100 Simple Mask 6 01/27/18 13:10 97.3 68 20 133/76 100 Simple Mask 6 Intake and Output 01/27/18 01/28/18 19:00 07:00 Intake Total 100 ml 1000 ml Output Total 200 ml 800 ml Balance -100 ml 200 ml IV Total 100 ml 1000 ml Output Urine Total 200 ml 800 ml # Voids 2 Laboratory Tests 01/28/18 07:10: White Blood Count 8.3, Red Blood Count 3.32L, Hemoglobin 9.6L, Hematocrit 28.8L , Mean Corpuscular Volume 87, Mean Corpuscular Hemoglobin 28.9, Mean Corpuscular Hemoglobin Concent 33.3, Red Cell Distribution Width 13.1, Platelet Count 309, Mean Platelet Volume 6.4L, Neutrophils (%) (Auto) 71.4, Lymphocytes ( %) (Auto) 20.0, Monocytes (%) (Auto) 5.9, Eosinophils (%) (Auto) 2.1, Basophils (%) (Auto) 0.7, Sodium Level 138, Potassium Level 3.5, Chloride Level 106, Carbon Dioxide Level 25, Anion Gap 7, Blood Urea Nitrogen 7, Creatinine 0.7, Estimat Glomerular Filtration Rate > 60, Glucose Level 91, Calcium Level 7.8L Height (Feet): 5 Height (Inches): 6.00 Weight (Pounds): 301 General Appearance: WD/WN, no apparent distress, alert EENT: PERRL/EOMI, normal ENT inspection, TMs normal Neck: non-tender, normal alignment, supple Cardiovascular: normal peripheral pulses, normal rate, regular rhythm Respiratory/Chest: chest wall non-tender, lungs clear, normal breath sounds, no respiratory distress, no accessory muscle use Abdomen: normal bowel sounds, non tender, soft, no organomegaly, no mass Extremities: non-tender 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
--- NOTE | 2018-01-28 12:31 | 48 Hour Post Anesthesia Eval ---
Post Anesthesia Evaluation Procedure: Excixion of L groin hydradenitis Date of Evaluation: Jan 28, 2018 Time of Evaluation: 12:30 Blood Pressure Systolic: 116 0: 74 Pulse Rate: 68 Respiratory Rate: 20 Temperature (Fahrenheit): 97.2 O2 Sat by Pulse Oximetry: 98 Airway: patent Nausea: No Vomiting: No Pain Intensity: 3 Hydration Status: adequate Cardiopulmonary Status: stable Mental Status/LOC: patient returned to baseline Follow-up Care/Observations: n/a Post-Anesthesia Complications: none Follow-up care needed: N/A Naga Treviño MD Jan 28, 2018 12:31
[2018-01-28 15:51] VITALS: BP 105/64
[2018-01-28] MEDS ORDERED: Tubing IV Secondary IV ONE (16:06)
[2018-01-28 20:00] VITALS: BP 107/64
[2018-01-29] VITALS (12 sets, daily range): BP systolic 101–148; BP diastolic 56–97
[2018-01-29] MEDS: ceFAZolin sod 1 GM in D5W 55 ML IVPB SCH ×3 (04:00→20:35)
[2018-01-29 06:32] LABS: BASOPHILS % (AUTO) 0.3 % (0.0-2.0); HEMATOCRIT 27.5 % (37.0-47.0); HEMOGLOBIN 9.3 G/DL (12.0-16.0); LYMPHOCYTES % (AUTO) 21.7 % (20.0-45.0); MEAN CORPUSCULAR VOLUME 87 FL (80-99); MONOCYTES % (AUTO) 6.3 % (1.0-10.0); NEUTROPHILS % (AUTO) 69.7 % (45.0-75.0); PLATELET COUNT 297 K/UL (150-450); RED BLOOD COUNT 3.17 M/UL (4.20-5.40); RED CELL DISTRIBUTION WIDTH 13.1 % (11.6-14.8); WHITE BLOOD COUNT 8.9 K/UL (4.8-10.8)
[2018-01-29 06:39] LABS: ANION GAP 5 mmol/L (5-15); BLOOD UREA NITROGEN 6 mg/dL (7-18); CALCIUM 7.7 MG/DL (8.5-10.1); CARBON DIOXIDE 27 MMOL/L (21-32); CHLORIDE 107 MMOL/L (98-107); CREATININE 0.7 MG/DL (0.55-1.30); POTASSIUM 3.5 MMOL/L (3.5-5.1); SODIUM 139 MMOL/L (136-145)
[2018-01-29] MEDS: PCA shift volume MISC SCH ×2 (07:23→19:00)
[2018-01-29] MEDS: Docusate 100mg cap ORAL SCH ×2 (08:30→17:14)
[2018-01-29] MEDS: Lactobacillus-GG tablet ORAL SCH ×2 (08:30→17:14)
[2018-01-29] MEDS: Heparin 5000 units/ml inj SUBQ SCH ×2 (08:34→20:37)
--- NOTE | 2018-01-29 08:37 | General Progress Note ---
Assessment/Plan Problem List: (1) Abscess or cellulitis of groin SNOMED: 744909053 (2) Hidradenitis suppurativa ICD Codes: L73.2 - Hidradenitis suppurativa SNOMED: 23920247 (3) Anemia ICD Codes: D64.9 - Anemia, unspecified SNOMED: 652360973 Qualifiers: Qualified Codes: D64.9 - Anemia, unspecified Assessment/Plan Hidradenitis suppurative with Groin Abscess - POD2 sp radical excision per Dr. Gutierrez - OR today - cont abx - pain control - doing well - wound care - IV ABX, lvq, states she believes she had abnormal reaction to penicillins in the past - mobilization - bowel regimen Anemia - patient currently menstruating - iron panel - transfuse if Hgb < 7 - continue to monitor I have spent over 45 minutes regarding patient care and counseling and 35 minutes of face to face time with the patient. Thank you Please feel free to contact me at any time Chente Hunt MD [facility] Subjective Allergies: Coded Allergies: Shrimp (Verified Allergy, Unknown, 12/10/15) Subjective denies any complaints pod2 plan for OR today no acute events overnight denies any n/v/constipation or diarrhea 12 point ros negative except for the above Objective Last 24 Hour Vital Signs Date Time Temp Pulse Resp B/P (MAP) Pulse Ox O2 Delivery O2 Flow Rate FiO2 01/29/18 04:00 20 01/29/18 04:00 98.6 70 20 101/56 (71) 100 01/29/18 00:00 20 01/29/18 00:00 98.9 59 20 114/62 (79) 99 01/28/18 21:00 Room Air 01/28/18 21:00 20 01/28/18 20:00 99.0 66 20 107/64 (78) 97 01/28/18 16:01 21 01/28/18 15:51 98.1 73 21 105/64 (78) 97 01/28/18 12:31 68 20 98 01/28/18 12:00 18 01/28/18 11:55 97.9 80 20 144/77 (99) 99 Intake and Output 01/28/18 01/29/18 19:00 07:00 Intake Total 2285 ml 910 ml Output Total 1500 ml 2650 ml Balance 785 ml -1740 ml Intake Oral 730 ml IV Total 1555 ml 910 ml Output Urine Total 1500 ml 2650 ml Laboratory Tests 01/29/18 05:25: White Blood Count 8.9, Red Blood Count 3.17L, Hemoglobin 9.3L, Hematocrit 27.5L , Mean Corpuscular Volume 87, Mean Corpuscular Hemoglobin 29.2, Mean Corpuscular Hemoglobin Concent 33.6, Red Cell Distribution Width 13.1, Platelet Count 297, Mean Platelet Volume 6.8, Neutrophils (%) (Auto) 69.7, Lymphocytes (% ) (Auto) 21.7, Monocytes (%) (Auto) 6.3, Eosinophils (%) (Auto) 2.0, Basophils ( %) (Auto) 0.3, Sodium Level 139, Potassium Level 3.5, Chloride Level 107, Carbon Dioxide Level 27, Anion Gap 5, Blood Urea Nitrogen 6L, Creatinine 0.7, Estimat Glomerular Filtration Rate > 60, Glucose Level 99, Calcium Level 7.7L Height (Feet): 5 Height (Inches): 6.00 Weight (Pounds): 301 General Appearance: WD/WN, no apparent distress, alert EENT: PERRL/EOMI, normal ENT inspection, TMs normal, pharynx normal Neck: non-tender, normal alignment, supple Cardiovascular: normal peripheral pulses, normal rate, regular rhythm Respiratory/Chest: chest wall non-tender, lungs clear, normal breath sounds, no respiratory distress, no accessory muscle use Extremities: normal range of motion, non-tender 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
--- NOTE | 2018-01-29 12:58 | Pre-Procedure Note/Attestation ---
Pre-Procedure Note/Attestation Complete Prior to Procedure Planned Procedure: left Procedure Narrative: Left thigh wound flap closure Attestation I attest that I discussed the nature of the procedure; its benefits; risks and complications; and alternatives (and the risks and benefits of such alternatives ), prior to the procedure, with the patient (or the patient's legal retail wireless sales representative). I attest that, if there was a reasonable possibility of needing a blood transfusion, the patient (or the patient's legal retail wireless sales representative) was given the [facility] standardized written summary, pursuant to the Jd Stephen Blood Safety Act ([place] Health and Safety Code # 1645, as amended). I attest that I re-evaluated the patient just prior to the surgery and that there has been no change in the patient's H&P, except as documented below: Jm Gutierrez MD Jan 29, 2018 12:58
[2018-01-29] MEDS ORDERED: Sterile Water Irrig 1000ml IRRIG ONE (13:00)
[2018-01-29] MEDS ORDERED: NS Irrig 1000ml ONE (13:00)
[2018-01-29] MEDS ORDERED: Propofol 200mg/20ml IV ONE (13:00)
[2018-01-29] MEDS ORDERED: LR 1000ml ONE (13:00)
[2018-01-29] MEDS ORDERED: LR 1000ml 1,000 ML IVLG SCH (13:01)
[2018-01-29] MEDS ORDERED: Sodium Chloride 10ml vial INJ ONE (13:02)
[2018-01-29] MEDS ORDERED: Lidocaine 1% MPF 10mg/ml 5ml ONE (13:02)
[2018-01-29] MEDS ORDERED: fentaNYL 100 mcg/2 mL IV ONE (13:09)
[2018-01-29] MEDS ORDERED: Atropine Sulfate 0.4mg/ml inj IVP PRN ×2 (13:15→19:00)
[2018-01-29] MEDS ORDERED: Acetaminophen (Non formulary) 100 ML IV ONE (13:15)
[2018-01-29] MEDS ORDERED: Hydromorphone 0.5mg/0.5ml inj IVP PRN ×2 (13:15→19:00)
[2018-01-29] MEDS ORDERED: Midazolam 2mg/2ml Inj IVP PRN ×2 (13:15→19:00)
[2018-01-29] MEDS ORDERED: LORazepam Inj 2mg/ml 1ml IV PRN ×2 (13:15→19:00)
[2018-01-29] MEDS ORDERED: Norco 5mg/325mg tab ORAL PRN ×2 (13:15→19:15)
[2018-01-29] MEDS ORDERED: oxyCODONE HCL/Acetaminophen 5/325mg ORAL PRN ×2 (13:15→19:15)
[2018-01-29] MEDS ORDERED: Meperidine 50mg/ml Inj(FOR RIGORS ONLY) IVP PRN ×2 (13:15→19:00)
[2018-01-29] MEDS ORDERED: fentaNYL 100 mcg/2 mL IV PRN ×2 (13:15→19:00)
[2018-01-29] MEDS ORDERED: HYDROcodone/Acetamin 7.5/325 tab ORAL PRN ×2 (13:15→19:15)
[2018-01-29] MEDS ORDERED: Metoclopramide 10mg/2ml Inj IVP PRN ×2 (13:15→19:15)
[2018-01-29] MEDS ORDERED: DiphenhydrAMINE 50mg/ml Inj IVP PRN ×3 (13:15→19:00)
[2018-01-29] MEDS ORDERED: NeoSporin Gu Irrig 1ml Amp IRRIG ONE (13:28)
[2018-01-29] MEDS ORDERED: Bacitracin 50000 Units Vial ONE (13:28)
--- NOTE | 2018-01-29 13:41 | Immediate Post-Op Evaluation ---
Immediate Post-Op Evalulation Immediate Post-Op Evalulation Procedure: Excixion of L groin hydradenitis Date of Evaluation: Jan 29, 2018 Time of Evaluation: 14:40 IV Fluids: 700 LR Blood Products: 0 Estimated Blood Loss: 25 Urinary Output: 300 Blood Pressure Systolic: 148 Blood Pressure Diastolic: 97 Pulse Rate: 92 Respiratory Rate: 16 O2 Sat by Pulse Oximetry: 100 Temperature (Fahrenheit): 97.6 Pain Score (1-10): 2 Nausea: No Vomiting: No Complications 0 Patient Status: awake, reacts, patent, extubated, none Hydration Status: adequate Dru Grams Ancef IV Given Within 1 Hr of Incision: Yes Time Given: 13:31 Kamlesh Castaneda MD Jan 29, 2018 13:41
[2018-01-29] MEDS ORDERED: Glycopyrrolate 0.2mg/ml 1ml Vial ONE (14:08)
[2018-01-29] MEDS ORDERED: Naloxone 0.4mg/ml Inj ONE (14:10)
--- NOTE | 2018-01-29 14:16 | Operative Note - PDOC ---
Operative Note Operative Note Procedure: Closure of left thigh wound Post-op Diagnosis: same as pre-op Surgeon: Brenda Equine Intern: Jordy Anesthesia: general Specimen: yes Complications: none Condition: stable Estimated Blood Loss: minimal Drains: SHELLIE Implant(s) used?: No Jm Gutierrez MD Jan 29, 2018 14:16
[2018-01-29] MEDS ORDERED: PCA Education Pamphlet MISC SCH (14:30)
[2018-01-29] MEDS ORDERED: PCA HYDROmorphone 1mg/ml 30 ML IV PRN (14:30)
[2018-01-29] MEDS ORDERED: Rate Change PCA 1 Each MISC PRN (14:30)
[2018-01-29] MEDS ORDERED: Naloxone 0.4mg/ml Inj IV PRN (19:00)
[2018-01-29] MEDS ORDERED: PCA shift volume MISC SCH (19:00)
[2018-01-29] MEDS ORDERED: Zolpidem 5mg tab ORAL PRN (19:00)
--- NOTE | 2018-01-29 19:45 | General Progress Note ---
Assessment/Plan Problem List: (1) Groin abscess ICD Codes: L02.214 - Cutaneous abscess of groin SNOMED: 66946615 (2) Hidradenitis suppurativa ICD Codes: L73.2 - Hidradenitis suppurativa SNOMED: 01226334 (3) Anemia ICD Codes: D64.9 - Anemia, unspecified SNOMED: 996088421 Qualifiers: Qualified Codes: D64.9 - Anemia, unspecified Assessment/Plan Called to bedside for asymptomatic bradycardia post-op with lower HR of 43. Patient is asymptomatic with normal blood pressure. Dr. Gutierrez order cxr. Ekg was reviewed and shows sinus rhythm with no heart blocks. Plan is to monitor patient on tele. I have ordered electrolytes and will replace if needed. Keep K/ = 4 , mag>/= 2 phos >/= 3. and check echo. Hidradenitis suppurative with Groin Abscess - consult Dr. Gutierrez - IVF - IV ABX - wound care - pain control - mobilization - bowel regimen - baseline EKG reviewed with NSR, no ST or T wave changes Anemia - patient currently menstruating - iron panel - transfuse if Hgb < 70 - continue to monitor If patient is required to have surgery, based on the patient's medical history, and other available ancillary data, the patient is a LOW risk for an INTERMEDIATE risk procedure. Per the most recent ACC/AHA guidelines, the patient does not need any further cardiopulmonary testing prior to the procedure and there do not appear to be any clear medical contraindications to proceeding with the proposed procedure. METS>4 I have spent 70 minutes regarding patient care and counseling and 35 minutes of face to face time with the patient. Subjective Date patient seen: Jan 29, 2018 Time patient seen: 19:30 Allergies: Coded Allergies: Shrimp (Verified Allergy, Unknown, 12/10/15) Subjective patient denies chest pain, sob, heart palpitations, dizziness. She is fatigue after coming back from surgery. Objective Last 24 Hour Vital Signs Date Time Temp Pulse Resp B/P (MAP) Pulse Ox O2 Delivery O2 Flow Rate FiO2 01/29/18 16:00 16 01/29/18 15:28 98.0 54 16 123/69 100 Nasal Cannula 3 01/29/18 15:15 54 16 129/77 100 Nasal Cannula 3 01/29/18 15:00 60 16 108/66 100 Nasal Cannula 3 01/29/18 14:53 79 16 129/83 100 Nasal Cannula 3 01/29/18 14:40 70 16 119/69 100 Nasal Cannula 3 01/29/18 14:35 86 16 145/95 100 Simple Mask 8 01/29/18 14:30 92 16 100 01/29/18 14:29 97.6 97 16 148/97 100 Simple Mask 8 01/29/18 12:00 98.4 96 21 116/66 (83) 97 01/29/18 12:00 20 01/29/18 09:00 Room Air 01/29/18 08:00 20 01/29/18 08:00 98.6 105 19 101/65 (77) 93 01/29/18 04:00 20 01/29/18 04:00 98.6 70 20 101/56 (71) 100 01/29/18 00:00 20 01/29/18 00:00 98.9 59 20 114/62 (79) 99 01/28/18 21:00 Room Air 01/28/18 21:00 20 01/28/18 20:00 99.0 66 20 107/64 (78) 97 Intake and Output 01/28/18 01/29/18 19:00 07:00 Intake Total 2285 ml 1010 ml Output Total 1500 ml 2650 ml Balance 785 ml -1640 ml Intake Oral 730 ml IV Total 1555 ml 1010 ml Output Urine Total 1500 ml 2650 ml Laboratory Tests 01/29/18 05:25: White Blood Count 8.9, Red Blood Count 3.17L, Hemoglobin 9.3L, Hematocrit 27.5L , Mean Corpuscular Volume 87, Mean Corpuscular Hemoglobin 29.2, Mean Corpuscular Hemoglobin Concent 33.6, Red Cell Distribution Width 13.1, Platelet Count 297, Mean Platelet Volume 6.8, Neutrophils (%) (Auto) 69.7, Lymphocytes (% ) (Auto) 21.7, Monocytes (%) (Auto) 6.3, Eosinophils (%) (Auto) 2.0, Basophils ( %) (Auto) 0.3, Sodium Level 139, Potassium Level 3.5, Chloride Level 107, Carbon Dioxide Level 27, Anion Gap 5, Blood Urea Nitrogen 6L, Creatinine 0.7, Estimat Glomerular Filtration Rate > 60, Glucose Level 99, Calcium Level 7.7L Height (Feet): 5 Height (Inches): 5.00 Weight (Pounds): 301 General Appearance: WD/WN, no apparent distress, other - obese, fatigue, post- op EENT: PERRL/EOMI, normal ENT inspection, TMs normal Neck: non-tender, normal alignment, supple Cardiovascular: normal peripheral pulses, normal rate, regular rhythm, no gallop/murmur, no JVD Respiratory/Chest: chest wall non-tender, lungs clear, normal breath sounds, no respiratory distress Abdomen: normal bowel sounds, non tender, soft, no mass, abnormal bowel sounds Extremities: normal range of motion, non-tender Skin: normal pigmentation, warm/dry Jen Gonzalez DO Jan 29, 2018 19:45
--- NOTE | 2018-01-29 19:50 | Diagnostic Imaging Report ---
EXAM: XR Chest, 1 View CLINICAL HISTORY: SOB TECHNIQUE: Frontal view of the chest. COMPARISON: No relevant prior studies available. FINDINGS: Lungs: Unremarkable. No consolidation. Pleural space: Unremarkable. No pneumothorax. Heart: Unremarkable. No cardiomegaly. Mediastinum: Unremarkable. Bones/joints: Unremarkable. IMPRESSION: Normal chest x-ray.
[2018-01-29 20:02] LABS: PHOSPHORUS 2.9 MG/DL (2.5-4.9)
[2018-01-29] MEDS ORDERED: Milk of Magnesia 30ml Ud ORAL PRN (21:00)
[2018-01-29] MEDS ORDERED: Heparin 5000 units/ml inj SUBQ SCH (21:00)
--- NOTE | 2018-01-29 21:15 | Operative Note - Dictated ---
DATE OF OPERATION: 01/29/2018 PREOPERATIVE DIAGNOSIS: Open left thigh wound measuring 20 x 10 cm. POSTOPERATIVE DIAGNOSIS: Open left thigh wound measuring 20 x 10 cm. PROCEDURES: 1. Preparation of left open thigh wound for flap closure. 2. Adjacent tissue transfer closure of a left thigh wound measuring 20 x 10 cm by insetting of previously raised thigh flaps. SURGEON: Jm Gutierrez M.D. RN INTERNATIONAL: Delia Spence M.D. ANESTHESIA: General. COMPLICATIONS: None. DRAINS: Included a size 15 SHELLIE. DISPOSITION: Stable to the recovery room. INDICATIONS FOR SURGERY: This is a 47-year-old female, who is now 48 hours status post radical excision of hidradenitis of the left thigh with flap elevation, who presents now two days following excision for definitive closure of her wounds. She has been undergoing local wound care with IV antibiotics and is aware of the risks and benefits of surgery and agrees to proceed. DETAILS OF THE OPERATION: The patient was brought to the operating room and laid in the lithotomy position on the operating table. Her left thigh and perineal region were prepped and draped in a sterile and usual fashion. We first began by debriding some of the nonviable tissues in the wound bed and especially at the skin edges, which appeared to be marginally viable. These were all debrided using a scalpel and then electrocautery was used to achieve hemostasis. The previously raised thigh flaps and groin flaps were then manipulated to allow for adjacent tissue transfer closure of the wounds by releasing the soft tissue attachments of each flap. We were able to bring the skin flaps together without any tension using 0 and 2-0 Vicryl sutures for the deep layer and a several interrupted 2-0 Prolene were used to close the skin along with dre. The dimensions of the wound again with 20 x 10 cm. The flap that had been previously elevated where the medial thigh flap that measured approximately 20 x 5 cm and the medial groin flap that measured approximately 18 x 4 cm. There was no tension at the end of the procedure and closure of the wound. A SHELLIE drain was secured in place using a 3-0 nylon. The patient tolerated the procedure well. There were no complications. Jm Gutierrez M.D. DR: RAND JOB#: [id number] CC:
[2018-01-30] VITALS: BP 117/64
[2018-01-30 04:00] VITALS: BP 107/60
[2018-01-30] MEDS: ceFAZolin sod 1 GM in D5W 55 ML IVPB SCH ×3 (05:04→20:48)
[2018-01-30] MEDS: PCA shift volume MISC SCH ×2 (07:00→19:00)
[2018-01-30 08:00] VITALS: BP 113/68
--- NOTE | 2018-01-30 08:27 | General Progress Note ---
Assessment/Plan Problem List: (1) Abscess or cellulitis of groin SNOMED: 734741837 (2) Hidradenitis suppurativa ICD Codes: L73.2 - Hidradenitis suppurativa SNOMED: 38278599 (3) Anemia ICD Codes: D64.9 - Anemia, unspecified SNOMED: 401280590 Qualifiers: Qualified Codes: D64.9 - Anemia, unspecified (4) Sinus bradycardia ICD Codes: R00.1 - Bradycardia, unspecified SNOMED: 28266064 (5) Groin abscess ICD Codes: L02.214 - Cutaneous abscess of groin SNOMED: 07234301 Assessment/Plan Hidradenitis suppurative with Groin Abscess -sp flap closure per Dr. Gutierrez - had sinus amina after procedure, amina when sleeps however HR improved when awake. likely due to anesthesia/vagal rflx... remained asymptomatic - cont abx - pain control - doing well - wound care - IV ABX, lvq, states she believes she had abnormal reaction to penicillins in the past - mobilization - bowel regimen Sinus Bradycardia - after procedure - likely due to anesthesia/ vagal rflx. HR would dip to 40s when sleeping and increase back up to 80-90s when awake. - HR currently improved at 89. - remains asymptomatic - keep on tele for close monitoring - keep K > 4 and Mg>2 Anemia - patient currently menstruating - iron panel - transfuse if Hgb < 7 - continue to monitor I have spent over 45 minutes regarding patient care and counseling and 35 minutes of face to face time with the patient. Thank you Please feel free to contact me at any time Chente Hunt MD [facility] Subjective Allergies: Coded Allergies: Shrimp (Verified Allergy, Unknown, 12/10/15) Subjective s/p wound closure has bradycardia postop remained sinus would dip to 40s when sleeping but HR would increase to 80-90s when awake Dr. Gonzalez had come to eval patient overnight, patient remained asymptomatic patient doing well she denies any complaints 12 point ros negative except for the above Objective Last 24 Hour Vital Signs Date Time Temp Pulse Resp B/P (MAP) Pulse Ox O2 Delivery O2 Flow Rate FiO2 01/30/18 04:00 16 01/30/18 04:00 98.7 77 18 107/60 (76) 95 11/17/18 00:00 97.9 64 16 117/64 (81) 96 01/30/18 00:00 16 01/30/18 00:00 61 01/29/18 21:00 Room Air 01/29/18 20:00 39 01/29/18 20:00 98.4 52 18 108/69 (82) 97 01/29/18 19:00 51 01/29/18 16:00 16 01/29/18 15:28 98.0 54 16 123/69 100 Nasal Cannula 3 01/29/18 15:15 54 16 129/77 100 Nasal Cannula 3 01/29/18 15:00 60 16 108/66 100 Nasal Cannula 3 01/29/18 14:53 79 16 129/83 100 Nasal Cannula 3 01/29/18 14:40 70 16 119/69 100 Nasal Cannula 3 01/29/18 14:35 86 16 145/95 100 Simple Mask 8 01/29/18 14:30 92 16 100 01/29/18 14:29 97.6 97 16 148/97 100 Simple Mask 8 01/29/18 12:00 98.4 96 21 116/66 (83) 97 01/29/18 12:00 20 01/29/18 09:00 Room Air Intake and Output 01/29/18 01/30/18 19:00 07:00 Intake Total 1600 ml 1200 ml Output Total 1325 ml 1100 ml Balance 275 ml 100 ml Intake Oral 400 ml IV Total 1600 ml 800 ml Output Urine Total 1300 ml 1100 ml Stool Total 0 ml Estimated Blood Loss 25 ml # Voids 1 1 Height (Feet): 5 Height (Inches): 5.00 Weight (Pounds): 301 Chente Hunt MD Jan 30, 2018 08:27
[2018-01-30] MEDS ORDERED: Rate Change PCA 1 Each MISC PRN (09:00)
[2018-01-30] MEDS: Docusate 100mg cap ORAL SCH ×2 (09:01→17:34)
[2018-01-30] MEDS: Lactobacillus-GG tablet ORAL SCH ×2 (09:03→17:34)
[2018-01-30] MEDS: Heparin 5000 units/ml inj SUBQ SCH ×2 (09:04→20:56)
[2018-01-30 09:46] LABS: BASOPHILS % (AUTO) 0.4 % (0.0-2.0); EOSINOPHILS % (AUTO) 1.6 % (0.0-3.0); HEMATOCRIT 29.3 % (37.0-47.0); HEMOGLOBIN 9.5 G/DL (12.0-16.0); LYMPHOCYTES % (AUTO) 14.5 % (20.0-45.0); MEAN CORPUSCULAR VOLUME 87 FL (80-99); MONOCYTES % (AUTO) 6.4 % (1.0-10.0); NEUTROPHILS % (AUTO) 77.1 % (45.0-75.0); PLATELET COUNT 311 K/UL (150-450); RED BLOOD COUNT 3.37 M/UL (4.20-5.40); RED CELL DISTRIBUTION WIDTH 13.5 % (11.6-14.8); WHITE BLOOD COUNT 12.1 K/UL (4.8-10.8)
[2018-01-30 09:59] LABS: PHOSPHORUS 3.2 MG/DL (2.5-4.9)
[2018-01-30 10:11] LABS: ANION GAP 7 mmol/L (5-15); BLOOD UREA NITROGEN 7 mg/dL (7-18); CALCIUM 8.1 MG/DL (8.5-10.1); CARBON DIOXIDE 26 MMOL/L (21-32); CHLORIDE 106 MMOL/L (98-107); CREATININE 0.8 MG/DL (0.55-1.30); POTASSIUM 3.5 MMOL/L (3.5-5.1); SODIUM 139 MMOL/L (136-145)
--- NOTE | 2018-01-30 11:02 | General Progress Note ---
Progress Note Progress Note Pt seen and examined. POD# 1 from closure of left thigh wound. Had episode of bradycardia and transferred to telemetry last night. Will remain there until afternoon and if remains stable will transfer to 3rd floor this evening. Keep dressings in place until Thursday. Jm Khoury MD, MD Jan 30, 2018 11:02
[2018-01-30 12:00] VITALS: BP 111/50
[2018-01-30] MEDS ORDERED: Lactulose 20gm/30ml UDC ORAL SCH (13:00)
--- NOTE | 2018-01-30 14:04 | Consultation ---
Consult Note Consult Note HEMATOLOGY-ONCOLOGY CONSULTATION REFERRING MD: Maye Bernardo REASON FOR CONSULT: Leukocytosis, anemia DATE OF CONSULT: 01/30/2018 HPI: 47 yo F PMH of obesity Hidradenitis Suppurativa, Anemia, presents for worsening pain and drainage from B/L groin region. Patient has has history of HS with abscesses in the past and multiple admissions for surgery with Dr. Gutierrez. Patient denies fevers, chills, sob, dysuria chest pain or shortness of breath. She does not regularly exercise but states she is able to walk up a flight of stairs without chest pain or shortness of breath. Patient is also able to carry her groceries without any difficulty. Patient states on last admission the "second antibiotic" given was tolerated better than the first. Upon review of prior records, it appears patient was referring to levaquin being tolerated better than ancef. Hematology services consulted for the evaluation of anemia and leukocytosis. Current wbc at 12.1 and hgb at 9.5. Hgb has been <11 since admission and has dropped. Anemia w/u has been ordered. Allergies: NKDA Meds: occasionally iron sulfate PMH: HS PSH: multiple I and D for HS and groin abscesses in the past FmHx: father- HTN Soc Hx: patient used to smoke occasionally for several years, drinks occasionally, and occasionally uses marijuana Allergies: Coded Allergies: Shrimp (Verified Allergy, Unknown, 12/10/15) Medication History Scheduled Levofloxacin* (Levaquin*), 750 MG ORAL DAILY No Known Medications* (NKM - No Known Medications*), 0 ., (Reported) Scheduled PRN Hydrocodone Bit/Acetaminophen 10-325* ([place]rall 10-325*), 1 TAB ORAL Q6H PRN for For Pain, (Reported) Patient History Healthcare decision maker Resuscitation status Advanced Directive on File Family History Family History: Patient reports no known family medical history. Review of Systems All Other Systems: negative except mentioned in HPI ROS Narrative all ROS aside from HPI are negative including more than 12 systems Physical Exam General Appearance: WD/WN, no apparent distress, alert, morbidly obese Lines, tubes and drains: peripheral HEENT: normocephalic, atraumatic, anicteric, PERRL Neck: non-tender, normal alignment, supple, normal inspection Respiratory/Chest: chest wall non-tender, lungs clear, normal breath sounds, no respiratory distress, no accessory muscle use Cardiovascular/Chest: normal peripheral pulses, normal rate, regular rhythm, no JVD Abdomen: normal bowel sounds, non tender, soft, no organomegaly, no mass, abnormal bowel sounds Genitourinary/Rectal: other - B/L groin region mid and post, acitve drainage of serous fluid with renderness and erythema b/l Extremities: normal range of motion, non-tender, normal inspection, no calf tenderness, normal capillary refill Skin Exam: normal pigmentation, warm/dry Neurologic: phone counselor II-XII grossly normal, no motor/sensory deficits, oriented x 3 , responsive, normal mood/affect Musculoskeletal: normal muscle bulk LABS: wbc 12.1 hgb 9.5 plt 311 ASSESSMENT AND RECOMMENDATIONS # Anemia of chronic disease (or of iron def.) due to underlying chromic medical issues, multifactorial. --> Anemia w/u has been ordered --> Cont to monitor for improvement. --> Hgb goal >7. Transfuse prn. # Leukocytosis. Likely related to groin abscess. --> Cont to monitor for improvement. --> Currently not on abx. --> IVF. # Groin abscess. ID is following, appreciate recs. --> 01/29: S/P excision --> Wound care. --> Pain control. # Sinus Bradycardia - after procedure likely vagal response GREATLY APPRECIATE CONSULTATION. Fernando Mayfield MD Jan 30, 2018 14:04
[2018-01-30] MEDS ORDERED: PCA HYDROmorphone 1mg/ml 30 ML IV PRN (14:30)
[2018-01-30 16:00] VITALS: BP 112/70
[2018-01-30 20:00] VITALS: BP 104/51
[2018-01-31] VITALS (7 sets, daily range): BP systolic 103–126; BP diastolic 48–81
[2018-01-31] MEDS: ceFAZolin sod 1 GM in D5W 55 ML IVPB SCH ×3 (06:07→22:00)
[2018-01-31] MEDS: PCA shift volume MISC SCH (06:11)
--- NOTE | 2018-01-31 06:49 | General Progress Note ---
Assessment/Plan Problem List: (1) Abscess or cellulitis of groin SNOMED: 910739957 (2) Hidradenitis suppurativa ICD Codes: L73.2 - Hidradenitis suppurativa SNOMED: 07466468 (3) Anemia ICD Codes: D64.9 - Anemia, unspecified SNOMED: 570526104 Qualifiers: Qualified Codes: D64.9 - Anemia, unspecified (4) Sinus bradycardia ICD Codes: R00.1 - Bradycardia, unspecified SNOMED: 03570754 (5) Groin abscess ICD Codes: L02.214 - Cutaneous abscess of groin SNOMED: 16323836 Status: doing well, stable Assessment/Plan Hidradenitis suppurative with Groin Abscess -sp flap closure per Dr. Gutierrez - had sinus amina after procedure, amina when sleeps however HR improved when awake. likely due to anesthesia/vagal rflx... remained asymptomatic - cont abx - pain control - doing well - wound care - IV ABX, lvq, states she believes she had abnormal reaction to penicillins in the past - mobilization - bowel regimen Sinus Bradycardia - stable - can transfer back to med surg - keep K > 4 and Mg>2 Anemia - patient currently menstruating - iron panel - transfuse if Hgb < 7 - continue to monitor I have spent over 45 minutes regarding patient care and counseling and 35 minutes of face to face time with the patient. Thank you Please feel free to contact me at any time Chente Hunt MD [facility] Subjective Allergies: Coded Allergies: Shrimp (Verified Allergy, Unknown, 12/10/15) Subjective s/p wound closure stable denies any complaints no acute events overnight chart reviewed by myself 12 point ros negative except for the above Objective Last 24 Hour Vital Signs Date Time Temp Pulse Resp B/P (MAP) Pulse Ox O2 Delivery O2 Flow Rate FiO2 01/31/18 04:00 71 01/31/18 04:00 98.7 68 20 111/67 (82) 97 01/31/18 04:00 18 01/31/18 00:00 98.6 70 18 103/65 (78) 96 01/31/18 00:00 18 01/31/18 00:00 68 01/30/18 21:00 Room Air 01/30/18 20:00 18 11/17/18 20:00 98.4 71 18 104/51 (68) 97 01/30/18 20:00 67 01/30/18 16:00 16 01/30/18 16:00 98.2 76 18 112/70 (84) 96 01/30/18 16:00 77 01/30/18 12:27 98.1 01/30/18 12:00 16 01/30/18 12:00 98.1 87 18 111/50 (70) 97 01/30/18 12:00 86 01/30/18 09:00 Room Air 01/30/18 08:00 97.9 81 18 113/68 (83) 97 01/30/18 08:00 87 01/30/18 08:00 16 Intake and Output 01/30/18 01/31/18 18:59 06:59 Intake Total 450 ml Output Total 1200 ml 2000 ml Balance -750 ml -2000 ml Intake Oral 450 ml Output Urine Total 1200 ml 2000 ml Laboratory Tests 01/30/18 08:50: White Blood Count 12.1H, Red Blood Count 3.37L, Hemoglobin 9.5L, Hematocrit 29.3L, Mean Corpuscular Volume 87, Mean Corpuscular Hemoglobin 28.2, Mean Corpuscular Hemoglobin Concent 32.5, Red Cell Distribution Width 13.5, Platelet Count 311, Mean Platelet Volume 6.6, Neutrophils (%) (Auto) 77.1H, Lymphocytes ( %) (Auto) 14.5L, Monocytes (%) (Auto) 6.4, Eosinophils (%) (Auto) 1.6, Basophils (%) (Auto) 0.4, Sodium Level 139, Potassium Level 3.5, Chloride Level 106, Carbon Dioxide Level 26, Anion Gap 7, Blood Urea Nitrogen 7, Creatinine 0.8 , Estimat Glomerular Filtration Rate > 60, Glucose Level 111H, Calcium Level 8.1L, Phosphorus Level 3.2, Magnesium Level 1.5L, Ferritin 23, Folate 11.8 Height (Feet): 5 Height (Inches): 5.00 Weight (Pounds): 301 General Appearance: no apparent distress, alert EENT: PERRL/EOMI, normal ENT inspection, TMs normal, pharynx normal Neck: non-tender, normal alignment, supple, normal inspection Cardiovascular: normal peripheral pulses, normal rate, regular rhythm Respiratory/Chest: chest wall non-tender, lungs clear, normal breath sounds, no respiratory distress, no accessory muscle use Abdomen: normal bowel sounds, non tender, soft, no organomegaly, no mass Extremities: normal range of motion, non-tender, normal inspection, no calf tenderness 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
[2018-01-31 07:35] LABS: BASOPHILS % (AUTO) 0.3 % (0.0-2.0); EOSINOPHILS % (AUTO) 2.5 % (0.0-3.0); HEMATOCRIT 27.1 % (37.0-47.0); HEMOGLOBIN 8.8 G/DL (12.0-16.0); LYMPHOCYTES % (AUTO) 15.4 % (20.0-45.0); MEAN CORPUSCULAR VOLUME 87 FL (80-99); MONOCYTES % (AUTO) 6.8 % (1.0-10.0); PLATELET COUNT 297 K/UL (150-450); RED BLOOD COUNT 3.12 M/UL (4.20-5.40); RED CELL DISTRIBUTION WIDTH 13.3 % (11.6-14.8); WHITE BLOOD COUNT 8.6 K/UL (4.8-10.8)
[2018-01-31 07:45] LABS: ANION GAP 8 mmol/L (5-15); BLOOD UREA NITROGEN 6 mg/dL (7-18); CALCIUM 7.7 MG/DL (8.5-10.1); CARBON DIOXIDE 26 MMOL/L (21-32); CHLORIDE 106 MMOL/L (98-107); CREATININE 0.7 MG/DL (0.55-1.30); POTASSIUM 3.4 MMOL/L (3.5-5.1); SODIUM 140 MMOL/L (136-145)
--- NOTE | 2018-01-31 09:37 | General Progress Note ---
Assessment/Plan Status: stable Assessment/Plan # Anemia of iron deficiency due to underlying chromic medical issues, multifactorial. --> Anemia w/u has been reviewed. Ferritin of 23. --> Cont to monitor for improvement. --> Hgb goal >7. Transfuse prn. --> No hemolysis notes, peripheral smear has been reviewed. # Leukocytosis. Likely related to groin abscess. --> Cont to monitor for improvement. --> Currently not on abx. --> IVF. # Groin abscess. ID is following, appreciate recs. --> 01/29: S/P excision --> Wound care. --> Pain control. # Sinus Bradycardia - after procedure likely vagal response GREATLY APPRECIATE CONSULTATION. Subjective Date patient seen: Jan 31, 2018 Hematologic/Lymphatic: Reports: anemia Allergies: Coded Allergies: Shrimp (Verified Allergy, Unknown, 12/10/15) All Systems: reviewed and negative except above Subjective No acute events, H/H stable. Objective Last 24 Hour Vital Signs Date Time Temp Pulse Resp B/P (MAP) Pulse Ox O2 Delivery O2 Flow Rate FiO2 01/31/18 08:00 97.8 75 18 114/66 (82) 95 01/31/18 08:00 18 01/31/18 04:00 71 01/31/18 04:00 98.7 68 20 111/67 (82) 97 01/31/18 04:00 18 01/31/18 00:00 98.6 70 18 103/65 (78) 96 01/31/18 00:00 18 01/31/18 00:00 68 01/30/18 21:00 Room Air 01/30/18 20:00 18 01/30/18 20:00 98.4 71 18 104/51 (68) 97 01/30/18 20:00 67 01/30/18 16:00 16 01/30/18 16:00 98.2 76 18 112/70 (84) 96 01/30/18 16:00 77 01/30/18 12:27 98.1 01/30/18 12:00 16 01/30/18 12:00 98.1 87 18 111/50 (70) 97 01/30/18 12:00 86 Intake and Output 01/30/18 01/31/18 19:00 07:00 Intake Total 450 ml Output Total 1200 ml 2000 ml Balance -750 ml -2000 ml Intake Oral 450 ml Output Urine Total 1200 ml 2000 ml Laboratory Tests 01/31/18 06:55: White Blood Count 8.6, Red Blood Count 3.12L, Hemoglobin 8.8L, Hematocrit 27.1L , Mean Corpuscular Volume 87, Mean Corpuscular Hemoglobin 28.2, Mean Corpuscular Hemoglobin Concent 32.5, Red Cell Distribution Width 13.3, Platelet Count 297, Mean Platelet Volume 6.1L, Neutrophils (%) (Auto) 75.0, Lymphocytes ( %) (Auto) 15.4L, Monocytes (%) (Auto) 6.8, Eosinophils (%) (Auto) 2.5, Basophils (%) (Auto) 0.3, Sodium Level 140, Potassium Level 3.4L, Chloride Level 106, Carbon Dioxide Level 26, Anion Gap 8, Blood Urea Nitrogen 6L, Creatinine 0.7, Estimat Glomerular Filtration Rate > 60, Glucose Level 99, Calcium Level 7.7L Height (Feet): 5 Height (Inches): 5.00 Weight (Pounds): 301 Objective General Appearance: WD/WN, no apparent distress, alert, morbidly obese Lines, tubes and drains: peripheral HEENT: normocephalic, atraumatic, anicteric, PERRL Neck: non-tender, normal alignment, supple, normal inspection Respiratory/Chest: chest wall non-tender, lungs clear, normal breath sounds, no respiratory distress, no accessory muscle use Cardiovascular/Chest: normal peripheral pulses, normal rate, regular rhythm, no JVD Abdomen: normal bowel sounds, non tender, soft, no organomegaly, no mass, abnormal bowel sounds Genitourinary/Rectal: other - B/L groin region mid and post, acitve drainage of serous fluid with renderness and erythema b/l Extremities: normal range of motion, non-tender, normal inspection, no calf tenderness, normal capillary refill Skin Exam: normal pigmentation, warm/dry 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
[2018-01-31] MEDS: Docusate 100mg cap ORAL SCH ×2 (10:30→17:17)
[2018-01-31] MEDS: Lactobacillus-GG tablet ORAL SCH ×2 (10:30→17:18)
[2018-01-31] MEDS: Heparin 5000 units/ml inj SUBQ SCH ×2 (10:45→21:03)
[2018-01-31] MEDS ORDERED: Naloxone 0.4mg/ml Inj IV PRN (13:15)
[2018-01-31] MEDS ORDERED: DiphenhydrAMINE 50mg/ml Inj IVP PRN (13:45)
[2018-01-31] MEDS ORDERED: PCA HYDROmorphone 1mg/ml 30 ML IV PRN (13:45)
[2018-01-31] MEDS ORDERED: Rate Change PCA 1 Each MISC PRN (13:45)
[2018-01-31] MEDS ORDERED: Zolpidem 5mg tab ORAL PRN (19:00)
[2018-01-31] MEDS ORDERED: PCA shift volume MISC SCH (19:00)
[2018-01-31] MEDS ORDERED: Milk of Magnesia 30ml Ud ORAL PRN (21:00)
[2018-02-01] VITALS: BP 113/61
[2018-02-01 04:00] VITALS: BP 120/79
[2018-02-01] MEDS: ceFAZolin sod 1 GM in D5W 55 ML IVPB SCH ×3 (05:09→22:06)
[2018-02-01] MEDS ORDERED: PCA Education Pamphlet MISC ONE (07:00)
[2018-02-01] MEDS ORDERED: DiphenhydrAMINE 50mg/ml Inj IVP PRN (07:15)
[2018-02-01] MEDS ORDERED: Rate Change PCA 1 Each MISC PRN (07:15)
[2018-02-01] MEDS ORDERED: PCA HYDROmorphone 1mg/ml 30 ML IV PRN (07:15)
[2018-02-01] MEDS ORDERED: Naloxone 0.4mg/ml Inj IVP PRN (07:15)
[2018-02-01] MEDS ORDERED: PCA shift volume MISC SCH (07:15)
[2018-02-01 07:57] LABS: BASOPHILS % (AUTO) 0.4 % (0.0-2.0); EOSINOPHILS % (AUTO) 2.4 % (0.0-3.0); HEMATOCRIT 28.1 % (37.0-47.0); HEMOGLOBIN 9.2 G/DL (12.0-16.0); LYMPHOCYTES % (AUTO) 19.9 % (20.0-45.0); MEAN CORPUSCULAR VOLUME 87 FL (80-99); MONOCYTES % (AUTO) 7.2 % (1.0-10.0); NEUTROPHILS % (AUTO) 70.1 % (45.0-75.0); PLATELET COUNT 300 K/UL (150-450); RED BLOOD COUNT 3.21 M/UL (4.20-5.40); RED CELL DISTRIBUTION WIDTH 13.7 % (11.6-14.8); WHITE BLOOD COUNT 8.5 K/UL (4.8-10.8)
[2018-02-01 08:00] VITALS: BP 98/60
[2018-02-01 08:16] LABS: ANION GAP 6 mmol/L (5-15); BLOOD UREA NITROGEN 8 mg/dL (7-18); CALCIUM 7.9 MG/DL (8.5-10.1); CARBON DIOXIDE 28 MMOL/L (21-32); CHLORIDE 106 MMOL/L (98-107); CREATININE 0.7 MG/DL (0.55-1.30); POTASSIUM 3.6 MMOL/L (3.5-5.1); SODIUM 140 MMOL/L (136-145)
[2018-02-01] MEDS: Docusate 100mg cap ORAL SCH ×2 (08:47→17:33)
[2018-02-01] MEDS: Lactobacillus-GG tablet ORAL SCH ×2 (08:47→17:34)
[2018-02-01] MEDS: Heparin 5000 units/ml inj SUBQ SCH ×2 (08:48→20:41)
--- NOTE | 2018-02-01 11:05 | General Progress Note ---
Assessment/Plan Problem List: (1) Abscess or cellulitis of groin SNOMED: 081424365 (2) Hidradenitis suppurativa ICD Codes: L73.2 - Hidradenitis suppurativa SNOMED: 03096383 (3) Anemia ICD Codes: D64.9 - Anemia, unspecified SNOMED: 599246105 Qualifiers: Qualified Codes: D64.9 - Anemia, unspecified (4) Sinus bradycardia ICD Codes: R00.1 - Bradycardia, unspecified SNOMED: 09154486 (5) Groin abscess ICD Codes: L02.214 - Cutaneous abscess of groin SNOMED: 80524841 Assessment/Plan Hidradenitis suppurative with Groin Abscess -sp flap closure per Dr. Gutierrez , will discuss when patient is stable for dc per plastics point of view as well.. improving as expected.. will cont abx - cont abx - pain control - doing well - wound care - IV ABX, lvq, states she believes she had abnormal reaction to penicillins in the past - mobilization - bowel regimen Sinus Bradycardia - stable - can transfer back to med surg - keep K > 4 and Mg>2 Anemia - patient currently menstruating - iron panel - transfuse if Hgb < 7 - continue to monitor I have spent over 49 minutes regarding patient care and counseling and 35 minutes of face to face time with the patient. Thank you Please feel free to contact me at any time Chente Hunt MD [facility] Subjective Allergies: Coded Allergies: Shrimp (Verified Allergy, Unknown, 12/10/15) Subjective s/p wound closure stable denies any complaints no acute events overnight chart reviewed by myself improving as expected 12 point ros negative except for the above Objective Last 24 Hour Vital Signs Date Time Temp Pulse Resp B/P (MAP) Pulse Ox O2 Delivery O2 Flow Rate FiO2 02/01/18 09:24 19 02/01/18 09:00 Room Air 02/01/18 08:00 19 02/01/18 08:00 97.6 72 19 98/60 (73) 99 02/01/18 04:00 19 02/01/18 04:00 98.5 71 19 120/79 (93) 96 02/01/18 00:00 20 02/01/18 00:00 99.2 72 20 113/61 (78) 98 01/31/18 21:00 Room Air 01/31/18 20:00 98.9 80 18 126/81 (96) 99 01/31/18 20:00 18 01/31/18 19:00 18 01/31/18 16:00 18 01/31/18 16:00 97.9 68 20 111/72 (85) 98 01/31/18 13:15 80 20 109/58 (75) 96 01/31/18 12:00 18 01/31/18 12:00 98.1 72 20 121/48 (72) 96 Intake and Output 01/31/18 02/01/18 19:00 07:00 Intake Total 55 ml 500 ml Output Total 900 ml 1210 ml Balance -845 ml -710 ml Intake Oral 240 ml IV Total 55 ml 260 ml Output Urine Total 900 ml 1180 ml Drainage Total 30 ml Laboratory Tests 02/01/18 06:15: White Blood Count 8.5, Red Blood Count 3.21L, Hemoglobin 9.2L, Hematocrit 28.1L , Mean Corpuscular Volume 87, Mean Corpuscular Hemoglobin 28.5, Mean Corpuscular Hemoglobin Concent 32.6, Red Cell Distribution Width 13.7, Platelet Count 300, Mean Platelet Volume 6.5, Neutrophils (%) (Auto) 70.1, Lymphocytes (% ) (Auto) 19.9L, Monocytes (%) (Auto) 7.2, Eosinophils (%) (Auto) 2.4, Basophils (%) (Auto) 0.4, Sodium Level 140, Potassium Level 3.6, Chloride Level 106, Carbon Dioxide Level 28, Anion Gap 6, Blood Urea Nitrogen 8, Creatinine 0.7, Estimat Glomerular Filtration Rate > 60, Glucose Level 100, Calcium Level 7.9L Height (Feet): 5 Height (Inches): 5.00 Weight (Pounds): 301 General Appearance: no apparent distress, alert EENT: PERRL/EOMI, normal ENT inspection, TMs normal, pharynx normal Neck: non-tender, normal alignment, supple, normal inspection Cardiovascular: normal peripheral pulses, normal rate, regular rhythm Respiratory/Chest: chest wall non-tender, lungs clear, normal breath sounds, no respiratory distress, no accessory muscle use Abdomen: normal bowel sounds, non tender, soft, no organomegaly, no mass Neurologic: production miner 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
[2018-02-01 12:00] VITALS: BP 112/96
[2018-02-01] MEDS ORDERED: HYDROcodone/Acetamin 10/325 tab ORAL PRN (12:00)
--- NOTE | 2018-02-01 12:12 | General Progress Note ---
Assessment/Plan Status: stable Assessment/Plan # Anemia of iron deficiency due to underlying chromic medical issues, multifactorial. --> Anemia w/u has been reviewed. Ferritin of 23. --> Cont to monitor for improvement. --> Hgb goal >7. Transfuse prn. --> No hemolysis notes, peripheral smear has been reviewed. # Leukocytosis. Likely related to groin abscess. --> Cont to monitor for improvement. --> Currently not on abx. --> IVF. # Groin abscess. ID is following, appreciate recs. --> 01/29: S/P excision --> Wound care. --> Pain control. --> Pathology reports shows no evidence of malignancy # Sinus Bradycardia --> after procedure likely vagal response GREATLY APPRECIATE CONSULTATION. Subjective Date patient seen: Feb 01, 2018 Hematologic/Lymphatic: Reports: anemia Allergies: Coded Allergies: Shrimp (Verified Allergy, Unknown, 12/10/15) All Systems: reviewed and negative except above Subjective No acute events, H/H stable. Pathology reports shows no evidence of malignancy. Objective Last 24 Hour Vital Signs Date Time Temp Pulse Resp B/P (MAP) Pulse Ox O2 Delivery O2 Flow Rate FiO2 02/01/18 12:00 98.5 62 19 112/96 (101) 99 02/01/18 09:24 19 02/01/18 09:00 Room Air 02/01/18 08:00 19 02/01/18 08:00 97.6 72 19 98/60 (73) 99 02/01/18 04:00 19 02/01/18 04:00 98.5 71 19 120/79 (93) 96 02/01/18 00:00 20 02/01/18 00:00 99.2 72 20 113/61 (78) 98 01/31/18 21:00 Room Air 01/31/18 20:00 98.9 80 18 126/81 (96) 99 01/31/18 20:00 18 01/31/18 19:00 18 01/31/18 16:00 18 01/31/18 16:00 97.9 68 20 111/72 (85) 98 01/31/18 13:15 80 20 109/58 (75) 96 Intake and Output 01/31/18 02/01/18 19:00 07:00 Intake Total 55 ml 500 ml Output Total 900 ml 1210 ml Balance -845 ml -710 ml Intake Oral 240 ml IV Total 55 ml 260 ml Output Urine Total 900 ml 1180 ml Drainage Total 30 ml Laboratory Tests 02/01/18 06:15: White Blood Count 8.5, Red Blood Count 3.21L, Hemoglobin 9.2L, Hematocrit 28.1L , Mean Corpuscular Volume 87, Mean Corpuscular Hemoglobin 28.5, Mean Corpuscular Hemoglobin Concent 32.6, Red Cell Distribution Width 13.7, Platelet Count 300, Mean Platelet Volume 6.5, Neutrophils (%) (Auto) 70.1, Lymphocytes (% ) (Auto) 19.9L, Monocytes (%) (Auto) 7.2, Eosinophils (%) (Auto) 2.4, Basophils (%) (Auto) 0.4, Sodium Level 140, Potassium Level 3.6, Chloride Level 106, Carbon Dioxide Level 28, Anion Gap 6, Blood Urea Nitrogen 8, Creatinine 0.7, Estimat Glomerular Filtration Rate > 60, Glucose Level 100, Calcium Level 7.9L Height (Feet): 5 Height (Inches): 5.00 Weight (Pounds): 301 Objective General Appearance: WD/WN, no apparent distress, alert, morbidly obese Lines, tubes and drains: peripheral HEENT: normocephalic, atraumatic, anicteric, PERRL Neck: non-tender, normal alignment, supple, normal inspection Respiratory/Chest: chest wall non-tender, lungs clear, normal breath sounds, no respiratory distress, no accessory muscle use Cardiovascular/Chest: normal peripheral pulses, normal rate, regular rhythm, no JVD Abdomen: normal bowel sounds, non tender, soft, no organomegaly, no mass, abnormal bowel sounds Genitourinary/Rectal: other - B/L groin region mid and post, acitve drainage of serous fluid with renderness and erythema b/l Extremities: normal range of motion, non-tender, normal inspection, no calf tenderness, normal capillary refill Skin Exam: normal pigmentation, warm/dry 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
[2018-02-01 16:00] VITALS: BP 104/58
[2018-02-01 20:00] VITALS: BP 104/58
[2018-02-02] VITALS: BP 149/68
[2018-02-02 04:00] VITALS: BP 114/62
[2018-02-02] MEDS: ceFAZolin sod 1 GM in D5W 55 ML IVPB SCH ×2 (05:12→13:59)
[2018-02-02 07:40] LABS: BASOPHILS % (AUTO) 0.5 % (0.0-2.0); EOSINOPHILS % (AUTO) 2.1 % (0.0-3.0); HEMATOCRIT 28.7 % (37.0-47.0); HEMOGLOBIN 9.4 G/DL (12.0-16.0); LYMPHOCYTES % (AUTO) 20.6 % (20.0-45.0); MEAN CORPUSCULAR VOLUME 87 FL (80-99); MONOCYTES % (AUTO) 6.4 % (1.0-10.0); NEUTROPHILS % (AUTO) 70.3 % (45.0-75.0); PLATELET COUNT 323 K/UL (150-450); RED BLOOD COUNT 3.29 M/UL (4.20-5.40); RED CELL DISTRIBUTION WIDTH 13.3 % (11.6-14.8); WHITE BLOOD COUNT 8.9 K/UL (4.8-10.8)
[2018-02-02 08:00] VITALS: BP 95/57
[2018-02-02] MEDS: Docusate 100mg cap ORAL SCH (09:02)
[2018-02-02] MEDS: Lactobacillus-GG tablet ORAL SCH (09:02)
[2018-02-02] MEDS: Heparin 5000 units/ml inj SUBQ SCH (09:03)
--- NOTE | 2018-02-02 09:28 | Discharge Summary ---
Discharge Summary Hospital Course Date of Admission Jan 26, 2018 at 12:55 Date of Discharge 02/02/18 Admitting Diagnosis HIDRADENITIS HPI Jolanta Sanchez is a 47 year old female who was admitted on Jan 26, 2018 at 12: 55 for Hidradenitis Hospital Course Ms Sanchez presented with concerns of Groin Abscess noted to have Hidradenitis suppurative, underwent excision sp flap closure per Dr. Gutierrez patient was noted to have sinus bradycardia during her stay, after procedure, patient was kept on tele floor for 24hrs and monitored. Patient remained stable , asymptomatic. has been improving as expected. Per Dr. Gutierrez patient stable to be dc'd home with PO lvq, pain control and bowel care Physical Exam: General Appearance: no apparent distress, alert EENT: PERRL/EOMI, normal ENT inspection, TMs normal, pharynx normal Neck: non-tender, normal alignment, supple, normal inspection Cardiovascular: normal peripheral pulses, normal rate, regular rhythm Respiratory/Chest: chest wall non-tender, lungs clear, normal breath sounds, no respiratory distress, no accessory muscle use Abdomen: normal bowel sounds, non tender, soft, no organomegaly, no mass Neurologic: drier take off tender II-XII grossly normal, no motor/sensory deficits, alert, oriented x 3, responsive, normal mood/affect Skin: normal pigmentation, warm/dry MED REC: levofloxacin 750 po qday x 7 days. 7 tabs Allred 5-325 po prn pain x 7 days, 20 tabs senna 8.6mg pr prn constipation x 7 days. 7 tabs I have spent over 52 in the discharge coordiantion of this patient patient stable for dc home patient is to f/u with Dr. Gutierrez (plastic surgeon) as scheduled. Hidradenitis suppurative with Groin Abscess -sp flap closure per Dr. Gutierrez , will discuss when patient is stable for dc per plastics point of view as well.. improving as expected.. will cont abx - cont abx - pain control - doing well - wound care - IV ABX, lvq, states she believes she had abnormal reaction to penicillins in the past - mobilization - bowel regimen Sinus Bradycardia - stable - can transfer back to med surg - keep K > 4 and Mg>2 Anemia - patient currently menstruating - iron panel - transfuse if Hgb < 7 - continue to monitor Thank you Please feel free to contact me at any time Chente Hunt MD [facility] Discharge Condition Upon Discharge: stable Discharge Disposition Patient was discharged to Discharge Diagnoses: (1) Sepsis (2) Hidradenitis suppurativa (3) Abscess or cellulitis of groin (4) Sinus bradycardia Chente Hunt MD Feb 02, 2018 09:28
[2018-02-02] MEDS ORDERED: LEVOFLOXACIN750 MG ORAL (11:42)
[2018-02-02] MEDS ORDERED: NORCO 5-325 TA1 EACH ORAL (11:42)
[2018-02-02] MEDS ORDERED: SENNA8.6 M2 PO (11:43)
[2018-02-02 12:00] VITALS: BP 105/52
--- NOTE | 2018-02-02 14:21 | Cardiology Report ---
APPROVED REPORT EXAM: Two-dimensional and M-mode echocardiogram with Doppler and color Doppler. INDICATION BRADYCARDIA M-Mode DIMENSIONS IVSd1.4 (0.7-1.1cm)Left Atrium (MM)3.5 (1.6-4.0cm) LVDd6.6 (3.5-5.6cm)Aortic Root3.5 (2.0-3.7cm) PWd1.6 (0.7-1.1cm)Aortic Cusp Exc.1.8 (1.5-2.0cm) IVSs2.0 cm LVDs4.8 (2.5-4.0cm) PWs2.0 cm Normal left ventricular chamber size, systolic function and wall motion. Left ventricular ejection fraction estimated to be 55-60 %. No evidence of left ventricular hypertrophy . No evidence of pericardial effusion. All other cardiac chamber sizes are within normal limits. Focal aortic valve sclerosis with adequate cusp excursion. Thickened mitral valve leaflets with normal excursion. Mitral annulus and aortic root calcification. Normal pulmonic valve structure. Normal tricuspid valve structure. IVC at size 1.8 cm without physiologic collapse, suggestive to increase RA pressure . A color flow and spectral Doppler study was performed and revealed: No aortic regurgitation.. Mild mitral regurgitation. Normal left ventricular diastolic function . Mild tricuspid regurgitation. Tricuspid systolic velocities suggests peak right ventricular systolic pressure of 34 mmHg. No Pulmonic regurgitation present.
[2018-02-02 16:00] VITALS: BP 119/88
[2018-02-02] MEDS ORDERED: Tubing IV Secondary IV ONE (16:51)
[2018-02-02] MEDS ORDERED: NS 275ml ONE (16:51)
--- NOTE | 2018-02-02 17:00 | Cardiology Report ---
APPROVED REPORT EKG Measurement Heart [id number] Sinus bradycardia Cannot rule out Anterior infarct, age undetermined Abnormal ECG
== END 2018-02-02 16:52 | disposition home or self-care (01) | DRG 574 ==
LOC: EMR 12:30 → EDBEDREQ 12:33 → 3E 12:55 → EDBEDREQ 13:52 → 3E 14:24 → 2E 01-29 18:30 → 3E 01-31 12:52
PROC: 0H8JXZZ Division of Left Upper Leg Skin, External Approach (ICD-10-PCS; principal; 2018-01-27 14:00)
PROC: 0H87XZZ Division of Abdomen Skin, External Approach (ICD-10-PCS; principal; 2018-01-27 14:00)
PROC: 0JBM0ZZ Excision of Left Upper Leg Subcutaneous Tissue and Fascia, Open Approach (ICD-10-PCS; principal; 2018-01-27 14:00)
PROC: 0HXLXZZ Transfer Left Lower Leg Skin, External Approach (ICD-10-PCS; 2018-01-29)
PROC: 0JDM0ZZ Extraction of Left Upper Leg Subcutaneous Tissue and Fascia, Open Approach (ICD-10-PCS; 2018-01-29)
DX: L03.116 Cellulitis of left lower limb (principal); Z68.43 Body mass index [BMI] 50.0-59.9, adult; L73.2 Hidradenitis suppurativa; D50.9 Iron deficiency anemia, unspecified; E66.01 Morbid (severe) obesity due to excess calories; D72.829 Elevated white blood cell count, unspecified; R00.1 Bradycardia, unspecified
CPT/HCPCS: 36415; 71045; 80048; 80053; 80061; 81001; 81025; 82607; 82728; 82746; 82747; 83540; 83550; 83735; 84100; 85025; 85610; 85730; 87040; 87086; 93005; 93306; 94003; 94150; 99285; J2250; J2405; J2710; J2765; J8499